=== PATIENT | male | born 1965 | race Caucasian/White ===

== ENCOUNTER 2020-03-17 08:34 | Outpatient (CLI) | payer MEDICARE, MEDICAID, SELFPAY ==
--- NOTE | 2020-03-17 08:42 | NM_ITS ---
WS: [id number] RI bone 3 phase [id number] REASON FOR EXAM: CHRONIC PAIN OF LEFT L EXTREMITY/L ANKLE PAIN/OSTEOMYELITIS TECHNICAL: 3 phase bone scan the dose 23.5 mCi technetium labeled MDP. Patient was scanned immediatel y with delayed images and further delayed images. The blood pool images show increased activity along the shaft of the left tibia x-ray show this is a remote fracture. There is also increased activity n oted in the mid the fibula at this also is a fracture which is healing. The alignment is satisfactory Three-phase study showed no evidence to suggest infection. The remaining skeletal system showed homogeneous configuration no pathological activity is seen. RI/RI bone 3 phase [id number] IMPRESSION: Activity is seen in the mid shaft of the left tibia fibula review of x-ray show healing fractures in this area with internal fixation.
--- NOTE | 2020-03-17 11:52 | XR_ITS ---
WS: [id number] XR tibia fibula LT 2V [id number] REASON FOR EXAM: BONE SCAN COMPARISON FINDINGS: Tibia fibula on the left were evaluated due to slight abnormal changes on the bone scan. Th e changes are suggestive of healing fractures which are in good alignment a elizondo pin is seen. XR/XR tibia fibula LT 2V [id number] IMPRESSION: Area of increased activity on the bone scan is secondary to previous postop aminata nges of the tibia fibula from fractures.
== END 2020-03-17 08:35 | disposition home or self-care (01) ==
LOC: RAD 08:40
PROVIDERS: PCP Family Medicine; Visit Provider Family Medicine
DX: M79.605 Pain in left leg (principal); G89.29 Other chronic pain; M25.572 Pain in left ankle and joints of left foot; M86.8X6 Other osteomyelitis, lower leg
CPT/HCPCS: 73590; 78315; A9561

== ENCOUNTER → 2020-03-31 11:06 | Outpatient (BNVA) | payer MEDICARE, MEDICAID, SELFPAY | PROVIDERS: PCP Family Medicine; Referring Provider Family Medicine; Visit Provider Specialist | DX: S82.202A Unspecified fracture of shaft of left tibia, initial encounter for closed fracture (principal); S82.402A Unspecified fracture of shaft of left fibula, initial encounter for closed fracture; X58.XXXA Exposure to other specified factors, initial encounter | CPT/HCPCS: 73590 ==

== ENCOUNTER 2020-04-12 17:46 | Inpatient (IN) | payer MEDICARE, MEDICAID, SELFPAY ==
[2020-04-12 17:50] VITALS: BP 127/70; PULSE 65; RESP 18; TEMP 36.9; O2SAT 96; BMI 20.4
--- NOTE | 2020-04-12 18:14 | ED_ITS ---
HPI - Psych General: Chief Complaint: Psychiatric Symptoms Stated Complaint: MHE Time Seen by Provider: 04/12/20 17:55 History of Present Illness: HPI Narrative: Patient says he did not want to live anymore he was on the phone with the doctor today because he is trying get increasing his pain medications he tolerated while living more tired living this way she called ambulance and he is here now very upset because he just hurts he says he can go another day like this he is wants to take his life does not have a plan. complaint: suicidal ideation Onset (ago): week(s) Duration: constant and getting worse History of same: Yes Relieving factors: none Context: other (Had his medicines cut back for pain control) Associated psychiatric symptoms: depression and suicidal ideation Associated symptoms: Reports no associated symptoms and depression Treatments prior to arrival: none If self harm: admits thoughts of self harm Review of Systems Const: Denies: fever(s), chills or body aches Eyes: Denies: change in vision or blurry vision ENMT: Denies: throat pain or nasal congestion Card: Denies: chest pain or dyspnea on exertion Resp: Denies: dyspnea, productive cough or non-productive cough GI: Denies: abdominal pain, nausea or vomiting : Denies: difficulty urinating Musc: Reports: neck pain, back pain, extremity pain and joint pain Skin/Breast: Denies: rash Neuro: Denies: headache(s) Psych: Reports: depression; Denies: anxiety Jacques/Lymph: Denies: easy bruising PFSH ED PFSH: Medical History (Updated 04/02/20 @ 14:03 by Cande Dupont MD) ASHD (arteriosclerotic heart disease) CHF (congestive heart failure) GERD (gastroesophageal reflux disease) Hyperlipidemia IBS (irritable bowel syndrome) Nonischemic cardiomyopathy Surgical History S/P appendectomy S/P cholecystectomy S/P ICD (internal cardiac defibrillator) procedure Family History Mother Cancer Social History Smoking and tobacco status: never smoked Household members: spouse Marital status: Physical Exam Const: COMMON NORMALS: no acute distress, average body habitus and patient oriented x3 HENMT: COMMON NORMALS: normocephalic HEAD & SCALP: normal to inspection and normocephalic FACE & SINUS: normal facial exam Eye: COMMON NORMALS: conjunctivae normal GENERAL EYE: appearance normal, both eyes and all related structures CONJUNCTIVA: Yes conjunctivae normal Neck/C-Spine: COMMON NORMALS: no JVD Chest: COMMONS NORMALS: normal inspection of the chest Resp: COMMON NORMALS: normal respiratory effort and clear to auscultation bilaterally AUSCULTATION: clear to auscultation bilaterally Cardio: COMMON NORMALS: no JVD, regular rate and regular rhythm RATE: regular rate RHYTHM: regular rhythm GI: COMMON NORMALS: Normal to inspection, nondistended, normoactive bowel sounds present Extremity: COMMON NORMALS: normal to inspection and full ROM Neuro: COMMON NORMALS: patient oriented x3 Psych: COMMON NORMALS: Normal thought process present, cooperative and speech normal APPEARANCE: Yes grossly normal ATTITUDE: Yes agitated ACTIVITY/MOTOR BEHAVIOR: Yes appropriate eye contact SPEECH: Yes normal speech MOOD & AFFECT: Yes depressed mood THOUGHT PROCESS: Normal thought process present THOUGHT CONTENT: Yes Normal thought content present ATTENTION/CONCENTRATION: Yes attention grossly intact MEMORY/COGNITION: Yes memory grossly intact INSIGHT: Good insight present (Psych) JUDGEMENT: Good judgement present (Psych) MDM - Psych MDM Narrative: Medical decision making narrative: spoke with Dr. Edward - will admit Lab Data: Labs: Lab Results 04/12/20 04/12/20 04/12/20 Range/Units 18:55 18:55 19:40 WBC 10.0 (4.0-10.0) 10^3/ uL RBC 5.24 (4.1-5.3) 10^6/u L Hgb 15.0 (11.7-16.6) g/dL Hct 45.0 (42.0-52.0) % MCV 85.9 (80-94) fL MCH 28.6 (28.0-34.0) pg MCHC 33.3 (30.0-36.0) g/dL RDW 12.7 (12.1-15.1) % Plt Count 263 (130-400) 10^3/c mm MPV 9.2 (7.4-10.4) fL Neut % (Auto) 64.3 % Lymph % (Auto) 24.1 % [place] % (Auto) 9.4 % Eos % (Auto) 1.6 % Baso % (Auto) 0.4 % Neut # (Auto) 6.4 (1.8-7.7) 10^3/u L Lymph # (Auto) 2.4 (0.8-4.8) 10^3/u L [place] # (Auto) 0.9 (0.2-0.9) 10^3/u L Eos # (Auto) 0.2 (0.0-0.8) 10^3/u L Baso # (Auto) 0.0 (0.0-0.1) 10^3/u L Nucleated RBC % (a uto) 0 % Nucleated RBCs # 0.0 /100WBC Sodium 140 (136-145) mmol/L Potassium 3.9 (3.5-5.1) mmol/L Chloride 102 (98-107) mmol/L Carbon Dioxide 23 (22-29) mmol/L Anion Gap 18.9 (5-19) BUN 13 (6-20) mg/dL Creatinine 0.9 (0.7-1.2) mg/dL GFR Calculation 87.9 L (90-130) mL/min Glucose 167 H (65-115) mg/dL Calculated Osmolal ity 290 (285-295) mOsm/k g Calcium 9.5 (8.5-10.5) mg/dL Urine Color Yellow (Yellow) Urine Appearance Clear (CLEAR) Urine pH 5 (5-7) Ur Specific Gravit y 1.025 (1.005-1.030) Urine Protein Neg (Negative) Urine Glucose (UA) 2+ (Normal) Urine Ketones Negative (Negative) Urine Blood Neg (Negative) Urine Nitrate Negative (Negative) Urine Bilirubin Neg (NEGATIVE) Urine Urobilinogen Norm (Negative) mg/dL Ur Leukocyte Sandi ase Negative (Negative) Salicylates < 0.3 L (3-10) mg/dL Urine Opiates Scre en (Negative) ng/mL Acetaminophen < 5.0 L (10-30) ug/mL Ur Barbiturates Sc reen (Negative) ng/mL Ur Phencyclidine S crn (Negative) ng/mL Ur Amphetamines Sc reen (Negative) ng/mL U Benzodiazepines Scrn (Negative) ng/mL Urine Cocaine Scre en (Negative) ng/mL U Marijuana (THC) Screen (Negative) ng/mL Ethyl Alcohol < 10 (0-10) mg/dL 04/12/20 Range/Units 19:40 WBC (4.0-10.0) 10^3/ uL RBC (4.1-5.3) 10^6/u L Hgb (11.7-16.6) g/dL Hct (42.0-52.0) % MCV (80-94) fL MCH (28.0-34.0) pg MCHC (30.0-36.0) g/dL RDW (12.1-15.1) % Plt Count (130-400) 10^3/c mm MPV (7.4-10.4) fL Neut % (Auto) % Lymph % (Auto) % [place] % (Auto) % Eos % (Auto) % Baso % (Auto) % Neut # (Auto) (1.8-7.7) 10^3/u L Lymph # (Auto) (0.8-4.8) 10^3/u L [place] # (Auto) (0.2-0.9) 10^3/u L Eos # (Auto) (0.0-0.8) 10^3/u L Baso # (Auto) (0.0-0.1) 10^3/u L Nucleated RBC % (a uto) % Nucleated RBCs # /100WBC Sodium (136-145) mmol/L Potassium (3.5-5.1) mmol/L Chloride (98-107) mmol/L Carbon Dioxide (22-29) mmol/L Anion Gap (5-19) BUN (6-20) mg/dL Creatinine (0.7-1.2) mg/dL GFR Calculation (90-130) mL/min Glucose (65-115) mg/dL Calculated Osmolal ity (285-295) mOsm/k g Calcium (8.5-10.5) mg/dL Urine Color (Yellow) Urine Appearance (CLEAR) Urine pH (5-7) Ur Specific Gravit y (1.005-1.030) Urine Protein (Negative) Urine Glucose (UA) (Normal) Urine Ketones (Negative) Urine Blood (Negative) Urine Nitrate (Negative) Urine Bilirubin (NEGATIVE) Urine Urobilinogen (Negative) mg/dL Ur Leukocyte Sandi ase (Negative) Salicylates (3-10) mg/dL Urine Opiates Scre en Negative (Negative) ng/mL Acetaminophen (10-30) ug/mL Ur Barbiturates Sc reen Negative (Negative) ng/mL Ur Phencyclidine S crn Negative (Negative) ng/mL Ur Amphetamines Sc reen Negative (Negative) ng/mL U Benzodiazepines Scrn Negative (Negative) ng/mL Urine Cocaine Scre en Negative (Negative) ng/mL U Marijuana (THC) Screen Negative (Negative) ng/mL Ethyl Alcohol (0-10) mg/dL Discharge Plan Discharge Prescriptions: No Action clonazepam [Klonopin] 1 mg tablet 1 mg PO QID RF: 0 lisinopril 2.5 mg tablet 2.5 mg PO DAILY RF: 0 sotalol [Betapace] 120 mg tablet 120 mg PO BID RF: 0 oxycodone See Rx Instructions .ROUTE .COMPLEX PRN (Reason: Pain) RF: 0 magnesium oxide 500 mg capsule 500 mg PO DAILY RF: 0 Trintellix 5 mg tablet 5 mg PO DAILY RF: 0 Coding Level of Care Code ED 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
[2020-04-12 18:31] VITALS: RESP 20
[2020-04-12] MEDS: oxyCODONE-APAP 10-325 mg Tablet 1 TAB PO (18:31)
[2020-04-12 19:07] LABS: Basophils % 0.4 %; Eosinophils # 0.2 10^3/uL (0.0-0.8); Eosinophils % 1.6 %; Lymphocytes # 2.4 10^3/uL (0.8-4.8); Lymphocytes % 24.1 %; Mean Corpuscular HGB Conc 33.3 g/dL (30.0-36.0); Mean Corpuscular Hemoglobin 28.6 pg (28.0-34.0); Mean Corpuscular Volume 85.9 fL (80-94); Mean Platelet Volume 9.2 fL (7.4-10.4); Monocytes # 0.9 10^3/uL (0.2-0.9); Monocytes % 9.4 %; Neutrophils # 6.4 10^3/uL (1.8-7.7); Neutrophils % 64.3 %; Nucleated Red Blood Cells % 0 %; Platelet Count 263 10^3/cmm (130-400); Red Blood Count 5.24 10^6/uL (4.1-5.3); Red Cell Distribution Width 12.7 % (12.1-15.1)
[2020-04-12 19:30] LABS: Anion Gap 18.9 (5-19); Blood Urea Nitrogen 13 mg/dL (6-20); Calcium 9.5 mg/dL (8.5-10.5); Carbon Dioxide 23 mmol/L (22-29); Chloride 102 mmol/L (98-107); Glomerular Filtration Rate 87.9 mL/min (90-130); Glucose 167 mg/dL (65-115); Osmolality Calculated 290 mOsm/kg (285-295); Potassium 3.9 mmol/L (3.5-5.1); Sodium 140 mmol/L (136-145)
[2020-04-12 19:49] LABS: Add Urine Microscopic? NO
[2020-04-12 19:52] LABS: Bilirubin Urine Neg (NEGATIVE); Blood Urine Neg (Negative); Glucose Urine UA 2+ (Normal); Ketones Urine Negative (Negative); Leukocyte Esterase Urine Negative (Negative); Nitrate Urine Negative (Negative); Protein Urine Neg (Negative); Specific Gravity, Urine 1.025 (1.005-1.030); Urine Appearance Clear (CLEAR); Urine Color Yellow (Yellow); Urobilinogen Urine Norm (Negative); pH Urine 5 (5-7)
[2020-04-12 20:01] LABS: Amphetamines Screen Urine Negative (Negative); Barbiturates Screen Urine Negative (Negative); Benzodiazepines Screen Urine Negative (Negative); Cocaine Screen Urine Negative (Negative); Opiate Screen Urine Negative (Negative); PCP Screen Urine Negative (Negative); THC Screen Urine Negative (Negative)
[2020-04-12 20:14] LABS: Acetaminophen < 5.0 ug/mL (10-30); Alcohol Level < 10 mg/dL (0-10); Salicylate < 0.3 mg/dL (3-10)
[2020-04-12 21:42] VITALS: BP 126/69; PULSE 85; RESP 14; O2SAT 98
[2020-04-12 22:24] VITALS: BP 110/70; PULSE 86; RESP 18; TEMP 36.6; O2SAT 97
[2020-04-12] MEDS: trazodone 50 mg Tablet PO (23:38)
[2020-04-12] MEDS: hyDROXYzine 25 mg Capsule 50 MG PO (23:38)
[2020-04-13] VITALS (9 sets, daily range): BP systolic 88–112; BP diastolic 55–69; PULSE 70–88; RESP 16–20; TEMP 36.8–37; O2SAT 95–98
[2020-04-13] MEDS: oxyCODONE-APAP 10-325 mg Tablet 1 TAB PO ×4 (00:21→20:13)
[2020-04-13] MEDS: lisinopril 5 mg Tablet 2.5 MG PO (08:06)
[2020-04-13] MEDS: sotalol 80 mg Tablet 120 MG PO ×2 (08:06→17:20)
[2020-04-13] MEDS: CLONazepam 1 mg Tablet PO ×4 (08:06→20:13)
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
[2020-04-13] MEDS: ARIPiprazole 10 mg Tablet PO (17:20)
[2020-04-14 05:41] VITALS: RESP 17; O2SAT 96
[2020-04-14] MEDS: oxyCODONE-APAP 10-325 mg Tablet 1 TAB PO ×2 (05:41→11:56)
[2020-04-14 06:00] VITALS: BP 97/59; PULSE 76; RESP 17; TEMP 36.7; O2SAT 96
[2020-04-14] MEDS: sotalol 80 mg Tablet 120 MG PO (08:27)
[2020-04-14] MEDS: lisinopril 5 mg Tablet 2.5 MG PO (08:30)
[2020-04-14] MEDS: CLONazepam 1 mg Tablet PO ×2 (08:30→13:14)
[2020-04-14] MEDS: ARIPiprazole 10 mg Tablet PO (08:30)
--- NOTE | 2020-04-14 11:14 | PC.SOCIAL ---
important message for medicare provided. signed and dated copy in chart and copy given to patient.
[2020-04-14 11:56] VITALS: RESP 18
--- NOTE | 2020-04-14 12:02 | PC.NURSE ---
PT NOTE PT RECEIVED OXYCODONE FOR PAIN
[2020-04-14 13:33] VITALS: PULSE 72; RESP 17; O2SAT 95
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
[2020-04-14 15:15] VITALS: BP 128/85; PULSE 72; RESP 17; O2SAT 95
== END 2020-04-14 15:29 | disposition home or self-care (01) | DRG 880 ==
LOC: ER 18:19 → NP 21:05
PROVIDERS: Nurse Practitioner Family; Admitting Provider Psychiatry & Neurology Psychiatry; PCP Family Medicine; Visit Provider Psychiatry & Neurology Psychiatry
DX: F41.8 Other specified anxiety disorders (principal); I42.8 Other cardiomyopathies; Z95.810 Presence of automatic (implantable) cardiac defibrillator; I50.9 Heart failure, unspecified; E78.5 Hyperlipidemia, unspecified; I25.10 Atherosclerotic heart disease of native coronary artery without angina pectoris; F10.10 Alcohol abuse, uncomplicated; I11.0 Hypertensive heart disease with heart failure
CPT/HCPCS: 12345; 36415; 80048; 80306; 80307; 81003; 85025; 99284

== ENCOUNTER 2020-04-30 04:07 | Inpatient (IN) | payer MEDICARE, MEDICAID, SELFPAY ==
[2020-04-30] VITALS (13 sets, daily range): BP systolic 91–142; BP diastolic 55–86; PULSE 57–92; RESP 11–20; TEMP 36.6–37; O2SAT 92–98; BMI 33.0
--- NOTE | 2020-04-30 04:31 | XRR_ITS ---
PROCEDURE INFORMATION: Exam: XR Chest, 1 View Exam date and time: 04/30/2020 4:36 AM Age: 54 years old Clinical indication: Dyspnea; Prior surgery; Surgery date: 6+ months; Surgery type: Pacer TECHNIQUE: Imaging protocol: XR of the chest Views: 1 view. COMPARISON: CR Chest 1 [place] [id number] 10/06/2019 1:13 PM FINDINGS: Tubes, catheters and devices: AICD. Lungs: Emphysematous change, without acute infiltrate. Pleural space: No pleural effusion. Heart/Mediastinum: No cardiomegaly. Bones/joints: Degenerative change. Status post ORIF of left clavicular fracture. When correlating with the previous study, no significant interval changes are present. XR/XR chest 1V portable [id number] IMPRESSION: Stable appearance of the chest, not significantly changed from 10/06/19.
--- NOTE | 2020-04-30 04:32 | ECG_ITS ---
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 Measurements Intervals Dewitt Rate: 74 P: 62 MT: 176 QRS: 64 QRSD: 110 T: 71 QT: 382 QTc: 426 Interpretive Statements SINUS RHYTHM Compared to ECG 05/30/2019 02:40:09 Sinus bradycardia no longer present Electronically Signed On 04-30-2020 22:47:27 CDT by Hosea Mendoza M.D. [email or web address]
[2020-04-30] MEDS: ondansetron 2 mg/ML SDV 2 mL 4 MG IVP (04:42)
--- NOTE | 2020-04-30 05:01 | ED_ITS ---
Documented by User: Jessica Tong 04/30/20 05:08 HPI - SOB/Dyspnea General: Chief Complaint: Shortness of Breath/Dyspnea Stated Complaint: sob Time Seen by Provider: 04/30/20 04:20 Source: patient Mode of arrival: ambulatory Limitations: no limitations History of Present Illness: HPI Narrative: Mr. Garcia is a nice 54-year-old male who comes in complaining of shortness of breath. Symptoms have been going on for the past 2 days. He has orthopnea, and dyspnea on exertion. He denies fever or cough. He denies any ill contacts. Patient states he was here and admitted for similar symptoms approximately 3 years ago but he is uncertain of the formal diagnosis. He denies any leg pain or swelling. He adamantly denies any chest pain. He does state that he feels somewhat nauseated but he denies any abdominal or back pain. Exertion makes his symptoms worse and rest makes them better. The patient states he feels most comfortable sitting in upright position in bed or in a chair. He is not tried anything for this at home and he does not think he has been in contact with anyone with the COVID virus. Associated symptoms: Reports nausea and orthopnea; Deny abdominal pain, chest congestion, chest pain, diaphoresis, dizziness, extremity pain, fever(s), hemoptysis, lightheadedness, palpitations, syncope or vomiting Review of Systems Const: Denies: fever(s), chills, body aches, fatigue, malaise or diaphoresis Eyes: Denies: change in vision, blurry vision, blind spots, photophobia, eye discharge or eye redness ENMT: Denies: throat pain, odynophagia, hoarseness, swelling of lips/tongue, oral sores, ear or mastoid pain, ear discharge, change in hearing or nasal discharge Card: Reports: dyspnea on exertion and orthopnea; Denies: chest pain, palpitations, irregular heart rhythm, edema, lightheadedness, syncope or pre-syncope Resp: Reports: dyspnea; Denies: productive cough, non-productive cough, wheezing, hemoptysis or chest congestion GI: Reports: nausea; Denies: abdominal pain, vomiting, hematemesis, coffee ground emesis, heartburn, diarrhea, constipation, GI cramping, hematochezia or melena : Denies: flank pain, dysuria, urinary frequency, urinary urgency or hematuria Musc: Denies: neck pain, back pain, extremity pain, extremity swelling, joint pain, joint swelling, joint redness, joint warmth or joint stiffness Skin/Breast: Denies: rash, pruritus, erythema, skin tenderness or jaundice Neuro: Denies: headache(s), numbness in extremities, weakness in extremities, sensory changes, lack of coordination, difficulty walking, dizziness, vertigo, confusion, Slurred speech present or seizure-like activity Jacques/Lymph: Denies: easy bruising, easy bleeding, petechiae, purpura or enlarged lymph nodes All/Imm: Denies: urticaria, throat swelling, tongue swelling, facial swelling or acute wheezing PFSH ED PFSH: Medical History (Updated 05/03/20 @ 00:00 by ) Anxiety -f/u at [facility] -on Clonazepam ASHD (arteriosclerotic heart disease) Atrial fibrillation Remains in sinus rhythm. Continue current regimen CHF (congestive heart failure) -acute exacerbation, BNP-73 -Echo (05/2019): EF=61%, G1DD, trace MR, trace to mild TR, trace WA -not on chronic diuretics; on IV Lasix -daily weights, monitor Is & Os; total negative fluid balance of 3.2 L Depression Elevated troponin -noted troponins with 2-hr delta of 10.40, 6hr troponin lower with no signi ficant delta -serial ECGs, so far, no acute ischemic changes -telemetry monitoring -has known hx of non-ischemic cardiomyopathy s/p pacemaker/AICD -had prior nuclear stress testing done in 05/2019 showing small sized reversible perfusion abnormality of mild severity of apical inferior and apical lateral doherty that may represent small area of ischemia in LAD territory -Cardiology evaluation by Dr. Mendoza appreciated; IV diuresis -VSS; continue to monitor -received dose of therapeutic lovenox, ASA 325 mg in ED -on ASA -Echo (05/2019): EF=61%, G1DD, trace MR, trace to mild TR, trace WA -noted lipid panel, A1c, TSH; start on statin -PAULINA -CXR unremarkable -unable to tolerate Imdur, persistent DUNN GERD (gastroesophageal reflux disease) Hyperlipidemia -started on statin, noted lipid panel Hypertension -initially hypertensive, BP well controlled -on oral antihypertensives -continue to monitor vital signs IBS (irritable bowel syndrome) Nonischemic cardiomyopathy -f/u with Dr. Welsh -has pacemaker and AICD, no recent firing Surgical History S/P appendectomy S/P cholecystectomy S/P ICD (internal cardiac defibrillator) procedure Family History Mother Cancer Social History Smoking and tobacco status: never smoked Alcohol intake: former Substance/Drug Use: never Lives independently: Yes Physical Exam Const: COMMON NORMALS: no acute distress, patient oriented x3, no limitations, healthy appearing and well nourished GENERAL APPEARANCE: cooperative, well kempt and well developed HENMT: COMMON NORMALS: normocephalic, atraumatic, external ears normal, EAC's normal and Normal external nose present HEAD & SCALP: normal to inspection, normocephalic and atraumatic FACE & SINUS: normal facial exam and face sym metric NOSE: Normal external nose present and Normal nares present EXTERNAL EAR: Yes external ears normal EXTERNAL AUDITORY CANAL: EAC's normal MOUTH: Normal oral and palatal mucosa present, lip normal and tongue normal Eye: COMMON NORMALS: Equal, round and reactive pupils present and conjunctivae normal GENERAL EYE: appearance normal, both eyes and all related structures ALIGNMENT: Yes alignment normal PERIORBITAL: periorbital findings normal EYELID: eyelids normal CONJUNCTIVA: Yes conjunctivae normal SCLERA: sclerae normal PUPIL: Yes Equal, round and reactive pupils present Neck/C-Spine: COMMON NORMALS: full ROM, no lymphadenopathy, supple, no meningeal signs and no JVD GENERAL: Yes normal visual inspection and Yes trachea midline Chest: COMMONS NORMALS: normal inspection of the chest and normal palpation of entire chest wall Resp: COMMON NORMALS: normal respiratory effort, No retractions and No use of accessory muscles EFFORT & INSPECTION: Yes able to speak in complete sentences and Yes symmetric chest movement AUSCULTATION: no crackles, no rales, no rhonchi and no wheezes Cardio: COMMON NORMALS: no JVD, regular rate, regular rhythm, S1 normal heart sound present and S2 normal heart sound present RATE: regular rate RHYTHM: regular rhythm HEART SOUNDS: S1 normal heart sound present, S2 normal heart sound present, no click, no gallops, no murmurs, no rubs and abnormal split S2 GI: COMMON NORMALS: Soft to palpation and No hepatosplenomegaly present PALPATION: Yes Soft to palpation, No Tenderness to palpation present (GI), No Guarding due to palpation present (GI), No Rigid due to palpation, Yes No hepatosplenomegaly present, No Hernia present, No Palpable mass present and No Pulsatile mass present : COMMON NORMALS: Yes no CVA tenderness BLADDER/KIDNEY EXAM: Yes no CVA tenderness Back/Pelvis: COMMON NORMALS: no CVA tenderness, thoracic and lumbar spine normal to inspection, no thoracic nor lumbar tenderness and thoraco-lumbar ROM normal Extremity: COMMON NORMALS: normal to inspection, full ROM, capillary refill normal, no joint enlargement, no clubbing, cyanosis or edema and no calf tenderness Neuro: COMMON NORMALS: patient oriented x3, CN's II-XII intact bilaterally, moves all extremities, no focal motor deficits and no sensory deficits noted MENINGEAL SIGNS: Yes no meningeal signs SPEECH: speech normal Psych: COMMON NORMALS: mental status grossly normal, Normal thought process present, cooperative, normal affect, speech normal and activity/motor behavior normal APPEARANCE: Yes well kempt SPEECH: Yes normal speech THOUGHT PROCESS: Normal thought process present Skin: COMMON NORMALS: no rashes or lesions noted, turgor normal, no jaundice, no petechiae and no mottling GENERAL SKIN EXAM: no rashes or lesions noted and turgor normal Course Vital Signs: Vital signs: Vital Signs Temperature 98.2 F 05/02/20 11:21 Pulse Rate 68 05/02/20 12:51 Respiratory Rate 16 05/02/20 12:51 Blood Pressure 102/61 05/02/20 12:51 Pulse Oximetry 94 05/02/20 12:51 MDM - SOB/Dyspnea Lab Data: Labs: Lab Results 04/30/20 04/30/20 04/30/20 Range/Units 04:40 04:40 04:40 WBC 7.3 (4.0-10.0) 10^3/ uL RBC 5.42 H (4.1-5.3) 10^6/u L Hgb 15.5 (11.7-16.6) g/dL Hct 46.8 (42.0-52.0) % MCV 86.3 (80-94) fL MCH 28.6 (28.0-34.0) pg MCHC 33.1 (30.0-36.0) g/dL RDW 12.6 (12.1-15.1) % Plt Count 298 (130-400) 10^3/c mm MPV 9.6 (7.4-10.4) fL Neut % (Auto) 62.4 % Lymph % (Auto) 21.6 % Gonzales % (Auto) 9.2 % Eos % (Auto) 5.5 % Baso % (Auto) 0.7 % Neut # (Auto) 4.54 (1.8-7.7) 10^3/u L Lymph # (Auto) 1.6 (0.8-4.8) 10^3/u L Gonzales # (Auto) 0.7 (0.2-0.9) 10^3/u L Eos # (Auto) 0.4 (0.0-0.8) 10^3/u L Baso # (Auto) 0.1 (0.0-0.1) 10^3/u L Nucleated RBC % (a uto) 0 % Nucleated RBCs # 0.0 /100WBC PT 13.30 (10.5-13.3) SECO NDS INR 0.98 (0.8-1.2) D-Dimer 0.34 (0-0.59) ug/mIFE U Sodium 138 (136-145) mmol/L Potassium 4.4 (3.5-5.1) mmol/L Chloride 102 (98-107) mmol/L Carbon Dioxide 24 (22-29) mmol/L Anion Gap 16.4 (5-19) BUN 11 (6-20) mg/dL Creatinine 0.9 (0.7-1.2) mg/dL GFR Calculation 87.9 L (90-130) mL/min Glucose 233 H (65-115) mg/dL Calculated Osmolal ity 290 (285-295) mOsm/k g Lactic Acid (0.5-2.2) mmol/L Calcium 9.0 (8.5-10.5) mg/dL Magnesium 2.1 (1.7-2.3) mg/dL Total Bilirubin 1.3 H (0.15-1.2) mg/dL AST 16 (0-40) U/L ALT 22 (0-41) U/L Alkaline Phosphata se 107 (40-130) IU/L Troponin T Baselin e (0-15) ng/L Troponin T 120 Min [place] (0-15) ng/L Delta Troponin T (0-10) ABS# NT-Pro-B Natriuret Pep 73 (0-125) pg/mL Total Protein 7.1 (6.6-8.7) g/dL Albumin 4.4 (3.5-5.2) g/dL Globulin 2.7 (1.3-4.6) g/dL 04/30/20 04/30/20 04/30/20 Range/Units 04:40 04:40 06:27 WBC (4.0-10.0) 10^3/ uL RBC (4.1-5.3) 10^6/u L Hgb (11.7-16.6) g/dL Hct (42.0-52.0) % MCV (80-94) fL MCH (28.0-34.0) pg MCHC (30.0-36.0) g/dL RDW (12.1-15.1) % Plt Count (130-400) 10^3/c mm MPV (7.4-10.4) fL Neut % (Auto) % Lymph % (Auto) % Gonzales % (Auto) % Eos % (Auto) % Baso % (Auto) % Neut # (Auto) (1.8-7.7) 10^3/u L Lymph # (Auto) (0.8-4.8) 10^3/u L Gonzales # (Auto) (0.2-0.9) 10^3/u L Eos # (Auto) (0.0-0.8) 10^3/u L Baso # (Auto) (0.0-0.1) 10^3/u L Nucleated RBC % (a uto) % Nucleated RBCs # /100WBC PT (10.5-13.3) SECO NDS INR (0.8-1.2) D-Dimer (0-0.59) ug/mIFE U Sodium (136-145) mmol/L Potassium (3.5-5.1) mmol/L Chloride (98-107) mmol/L Carbon Dioxide (22-29) mmol/L Anion Gap (5-19) BUN (6-20) mg/dL Creatinine (0.7-1.2) mg/dL GFR Calculation (90-130) mL/min Glucose (65-115) mg/dL Calculated Osmolal ity (285-295) mOsm/k g Lactic Acid 2.3 H (0.5-2.2) mmol/L Calcium (8.5-10.5) mg/dL Magnesium (1.7-2.3) mg/dL Total Bilirubin (0.15-1.2) mg/dL AST (0-40) U/L ALT (0-41) U/L Alkaline Phosphata se (40-130) IU/L Troponin T Baselin e 11 (0-15) ng/L Troponin T 120 Min [place] 21.40 H (0-15) ng/L Delta Troponin T 10.40 H* (0-10) ABS# NT-Pro-B Natriuret Pep (0-125) pg/mL Total Protein (6.6-8.7) g/dL Albumin (3.5-5.2) g/dL Globulin (1.3-4.6) g/dL Imaging Data^: CXR: My impression: No acute cardiopulmonary findings. ICD in place. No pulmonary edema or focal infiltrates. EKG Data^: EKG 1: Attestation: I personally reviewed and interpreted this EKG as follows: EKG Interpretation Date: 04/30/20 EKG interpretation time: 04:48 Interpretation: Normal sinus rhythm at 74 beats a minute, wandering baseline artifact present, benign early repolarization diffusely. T wave inversions with minimal ST depression in aVL, findings consistent with previous. Discharge Plan Discharge Patient Disposition: Placed in Observation Admit Provider: Nancy Cisse Condition: Stable Referrals: Hosea Mendoza MD [Physician] - 1 month (You have a cardiology followup with Dr. Mendoza at [facility] on May 23 at 1:15pm.) Billie Hylton FNP [Nurse Practitioner] - 1 week (For follow up including labs) Tash Zimmerman DO [Primary Care Provider] - 4-7 days (You have a post hospital discharge follow up with Dr. Rizvi in her office on May 10 at 9:45am. ) Discharge Diet: Cardiac Discharge Activity: Increase activity as tolerated Patient Instructions: Furosemide (By mouth), Potassium Chloride (By mouth), Atorvastatin (By mouth), Hypertension, Heart Failure (GEN), Dyspnea (GEN), DASH Eating Plan (DC), CHF Stoplight Additional Instructions: Please follow-up with Billie Hylton in 7 days with blood pressure pulse and daily weight record. Please take extra Lasix if you gain more than 3 pound in 2 consecutive days. Please take less than 2 g of sodium in 24 hours. Discharge Date/Time: 04/30/20 09:20 Sign Out Sign Out Data: Patient Sign Out occurred on 04/30/20 at 05:53. Patient's care was discussed, and care was transferred from Jessica Tong to Brayden Gates DO. Sign Out Comment: Case turned over to Dr. Gates at change of shift. Last updated by Jessica Tong at 04/30/20 05:35 Coding Level of Care Code ED Tumbler Tender for Chg 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 Documented by User: Brayden Gates DO 05/03/20 07:26 HPI - SOB/Dyspnea General: Chief Complaint: Shortness of Breath/Dyspnea Stated Complaint: sob Time Seen by Provider: 04/30/20 04:20 PFSH ED PFSH: Medical History (Updated 05/03/20 @ 00:00 by ) Anxiety -f/u at [facility] -on Clonazepam ASHD (arteriosclerotic heart disease) Atrial fibrillation Remains in sinus rhythm. Continue current regimen CHF (congestive heart failure) -acute exacerbation, BNP-73 -Echo (05/2019): EF=61%, G1DD, trace MR, trace to mild TR, trace WA -not on chronic diuretics; on IV Lasix -daily weights, monitor Is & Os; total negative fluid balance of 3.2 L Depression Elevated troponin -noted troponins with 2-hr delta of 10.40, 6hr troponin lower with no significant delta -serial ECGs, so far, no acute ischemic changes -telemetry monitoring -has known hx of non-ischemic cardiomyopathy s/p pacemaker/AICD -had prior nuclear stress testing done in 05/2019 showing small sized reversible perfusion abnormality of mild severity of apical inferior and apical lateral doherty that may represent small area of ischemia in LAD territory -Cardiology evaluation by Dr. Mendoza appreciated; IV diuresis -VSS; continue to monitor -received dose of therapeutic lovenox, ASA 325 mg in ED -on ASA -Echo (05/2019): EF=61%, G1DD, trace MR, trace to mild TR, trace WA -noted lipid panel, A1c, TSH; start on statin -PAULINA -CXR unremarkable -unable to tolerate Imdur, persistent DUNN GERD (gastroesophageal reflux disease) Hyperlipidemia -started on statin, noted lipid panel Hypertension -initially hypertensive, BP well controlled -on oral antihypertensives -continue to monitor vital signs IBS (irritable bowel syndrome) Nonischemic cardiomyopathy -f/u with Dr. Welsh -has pacemaker and AICD, no recent firing Surgical History S/P appendectomy S/P cholecystectomy S/P ICD (internal cardiac defibrillator) procedure Family History Mother Cancer Social History Smoking and tobacco status: never smoked Alcohol intake: former Substance/Drug Use: never Lives independently: Yes Course Vital Signs: Vital signs: Vital Signs Temperature 98.2 F 05/02/20 11:21 Pulse Rate 68 05/02/20 12:51 Respiratory Rate 16 05/02/20 12:51 Blood Pressure 102/61 05/02/20 12:51 Pulse Oximetry 94 05/02/20 12:51 MDM - SOB/Dyspnea MDM Narrative: Medical decision making narrative: Patient has a positive delta troponin of 10.4. He has known history of cardiomyopathy and has an implantable defibrillator pacer. His pacer is not activated at this time although he does have a sinus bradycardia at times into the 60s. He has early repull changes but no ST elevation we did send the EKG to Dr. Nguyen we also reviewed it from compared to previous EKG in May 2019. He did have a stress test last year in May that was positive for reversible ischemia in the distribution of the LAD I cannot find that he had an angiogram after that it looks like he has been managed medically. With a positive troponin will have to keep him get his further evaluation I want to have cardiology see him discussed with Dr. Casas he she is agreeable to admitting to her service. Lab Data: Labs: Lab Results 04/30/20 04/30/20 04/30/20 Range/Units 04:40 04:40 04:40 WBC 7.3 (4.0-10.0) 10^3/ uL RBC 5.42 H (4.1-5.3) 10^6/u L Hgb 15.5 (11.7-16.6) g/dL Hct 46.8 (42.0-52.0) % MCV 86.3 (80-94) fL MCH 28.6 (28.0-34.0) pg MCHC 33.1 (30.0-36.0) g/dL RDW 12.6 (12.1-15.1) % Plt Count 298 (130-400) 10^3/c mm MPV 9.6 (7.4-10.4) fL Neut % (Auto) 62.4 % Lymph % (Auto) 21.6 % Gonzales % (Auto) 9.2 % Eos % (Auto) 5.5 % Baso % (Auto) 0.7 % Neut # (Auto) 4.54 (1.8-7.7) 10^3/u L Lymph # (Auto) 1.6 (0.8-4.8) 10^3/u L Gonzales # (Auto) 0.7 (0.2-0.9) 10^3/u L Eos # (Auto) 0.4 (0.0-0.8) 10^3/u L Baso # (Auto) 0.1 (0.0-0.1) 10^3/u L Nucleated RBC % (a uto) 0 % Nucleated RBCs # 0.0 /100WBC PT 13.30 (10.5-13.3) SECO NDS INR 0.98 (0.8-1.2) D-Dimer 0.34 (0-0.59) ug/mIFE U Sodium 138 (136-145) mmol/L Potassium 4.4 (3.5-5.1) mmol/L Chloride 102 (98-107) mmol/L Carbon Dioxide 24 (22-29) mmol/L Anion Gap 16.4 (5-19) BUN 11 (6-20) mg/dL Creatinine 0.9 (0.7-1.2) mg/dL GFR Calculation 87.9 L (90-130) mL/min Glucose 233 H (65-115) mg/dL Calculated Osmolal ity 290 (285-295) mOsm/k g Lactic Acid (0.5-2.2) mmol/L Calcium 9.0 (8.5-10.5) mg/dL Magnesium 2.1 (1.7-2.3) mg/dL Total Bilirubin 1.3 H (0.15-1.2) mg/dL AST 16 (0-40) U/L ALT 22 (0-41) U/L Alkaline Phosphata se 107 (40-130) IU/L Troponin T Baselin e (0-15) ng/L Troponin T 120 Min [place] (0-15) ng/L Delta Troponin T (0-10) ABS# NT-Pro-B Natriuret Pep 73 (0-125) pg/mL Total Protein 7.1 (6.6-8.7) g/dL Albumin 4.4 (3.5-5.2) g/dL Globulin 2.7 (1.3-4.6) g/dL 04/30/20 04/30/20 04/30/20 Range/Units 04:40 04:40 06:27 WBC (4.0-10.0) 10^3/ uL RBC (4.1-5.3) 10^6/u L Hgb (11.7-16.6) g/dL Hct (42.0-52.0) % MCV (80-94) fL MCH (28.0-34.0) pg MCHC (30.0-36.0) g/dL RDW (12.1-15.1) % Plt Count (130-400) 10^3/c mm MPV (7.4-10.4) fL Neut % (Auto) % Lymph % (Auto) % Gonzales % (Auto) % Eos % (Auto) % Baso % (Auto) % Neut # (Auto) (1.8-7.7) 10^3/u L Lymph # (Auto) (0.8-4.8) 10^3/u L Gonzales # (Auto) (0.2-0.9) 10^3/u L Eos # (Auto) (0.0-0.8) 10^3/u L Baso # (Auto) (0.0-0.1) 10^3/u L Nucleated RBC % (a uto) % Nucleated RBCs # /100WBC PT (10.5-13.3) SECO NDS INR (0.8-1.2) D-Dimer (0-0.59) ug/mIFE U Sodium (136-145) mmol/L Potassium (3.5-5.1) mmol/L Chloride (98-107) mmol/L Carbon Dioxide (22-29) mmol/L Anion Gap (5-19) BUN (6-20) mg/dL Creatinine (0.7-1.2) mg/dL GFR Calculation (90-130) mL/min Glucose (65-115) mg/dL Calculated Osmolal ity (285-295) mOsm/k g Lactic Acid 2.3 H (0.5-2.2) mmol/L Calcium (8.5-10.5) mg/dL Magnesium (1.7-2.3) mg/dL Total Bilirubin (0.15-1.2) mg/dL AST (0-40) U/L ALT (0-41) U/L Alkaline Phosphata se (40-130) IU/L Troponin T Baselin e 11 (0-15) ng/L Troponin T 120 Min [place] 21.40 H (0-15) ng/L Delta Troponin T 10.40 H* (0-10) ABS# NT-Pro-B Natriuret Pep (0-125) pg/mL Total Protein (6.6-8.7) g/dL Albumin (3.5-5.2) g/dL Globulin (1.3-4.6) g/dL Discharge Plan Discharge Patient Disposition: Placed in Observation Admit Provider: Nancy Cisse Condition: Stable Referrals: Hosea Mendoza MD [Physician] - 1 month (You have a cardiology followup with Dr. Mendoza at [facility] on May 23 at 1:15pm.) Billie Hylton FNP [Nurse Practitioner] - 1 week (For follow up including labs) Tash Zimmerman DO [Primary Care Provider] - 4-7 days (You have a post hospital discharge follow up with Dr. Rizvi in her office on May 10 at 9:45am. ) Discharge Diet: Cardiac Discharge Activity: Increase activity as tolerated Patient Instructions: Furosemide (By mouth), Potassium Chloride (By mouth), Atorvastatin (By mouth), Hypertension, Heart Failure (GEN), Dyspnea (GEN), DASH Eating Plan (DC), CHF Stoplight Additional Instructions: Please follow-up with Billie Hylton in 7 days with blood pressure pulse and daily weight record. Please take extra Lasix if you gain more than 3 pound in 2 cons ecutive days. Please take less than 2 g of sodium in 24 hours. Discharge Date/Time: 04/30/20 09:20 Sign Out Sign Out Data: Patient Sign Out occurred on 04/30/20 at 05:53. Patient's care was discussed, and care was transferred from Jessica Tong to Brayden Gates DO. Sign Out Comment: Case turned over to Dr. Gates at change of shift. Last updated by Jessica Tong at 04/30/20 05:35 Coding Level of Care Code ED Tumbler Tender for Chg 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
[2020-04-30] MEDS: ipratropium-albuterol 3 mL Neb 9 ML INHALATION (05:02)
[2020-04-30 05:16] LABS: Basophils # 0.1 10^3/uL (0.0-0.1); Basophils % 0.7 %; Eosinophils # 0.4 10^3/uL (0.0-0.8); Eosinophils % 5.5 %; Hematocrit 46.8 % (42.0-52.0); Hemoglobin 15.5 g/dL (11.7-16.6); Lymphocytes # 1.6 10^3/uL (0.8-4.8); Lymphocytes % 21.6 %; Mean Corpuscular HGB Conc 33.1 g/dL (30.0-36.0); Mean Corpuscular Hemoglobin 28.6 pg (28.0-34.0); Mean Corpuscular Volume 86.3 fL (80-94); Mean Platelet Volume 9.6 fL (7.4-10.4); Monocytes # 0.7 10^3/uL (0.2-0.9); Monocytes % 9.2 %; Neutrophils # 4.54 10^3/uL (1.8-7.7); Neutrophils % 62.4 %; Nucleated Red Blood Cells % 0 %; Platelet Count 298 10^3/cmm (130-400); Red Blood Count 5.42 10^6/uL (4.1-5.3); Red Cell Distribution Width 12.6 % (12.1-15.1); White Blood Count 7.3 10^3/uL (4.0-10.0)
[2020-04-30 06:05] LABS: Troponin(5th) Baseline 11 ng/L (0-15)
[2020-04-30 06:10] LABS: Alanine Aminotransferase 22 U/L (0-41); Albumin Level 4.4 g/dL (3.5-5.2); Alkaline Phosphatase 107 IU/L (40-130); Anion Gap 16.4 (5-19); Aspartate Amino Transferase 16 U/L (0-40); Blood Urea Nitrogen 11 mg/dL (6-20); Carbon Dioxide 24 mmol/L (22-29); Chloride 102 mmol/L (98-107); Globulin 2.7 g/dL (1.3-4.6); Glomerular Filtration Rate 87.9 mL/min (90-130); Glucose 233 mg/dL (65-115); Magnesium 2.1 mg/dL (1.7-2.3); NT Pro B Type Natriuretic Pept 73 pg/mL (0-125); Osmolality Calculated 290 mOsm/kg (285-295); Potassium 4.4 mmol/L (3.5-5.1); Sodium 138 mmol/L (136-145); Total Bilirubin 1.3 mg/dL (0.15-1.2); Total Protein 7.1 g/dL (6.6-8.7)
[2020-04-30 06:20] LABS: Lactic Sepsis W/Reflex 2.3 mmol/L (0.5-2.2)
[2020-04-30 06:22] LABS: INR 0.98 (0.8-1.2)
--- NOTE | 2020-04-30 06:32 | ECG_ITS ---
[facility] Test Date: 2020-04-30 Pat Name: Andi Garcia Department: Room: 111 Gender: Male Behavioral Health Clinician: : 1965 Requested By: Jessica Rodríguez Order Number: [id number] Karen MD: Hosea Mendoza M.D. Measurements Intervals [place] Rate: 61 P: 47 RI: 183 QRS: 56 QRSD: 98 T: 60 QT: 405 QTc: 409 Interpretive Statements SINUS RHYTHM Compared to ECG 04/30/2020 04:48:16 No significant changes Electronically Signed On 04-30-2020 22:50:02 CDT by Hosea Mendoza M.D. [id number]
[2020-04-30 06:55] LABS: D Dimer 0.34 ug/mIFEU (0-0.59)
[2020-04-30 07:01] LABS: Reflex Lactate Order REFLEX LACTIC ORDERD
[2020-04-30] MEDS: nitroglycerin 1 gm/inch oint Pkt 0.5 INCH TOPICAL (08:29)
[2020-04-30] MEDS: enoxaparin 120 mg/0.8 mL Syringe 110 MG SUBCUT (08:31)
[2020-04-30] MEDS: aspirin 81 mg Chew Tablet 324 MG PO (08:31)
--- NOTE | 2020-04-30 10:32 | ECG_ITS ---
[facility] Test Date: 2020-04-30 Pat Name: Andi Garcia Department: Room: 111 Gender: Male Hospital Unit Clerk: : 1965 Requested By: Jessica Rodríguez Order Number: [id number] Jones MD: Hosea Mendoza M.D. Measurements Intervals [place] Rate: 64 P: 54 OR: 191 QRS: 58 QRSD: 107 T: 62 QT: 394 QTc: 409 Interpretive Statements SINUS RHYTHM WITH SINUS ARRHYTHMIA Compared to ECG 04/30/2020 06:29:15 No significant changes Electronically Signed On 04-30-2020 22:50:14 CDT by Hosea Mendoza M.D. [id number]
--- NOTE | 2020-04-30 11:09 | PM.HP ---
Providers/Chief Complaint Admitting Physician: Luz Marina Mccain MD Primary Care Provider: Tash Zimmerman DO Chief Complaint: sob History of Present Illness Andi Garcia JR is a 54 year old male with PMHx of Non-ischemic cardiomyopathy s/p pacemaker/AICD, HTN, Anxiety/depression; presents from home for evaluation of shortness of breath both at rest and with exertion that started yesterday. Episode spontaneously resolved but then recurred earlier this morning prompting him to come to the ER for evaluation. He has a known history of nonischemic cardiomyopathy and follows up with Dr. Welsh as his seating captain. He denies andi chest pain though reports some nausea with episodes of shortness of breath. He also denies fever/chills, lower extremity swelling, recent travel, contact with known COVID-19 positive individuals, has no history of lung disease, is not oxygen dependent at baseline. Also denies abdominal pain, changes to his urination and bowel habits. He reports taking his medications earlier this morning prior to coming to the hospital. He has not had his AICD fire recently and states that he sent some information of remotely to the company that monitors his device with no noted abnormalities. He lives independently but has a home health aide that comes 3 times a week to help him at home. Denies any recent medication changes other than addition of Trintellix secondary to history of anxiety and depression. Work-up indicates normal white count at 7.3, normal hemoglobin at 15.5, normal electrolytes and renal function, hyperglycemia with a blood sugar of 233, lactic acid of 2.3, BNP of 73, d-dimer of 0.34, troponins with noted delta of 10.4 after 2 hours. He has had 3 EKGs with no significant changes or acute ischemic changes. Review of medical record reveals prior cardiac work-up in 05/2019 including echo as noted below as well as a nuclear stress test that was somewhat indicative of some ischemic changes in LAD territory. As such we have requested cardiology evaluation. He was noted to be hypertensive initially the blood pressure has normalized. He has been admitted for further evaluation including cardiology evaluation. He has half an inch of Nitropaste, has also received full dose aspirin as well as a therapeutic dose of Lovenox. Review of Systems Const: Denies: fever(s), chills or diaphoresis Eyes: Denies: change in vision ENMT: Denies: odynophagia Card: Reports: dyspnea on exertion and orthopnea; Denies: chest pain, palpitations, edema, swelling of feet/ankles, lightheadedness, syncope or pre-syncope Resp: Denies: dyspnea, productive cough or non-productive cough GI: Denies: abdominal pain, nausea, vomiting, hematemesis, diarrhea, constipation or hematochezia : Reports: urinary frequency; Denies: dysuria Musc: Denies: back pain Skin/Breast: Denies: rash Neuro: Denies: numbness in extremities or weakness in extremities Psych: Denies: anxiety Medications/Allergies Home Medications Medication Instructions Recorded Confirmed Last Taken Type clonazepam 1 mg tablet 1 mg PO TID PRN tab 02/24/20 04/30/20 04/30/20 History lisinopril 2.5 mg tablet 2.5 mg PO DAILY 02/24/20 04/30/20 04/29/20 History sotalol 120 mg tablet 120 mg PO BID 02/24/20 04/30/20 04/29/20 History magnesium oxide 500 mg capsule 500 mg PO DAILY 02/25/20 04/30/20 04/29/20 History Trintellix 5 mg PO BID 04/30/20 04/30/20 04/29/20 History aspirin 81 mg PO DAILY 04/30/20 04/30/20 04/29/20 History oxycodone 15 mg PO Q8H PRN 04/30/20 04/30/20 04/30/20 History Allergies Allergy/AdvReac Type Severity Reaction Status Date / Time diazepam Allergy Unknown Unknown Verified 04/20/20 09:03 PFSH Acute PFSH: Medical History (Updated 04/30/20 @ 11:35 by Luz Marina Mccain MD) ASHD (arteriosclerotic heart disease) CHF (congestive heart failure) GERD (gastroesophageal reflux disease) Hyperlipidemia Hypertension IBS (irritable bowel syndrome) Nonischemic cardiomyopathy Surgical History S/P appendectomy S/P cholecystectomy S/P ICD (internal cardiac defibrillator) procedure Family History Mother Cancer Social History (Updated 04/30/20 @ 11:30 by Luz Marina Mccain MD) Smoking and tobacco status: never smoked Alcohol intake: former Substance/Drug Use: never Lives independently: Yes Vitals/I&O/Wt Last Vital Signs Temp 97.8 F 04/30/20 04:19 Pulse 71 04/30/20 09:20 Resp 11 L 04/30/20 09:20 BP 116/66 04/30/20 09:20 Pulse Ox 97 04/30/20 09:20 Weight last 48 hrs Weight 113.398 kg Physical Exam Const: COMMON NORMALS: no acute distress, patient oriented x3 and alert GENERAL APPEARANCE: cooperative and comfortable NUTRITIONAL APPEARANCE: obese ORIENTATION/CONSCIOUSNESS: Yes awake HENMT: COMMON NORMALS: normocephalic, atraumatic, hearing grossly normal bilaterally and moist oral mucous membranes HEAD & SCALP: normocephalic and atraumatic Eye: COMMON NORMALS: Equal, round and reactive pupils present, EOMs intact bilaterally and conjunctivae normal CONJUNCTIVA: Yes conjunctivae normal PUPIL: Yes Equal, round and reactive pupils present Neck/C-Spine: COMMON NORMALS: full ROM GENERAL: Yes normal visual inspection and Yes trachea midline Chest: CHEST: Yes Pacemaker present Resp: COMMON NORMALS: normal respiratory effort, No retractions, No use of accessory muscles and clear to auscultation bilaterally EFFORT & INSPECTION: Yes able to speak in complete sentences, Yes symmetric chest movement and No tachypneic AUSCULTATION: clear to auscultation bilaterally OTHER: -on RA Cardio: COMMON NORMALS: regular rate, regular rhythm, S1 normal heart sound present, S2 normal heart sound present and No murmurs present (Cardio) RATE: regular rate RHYTHM: regular rhythm HEART SOUNDS: S1 normal heart sound present and S2 normal heart sound present GI: COMMON NORMALS: Normal to inspection, nondistended, normoactive bowel sounds present, Soft to palpation and non-tender INSPECTION: Yes central obesity PALPATION: Yes Soft to palpation Extremity: COMMON NORMALS: normal to inspection, full ROM and no clubbing, cyanosis or edema; negative for no pedal edema Neuro: COMMON NORMALS: patient oriented x3, moves all extremities, no focal motor deficits, no sensory deficits noted and gait normal Psych: COMMON NORMALS: mental status grossly normal, Normal thought process present, cooperative, normal affect and speech normal SPEECH: Yes normal speech THOUGHT PROCESS: Normal thought process present Skin: COMMON NORMALS: no rashes or lesions noted, no jaundice, no petechiae and no mottling GENERAL SKIN EXAM: no rashes or lesions noted Data : 04/30/20 04:40 04/30/20 04:40 A&P Assessment and plan (1) Elevated troponin: -noted troponins with 2-hr delta of 10.40, 6hr troponin pending -serial ECGs, so far, no acute ischemic changes -telemetry monitoring -has known hx of non-ischemic cardiomyopathy s/p pacemaker/AICD -had prior nuclear stress testing done in 05/2019 showing small sized reversible perfusion abnormality of mild severity of apical inferior and apical lateral doherty that may represent small area of ischemia in LAD territory -Cardiology evaluation requested -Monitor vital signs -received dose of therapeutic lovenox, ASA 325 mg in ED -resume ASA -Echo (05/2019): EF=61%, G1DD, trace MR, trace to mild TR, trace MD -not on statin, order lipid panel, A1c, TSH -PAULINA -CXR unremarkable Status: Acute (2) Nonischemic cardiomyopathy: -f/u with Dr. Welsh -has pacemaker and AICD, no recent firing Status: Chronic (3) CHF (congestive heart failure): -no acute exacerbation currently -Echo (05/2019): EF=61%, G1DD, trace MR, trace to mild TR, trace MD -not on chronic diuretics Status: Chronic Qualifiers: Heart failure type: diastolic Heart failure chronicity: chronic Qualified Code(s): I50.32 - Chronic diastolic (congestive) heart failure (4) Shortness of breath: -seems to have resolved currently -CXR unremarkable -no leukocytosis, afebrile, not requiring supplemental oxygen, no close contacts with COVID-19 positive individuals, no recent travel, no hx of lung disease -D-dimer-0.34, BNP-73 -lactic acid-2.3; unclear significance but low suspicion for infection Status: Acute (5) Hypertension: -initially hypertensive, BP improved -resume oral antihypertensives -monitor vital signs Status: Chronic Qualifiers: Hypertension type: essential hypertension Qualified Code(s): I10 - Essential (primary) hypertension (6) Hyperlipidemia: -not on statin, order lipid panel Status: Chronic Qualifiers: Hyperlipidemia type: unspecified Qualified Code(s): E78.5 - Hyperlipidemia, unspecified (7) Depression: Status: Chronic Qualifiers: Depression Type: unspecified Qualified Code(s): F32.9 - Major depressive disorder, single episode, unspecified (8) Anxiety: -f/u at [facility] -resume Clonazepam Status: Chronic Additional A&P Information -Morbid obesity: BMI-33 kg/m2 -noted hyperglycemia, check A1c -cardiac diet -DVT ppx not needed; already received dose of therapeutic lovenox -Dispo: home -Code status: FULL code Attestations Medical Necessity Statement*: Andi Mckeon Radha ROJAS's hospital stay will be less than 2 midnights for management of NSTEMI with noted prior abnormal stress test, pending cardiology evaluation. Time Spent in Patient Care: Greater than 35 minutes (>than 50% of time spent in counselling and/or direct pt care on unit). 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
[2020-04-30 11:27] LABS: Lactic Acid level (Lactate) 1.7 mmol/L (0.5-2.2); Troponin 5 6HR 9.92 ng/L (0-15)
[2020-04-30 11:35] LABS: Troponin 5 6HR Delta -1.08 ng/L (0-12)
--- NOTE | 2020-04-30 16:36 | PM.CONSULT ---
Providers/Reason For Consult Consulting Physican/Specialty*: Cardiology Reason for Consult*: Abnormal cardiac markers Atypical chest pressure CHF exacerbation Attending Physician: Luz Marina Mccain MD Primary Care Provider: Tash Zimmerman DO History of Present Illness History of Present Illness Andi Garcia JR is a 54 year old male past medical history significant for nonischemic cardiomyopathy proven by coronary angiogram in 2006, CHF, anxiety, LV dysfunction status post AICD, chronic atrial fibrillation in sinus rhythm on sotalol and high anxiety presented with shortness of breath and atypical chest pressure. Fifth edition troponin has slight indeterminate bump otherwise no significant EKG changes was admitted for ruling out acute coronary syndrome and CHF exacerbation. According to patient for the past few months he has gained more than 30 pounds. He admits to orthopnea and difficulty in breathing upon walking occasionally feels chest pressure. He denies otherwise fever chills cough sputum. He denies anginal typical chest pain. In near past he had a negative stress test. Review of Systems Const: Denies: fever(s), chills, body aches, fatigue, malaise or diaphoresis Eyes: Denies: change in vision, blurry vision, blind spots, photophobia, eye discharge or eye redness ENMT: Denies: throat pain, odynophagia, hoarseness, swelling of lips/tongue, oral sores, ear or mastoid pain, ear discharge, change in hearing or nasal discharge Card: Reports: dyspnea on exertion and orthopnea; Denies: chest pain, palpitations, irregular heart rhythm, edema, swelling of feet/ankles, lightheadedness, syncope or pre-syncope Resp: Denies: dyspnea, productive cough, non-productive cough, wheezing, hemoptysis or chest congestion GI: Denies: abdominal pain, nausea, vomiting, hematemesis, coffee ground emesis, heartburn, diarrhea, constipation, GI cramping, hematochezia or melena : Reports: urinary frequency; Denies: flank pain, dysuria, urinary urgency or hematuria Musc: Denies: neck pain, back pain, extremity pain, extremity swelling, joint pain, joint swelling, joint redness, joint warmth or joint stiffness Skin/Breast: Denies: rash, pruritus, erythema, skin tenderness or jaundice Neuro: Denies: headache(s), numbness in extremities, weakness in extremities, sensory changes, lack of coordination, difficulty walking, dizziness, vertigo, confusion, Slurred speech present or seizure-like activity Psych: Denies: anxiety Jacques/Lymph: Denies: easy bruising, easy bleeding, petechiae, purpura or enlarged lymph nodes All/Imm: Denies: urticaria, throat swelling, tongue swelling, facial swelling or acute wheezing Meds/Allergies Home Medications and Allergies Home Medications Medication Instructions Recorded Confirmed Last Taken Type clonazepam 1 mg tablet 1 mg PO TID PRN tab 02/24/20 04/30/20 04/30/20 History lisinopril 2.5 mg tablet 2.5 mg PO DAILY 02/24/20 04/30/20 04/29/20 History sotalol 120 mg tablet 120 mg PO BID 02/24/20 04/30/20 04/29/20 History magnesium oxide 500 mg capsule 500 mg PO DAILY 02/25/20 04/30/20 04/29/20 History Trintellix 5 mg PO BID 04/30/20 04/30/20 04/29/20 History aspirin 81 mg PO DAILY 04/30/20 04/30/20 04/29/20 History oxycodone 15 mg PO Q8H PRN 04/30/20 04/30/20 04/30/20 History Allergies Allergy/AdvReac Type Severity Reaction Status Date / Time diazepam Allergy Unknown Unknown Verified 04/20/20 09:03 PFSH Acute PFSH: Medical History ASHD (arteriosclerotic heart disease) CHF (congestive heart failure) GERD (gastroesophageal reflux disease) Hyperlipidemia Hypertension IBS (irritable bowel syndrome) Nonischemic cardiomyopathy Surgical History S/P appendectomy S/P cholecystectomy S/P ICD (internal cardiac defibrillator) procedure Family History Mother Cancer Social History Smoking and tobacco status: never smoked Alcohol intake: former Substance/Drug Use: never Lives independently: Yes Dietary Habits: Current diet type/program: regular Caffeine: Yes Vitals/I&O/Wt Last Vital Signs Temp 97.8 F 04/30/20 04:19 Pulse 71 04/30/20 09:20 Resp 11 L 04/30/20 09:20 BP 116/66 04/30/20 09:20 Pulse Ox 97 04/30/20 09:20 Weight last 48 hrs Weight 250 lb Physical Exam Narrative: EXAM NARRATIVE: GENERAL: Patient is alert, awake and oriented x3. NECK: No jugular vein distension. HEENT: No cyanosis. No icterus. No pallor. HEART: Regular S1 and S2. No murmur, rub or gallop. LUNGS: Reduced breath sound to auscultate bilaterally. ABDOMEN: Soft, nontender and nondistended. Positive bowel sounds. No guarding, rebound or tenderness. CENTRAL NERVOUS SYSTEM: Grossly nonfocal. EXTREMITIES: Lower extremities with 1+ edema bilaterally. Pulses palpable in the lower extremities, both dorsalis pedis and posterior tibial. A&P Assessment and plan (1) CHF (congestive heart failure): Patient is in decompensated systolic heart failure. He is volume overloaded with weight gain. I will check TSH and diurese him with IV Lasix 40 mg twice a day. Potassium will also be replenished. Isosorbide mononitrate will be added. Goal is diuresis 1 L negative Status: Chronic Qualifiers: Heart failure type: diastolic Heart failure chronicity: chronic Qualified Code(s): I50.32 - Chronic diastolic (congestive) heart failure (2) Nonischemic cardiomyopathy: Status: Chronic (3) Atrial fibrillation: Currently in sinus rhythm on sotalol. Continue current regimen Status: Acute Qualifiers: Atrial fibrillation type: longstanding persistent Qualified Code(s): I48.11 - Longstanding persistent atrial fibrillation (4) Elevated troponin: Most likely secondary to CHF exacerbation. We will monitor it. He does not appear to be ischemic at the moment. Status: Acute Consult Attestations Medical Necessity Statement: I am expecting his stay to cross more than 2 midnights Coding Level of Care Code New Pt Acute Microfilm Processor for g Fwd Patient Type New History Detailed Exam Detailed Medical Decision Making Moderate Complexity Diagnoses CHF (congestive heart failure) I50.32 Heart failure type: diastolic Heart failure chronicity: chronic Nonischemic cardiomyopathy I42.8 Atrial fibrillation I48.11 Atrial fibrillation type: longstanding persistent Elevated troponin R79.89
[2020-04-30] MEDS: potassium chloride ER 10 mEq Tablet 20 MEQ PO ×2 (17:16→20:33)
[2020-04-30] MEDS: FUROsemide 10 mg/mL SDV 4mL 40 MG IVP (17:16)
[2020-04-30] MEDS: magnesium oxide 400 mg tablet PO (17:17)
[2020-04-30] MEDS: isosorbide mononitrate 20 mg Tablet PO (17:17)
[2020-04-30 17:41] LABS: Thyroid Stimulating Hormone 1.88 uIU/mL (0.27-4.20)
[2020-04-30] MEDS: sotalol 80 mg Tablet 120 MG PO (20:32)
[2020-05-01] VITALS (8 sets, daily range): BP systolic 97–124; BP diastolic 58–81; PULSE 61–75; RESP 12–15; TEMP 36.4–36.9; O2SAT 92–95
[2020-05-01] MEDS: CLONazepam 1 mg Tablet PO ×3 (00:22→17:05)
[2020-05-01] MEDS: acetaminophen 325 mg Tablet 650 MG PO ×3 (01:03→17:05)
[2020-05-01] MEDS: FUROsemide 10 mg/mL SDV 4mL 40 MG IVP ×2 (04:35→16:55)
[2020-05-01 06:03] LABS: Basophils % 0.4 %; Eosinophils # 0.4 10^3/uL (0.0-0.8); Eosinophils % 3.8 %; Hematocrit 45.6 % (42.0-52.0); Hemoglobin 15.1 g/dL (11.7-16.6); Lymphocytes # 2.1 10^3/uL (0.8-4.8); Lymphocytes % 22.3 %; Mean Corpuscular HGB Conc 33.1 g/dL (30.0-36.0); Mean Corpuscular Hemoglobin 28.5 pg (28.0-34.0); Mean Corpuscular Volume 86.2 fL (80-94); Mean Platelet Volume 9.6 fL (7.4-10.4); Monocytes % 10.3 %; Neutrophils # 5.95 10^3/uL (1.8-7.7); Neutrophils % 62.9 %; Nucleated Red Blood Cells % 0 %; Platelet Count 283 10^3/cmm (130-400); Red Blood Count 5.29 10^6/uL (4.1-5.3); Red Cell Distribution Width 12.3 % (12.1-15.1); White Blood Count 9.5 10^3/uL (4.0-10.0)
[2020-05-01 06:19] LABS: Alanine Aminotransferase 20 U/L (0-41); Albumin Level 4.7 g/dL (3.5-5.2); Alkaline Phosphatase 99 IU/L (40-130); Anion Gap 15.2 (5-19); Aspartate Amino Transferase 18 U/L (0-40); Blood Urea Nitrogen 17 mg/dL (6-20); Calcium 9.5 mg/dL (8.5-10.5); Carbon Dioxide 28 mmol/L (22-29); Chloride 96 mmol/L (98-107); Creatinine Clr Calc Pharmacy 112.6328; Globulin 2.4 g/dL (1.3-4.6); Glomerular Filtration Rate 77.9 mL/min (90-130); Glucose 160 mg/dL (65-115); Osmolality Calculated 280 mOsm/kg (285-295); Potassium 4.2 mmol/L (3.5-5.1); Sodium 135 mmol/L (136-145); Total Bilirubin 1.7 mg/dL (0.15-1.2); Total Protein 7.1 g/dL (6.6-8.7)
[2020-05-01 06:21] LABS: Chol HDL Ratio 4.34 mg/dL (1.0-5.00); Cholesterol 178 mg/dL (0-200); HDL Cholesterol 41 mg/dL (60-100); LDL Cholesterol Calculated 101 mg/dL (50-129); LDL HDL Ratio 2.46 RATIO (0.00-3.22); Triglycerides 178 mg/dL (0-150)
[2020-05-01 06:55] LABS: Estmated Average Glucose 157; Hemoglobin A1C 7.1 % (4.0-6.0)
[2020-05-01 07:01] LABS: Thyroid Stimulating Hormone 2.84 uIU/mL (0.27-4.20)
[2020-05-01] MEDS: sotalol 80 mg Tablet 120 MG PO ×2 (09:21→20:35)
[2020-05-01] MEDS: aspirin 81 mg EC Tablet PO (09:22)
[2020-05-01] MEDS: potassium chloride ER 10 mEq Tablet 20 MEQ PO ×2 (09:23→16:56)
[2020-05-01] MEDS: isosorbide mononitrate 20 mg Tablet PO (09:23)
[2020-05-01] MEDS: magnesium oxide 400 mg tablet PO ×2 (09:23→16:56)
--- NOTE | 2020-05-01 09:52 | PM.PN ---
Subjective Subjective: Interval history: Had 1800 mL urine output overnight for net negative balance of 1.5 L. Hemodynamically stable, afebrile, on RA. Encouraged to ambulate which he did in the afternoon and did not quite feel right. He has had a headache so will discontinue Imdur. Case discussed with Dr. Mendoza. Patient requesting stool softener. Overall does feel better though not quite at his baseline. Medications: Reviewed: Yes Medication Review Details: Active Medications Generic Name Dose Route Start Last Admin Trade Name Freq PRN Reason Stop Dose Admin Acetaminophen 650 mg 05/01/20 00:54 05/01/20 01:03 Tylenol PO 650 mg Q4H PRN Administration MILD PAIN OR INCR EASE TEMP Aspirin 81 mg 05/01/20 09:00 05/01/20 09:22 Aspirin Ec PO 81 mg DAILY LEON Administration Clonazepam 1 mg 04/30/20 11:22 05/01/20 00:22 Klonopin PO 1 mg TID PRN Administration ANXIETY Furosemide 40 mg 04/30/20 16:40 05/01/20 04:35 Lasix IVP 40 mg Q12H LEON Administration Isosorbide Mononit rate 20 mg 04/30/20 18:00 05/01/20 09:23 Ismo PO 20 mg BID LEON Administration Magnesium Oxide 400 mg 04/30/20 18:00 05/01/20 09:23 Magox PO 400 mg BID LEON Administration Potassium Chloride 20 meq 04/30/20 16:45 05/01/20 09:23 Klor-Con 10 PO 20 meq BID LEON Administration Sotalol HCl 120 mg 04/30/20 21:00 05/01/20 09:21 Betapace PO 120 mg BID@0900,2100 LEON Administration diazepam Allergy (Unknown, Verified 04/20/20 09:03) Unknown Vitals/I&O/Wt Last Vital Signs Temp 97.6 F 05/01/20 08:00 Pulse 74 05/01/20 08:00 Resp 14 05/01/20 08:00 BP 106/58 05/01/20 08:00 Pulse Ox 93 05/01/20 08:00 04/30/20 05/01/20 05/01/20 22:59 06:59 14:59 Intake Total 360 / 720 500 / 1220 240 / 240 Output Total 1450 / 1450 1050 / 2500 450 / 450 Balance -1090 / -730 -550 / -1280 -210 / -210 Weight last 48 hrs Weight 115.893 kg Weight 113.398 kg Physical Exam Const: COMMON NORMALS: no acute distress, patient oriented x3 and alert GENERAL APPEARANCE: cooperative and comfortable NUTRITIONAL APPEARANCE: obese ORIENTATION/CONSCIOUSNESS: Yes awake HENMT: COMMON NORMALS: normocephalic, atraumatic, hearing grossly normal bilaterally and moist oral mucous membranes HEAD & SCALP: normocephalic and atraumatic Eye: COMMON NORMALS: Equal, round and reactive pupils present, EOMs intact bilaterally and conjunctivae normal CONJUNCTIVA: Yes conjunctivae normal PUPIL: Yes Equal, round and reactive pupils present Neck/C-Spine: COMMON NORMALS: full ROM GENERAL: Yes normal visual inspection and Yes trachea midline Chest: CHEST: Yes Pacemaker present Resp: COMMON NORMALS: normal respiratory effort, No retractions, No use of accessory muscles and clear to auscultation bilaterally EFFORT & INSPECTION: Yes able to speak in complete sentences, Yes symmetric chest movement and No tachypneic AUSCULTATION: clear to auscultation bilaterally OTHER: -on RA Cardio: COMMON NORMALS: regular rate, regular rhythm, S1 normal heart sound present, S2 normal heart sound present and No murmurs present (Cardio) RATE: regular rate RHYTHM: regular rhythm HEART SOUNDS: S1 normal heart sound present and S2 normal heart sound present GI: COMMON NORMALS: Normal to inspection, nondistended, normoactive bowel sounds present, Soft to palpation and non-tender INSPECTION: Yes central obesity PALPATION: Yes Soft to palpation Extremity: COMMON NORMALS: normal to inspection, full ROM and no clubbing, cyanosis or edema; negative for no pedal edema Neuro: COMMON NORMALS: patient oriented x3, moves all extremities, no focal motor deficits, no sensory deficits noted and gait normal SENSORIUM/ORIENTATION: Yes alert Psych: COMMON NORMALS: mental status grossly normal, Normal thought process present, cooperative, normal affect and speech normal SPEECH: Yes normal speech THOUGHT PROCESS: Normal thought process present Skin: COMMON NORMALS: no rashes or lesions noted, no jaundice, no petechiae and no mottling GENERAL SKIN EXAM: no rashes or lesions noted Data : 05/01/20 05:35 05/01/20 05:35 A&P Assessment and plan (1) Elevated troponin: -noted troponins with 2-hr delta of 10.40, 6hr troponin lower with no significant delta -serial ECGs, so far, no acute ischemic changes -telemetry monitoring -has known hx of non-ischemic cardiomyopathy s/p pacemaker/AICD -had prior nuclear stress testing done in 05/2019 showing small sized reversible perfusion abnormality of mild severity of apical inferior and apical lateral doherty that may represent small area of ischemia in LAD territory -Cardiology evaluation by Dr. Mendoza appreciated; IV diuresis -VSS; continue to monitor -received dose of therapeutic lovenox, ASA 325 mg in ED -on ASA -Echo (05/2019): EF=61%, G1DD, trace MR, trace to mild TR, trace CT -noted lipid panel, A1c, TSH; start on statin -PAULINA -CXR unremarkable -unable to tolerate Imdur, persistent DUNN Status: Acute (2) CHF (congestive heart failure): -acute exacerbation, BNP-73 -Echo (05/2019): EF=61%, G1DD, trace MR, trace to mild TR, trace CT -not on chronic diuretics; on IV Lasix -daily weights, monitor Is & Os; total negative fluid balance of 1.5 L Status: Chronic Qualifiers: Heart failure chronicity: acute on chronic Heart failure type: diastolic Qualified Code(s): I50.33 - Acute on chronic diastolic (congestive) heart failure (3) Nonischemic cardiomyopathy: -f/u with Dr. Welsh -has pacemaker and AICD, no recent firing Status: Chronic (4) Shortness of breath: -seems to have resolved currently -CXR unremarkable -no leukocytosis, afebrile, not requiring supplemental oxygen, no close contacts with COVID-19 positive individuals, no recent travel, no hx of lung disease -D-dimer-0.34, BNP-73 -lactic acid-2.3; unclear significance but low suspicion for infection; decreased to 1.7 Status: Acute (5) Hypertension: -initially hypertensive, BP well controlled -on oral antihypertensives -continue to monitor vital signs Status: Chronic Qualifiers: Hypertension type: essential hypertension Qualified Code(s): I10 - Essential (primary) hypertension (6) Hyperlipidemia: -start on statin, noted lipid panel Status: Chronic Qualifiers: Hyperlipidemia type: unspecified Qualified Code(s): E78.5 - Hyperlipidemia, unspecified (7) Depression: Status: Chronic Qualifiers: Depression Type: unspecified Qualified Code(s): F32.9 - Major depressive disorder, single episode, unspecified (8) Anxiety: -f/u at [facility] -on Clonazepam Status: Chronic Additional A&P Information -Morbid obesity: BMI-34 kg/m2 -noted hyperglycemia, A1c-7.1; accuchecks, ISS -bowel regimen -cardiac consistent carb diet -DVT ppx not needed; already received dose of therapeutic lovenox -Dispo: home -Code status: FULL code Attestations Medical Necessity Statement*: Patient requires hospitalization for continued diuresis. Time Spent in Patient Care: 16 - 35 minutes (>than 50% of time spent in counselling and/or direct pt care on unit). 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
[2020-05-01 12:02] LABS: Glucose Point of Care 192 mg/dL (70-110)
--- NOTE | 2020-05-01 14:39 | NUR.SHIFT ---
pt ambulated length of [place] (150 ft) several times.denies sob,dizziness.vss. o2 sat 93% on room air.tolerated well.
--- NOTE | 2020-05-01 15:08 | PC.NURSE ---
pt came up to desk and stated he does not feel ready to go home yet.states after i walked in [place] i got sob and a little dizzy.dr beltre and dr foreman notified.
[2020-05-01] MEDS: magnesium hydroxide 30 mL UDC PO (15:29)
[2020-05-01 16:48] LABS: Glucose Point of Care 158 mg/dL (70-110)
--- NOTE | 2020-05-01 19:16 | PC.NURSE ---
Patient does not have any complaints at this time. Patient is currently resting in bed watching TV. Patient has call light within reach. Will monitor.
[2020-05-01 20:26] LABS: Glucose Point of Care 189 mg/dL (70-110)
[2020-05-01] MEDS: atorvastatin 40 mg Tablet PO (20:35)
--- NOTE | 2020-05-01 20:41 | PC.NURSE ---
Dr. Patel notified that the patient is asking for his 15 mg of oxycodone that he takes at home for back pain.
--- NOTE | 2020-05-01 21:34 | PC.NURSE ---
Patient is currently resting with eyes closed. Will continue to monitor and reassess pain.
[2020-05-01] MEDS: oxyCODONE 5 mg IR Tab/Cap 15 MG PO (23:29)
[2020-05-02] MEDS: CLONazepam 1 mg Tablet PO ×2 (01:20→08:22)
[2020-05-02 03:19] VITALS: BP 101/60; PULSE 62; RESP 18; TEMP 36.4; O2SAT 94
[2020-05-02 05:02] LABS: Blood Urea Nitrogen 15 mg/dL (6-20); Calcium 9.1 mg/dL (8.5-10.5); Carbon Dioxide 32 mmol/L (22-29); Chloride 95 mmol/L (98-107); Creatinine Clr Calc Pharmacy 112.6328; Glomerular Filtration Rate 77.9 mL/min (90-130); Glucose 174 mg/dL (65-115); Osmolality Calculated 282 mOsm/kg (285-295); Sodium 136 mmol/L (136-145)
[2020-05-02] MEDS: FUROsemide 10 mg/mL SDV 4mL 40 MG IVP (05:39)
[2020-05-02 06:17] LABS: Glucose Point of Care 156 mg/dL (70-110)
[2020-05-02 07:22] VITALS: BP 118/75; PULSE 63; RESP 18; TEMP 36.8; O2SAT 93
[2020-05-02] MEDS: potassium chloride ER 10 mEq Tablet 20 MEQ PO (08:22)
[2020-05-02] MEDS: magnesium oxide 400 mg tablet PO (08:22)
[2020-05-02] MEDS: sotalol 80 mg Tablet 120 MG PO (08:22)
[2020-05-02] MEDS: polyethylene glycol 3350 Pkt 17 gm PO (08:22)
[2020-05-02] MEDS: aspirin 81 mg EC Tablet PO (08:22)
--- NOTE | 2020-05-02 08:48 | P.DS_ITS ---
Discharge Providers Date of Admission: 04/30/20 08:29 Date of Discharge: May 02, 2020 Attending Provider at Admission: Nancy Cisse MD Attending Provider at Discharge: Luz Marina Mccain MD Consults: Cardiology, Dr. Mendoza Primary Care Provider: Tash Zimmerman DO Diagnoses at Discharge Discharge Diagnosis (1) Elevated troponin: Status: Acute Problem details: -noted troponins with 2-hr delta of 10.40, 6hr troponin lower with no significant delta -serial ECGs, so far, no acute ischemic changes -telemetry monitoring -has known hx of non-ischemic cardiomyopathy s/p pacemaker/AICD -had prior nuclear stress testing done in 05/2019 showing small sized reversible perfusion abnormality of mild severity of apical inferior and apical lateral doherty that may represent small area of ischemia in LAD territory -Cardiology evaluation by Dr. Mendoza appreciated; IV diuresis -VSS; continue to monitor -received dose of therapeutic lovenox, ASA 325 mg in ED -on ASA -Echo (05/2019): EF=61%, G1DD, trace MR, trace to mild TR, trace IN -noted lipid panel, A1c, TSH; start on statin -PAULINA -CXR unremarkable -unable to tolerate Imdur, persistent DUNN (2) CHF (congestive heart failure): Status: Acute Problem details: -acute exacerbation, BNP-73 -Echo (05/2019): EF=61%, G1DD, trace MR, trace to mild TR, trace IN -not on chronic diuretics; on IV Lasix -daily weights, monitor Is & Os; total negative fluid balance of 3.2 L Qualifiers: Heart failure chronicity: acute on chronic Heart failure type: diego stolic Qualified Code(s): I50.33 - Acute on chronic diastolic (congestive) heart failure (3) Nonischemic cardiomyopathy: Status: Chronic Problem details: -f/u with Dr. Welsh -has pacemaker and AICD, no recent firing (4) Shortness of breath: Status: Acute Problem details: -seems to have resolved currently -CXR unremarkable -no leukocytosis, afebrile, not requiring supplemental oxygen, no close contacts with COVID-19 positive individuals, no recent travel, no hx of lung disease -D-dimer-0.34, BNP-73 -lactic acid-2.3; unclear significance but low suspicion for infection; decr eased to 1.7 (5) Hypertension: Status: Chronic Problem details: -initially hypertensive, BP well controlled -on oral antihypertensives -continue to monitor vital signs Qualifiers: Hypertension type: essential hypertension Qualified Code(s): I10 - Essential (primary) hypertension (6) Hyperlipidemia: Status: Chronic Problem details: -started on statin, noted lipid panel Qualifiers: Hyperlipidemia type: unspecified Qualified Code(s): E78.5 - Hyperlipidemia, unspecified (7) Depression: Status: Chronic Qualifiers: Depression Type: unspecified Qualified Code(s): F32.9 - Major depressive disorder, single episode, unspecified (8) Anxiety: Status: Chronic Problem details: -f/u at [facility] -on Clonazepam Other Information Additional DC diagnoses/information: -Morbid obesity: BMI-34 kg/m2 -noted hyperglycemia, A1c-7.1; accuchecks, ISS Reason for Visit Reason for Visit: sob Hospital Course Hospital Course: Patient was admitted to the cardiac stepdown unit and placed on telemetry monitoring. Secondary to noted troponin elevation with prior equivocal nuclear stress test done in 05/2019 cardiology was formally consulted. Patient was started on IV diuresis per Dr. Mendoza's recommendations and so far has diuresed 3.2 L with noted symptomatic improvement. He has been hemodynamically stable, afebrile and maintained on room air. Renal function has been stable, he has had no leukocytosis. He had had a previous echo done in 05/2019 showing an ejection fraction of 61% with grade 1 diastolic dysfunction. He was started on a low-dose of Imdur which was unable to tolerate due to persistent headache, so this was discontinued. He will require follow-up with his primary care physician as well as with cardiology. He is advised to seek medical attention immediately should he have worsening symptoms. Discharge Summary: -Patient to follow up with primary care physician within 1 week -Patient to follow up with Billie Hylton NP at [facility] in [address] Mendoza in 1 month Physical Exam Const: COMMON NORMALS: no acute distress, patient oriented x3 and alert GENERAL APPEARANCE: cooperative and comfortable NUTRITIONAL APPEARANCE: obese ORIENTATION/CONSCIOUSNESS: Yes awake HENMT: COMMON NORMALS: normocephalic, atraumatic, hearing grossly normal bilaterally and moist oral mucous membranes HEAD & SCALP: normocephalic and atraumatic Eye: COMMON NORMALS: Equal, round and reactive pupils present, EOMs intact bilaterally and conjunctivae normal CONJUNCTIVA: Yes conjunctivae normal PUPIL: Yes Equal, round and reactive pupils present Neck/C-Spine: COMMON NORMALS: full ROM GENERAL: Yes normal visual inspection and Yes trachea midline Chest: CHEST: Yes Pacemaker present Resp: COMMON NORMALS: normal respiratory effort, No retractions, No use of accessory muscles and clear to auscultation bilaterally EFFORT & INSPECTION: Yes able to speak in complete sentences, Yes symmetric chest movement and No tachypneic AUSCULTATION: clear to auscultation bilaterally OTHER: -on RA Cardio: COMMON NORMALS: regular rate, regular rhythm, S1 normal heart sound present, S2 normal heart sound present and No murmurs present (Cardio) RATE: regular rate RHYTHM: regular rhythm HEART SOUNDS: S1 normal heart sound present and S2 normal heart sound present GI: COMMON NORMALS: Normal to inspection, nondistended, normoactive bowel sounds present, Soft to palpation and non-tender INSPECTION: Yes central obesity PALPATION: Yes Soft to palpation Extremity: COMMON NORMALS: normal to inspection, full ROM and no clubbing, cyanosis or edema; negative for no pedal edema Neuro: COMMON NORMALS: patient oriented x3, moves all extremities, no focal motor deficits, no sensory deficits noted and gait normal SENSORIUM/ORIENTATION: Yes alert Psych: COMMON NORMALS: mental status grossly normal, Normal thought process present, cooperative, normal affect and speech normal SPEECH: Yes normal speech THOUGHT PROCESS: Normal thought process present Skin: COMMON NORMALS: no rashes or lesions noted, no jaundice, no petechiae and no mottling GENERAL SKIN EXAM: no rashes or lesions noted Discharge Data Data Completed and Pending: Completed Studies During Hospitalization Category Date Time Status XR chest 1V pao ble [id number] Stat Exams 04/30/20 04:31 Completed Labs from last 24 hours 05/02/20 05/02/20 05/01/20 06:10 03:46 20:21 Sodium 136 Potassium 4.0 Chloride 95 L Carbon Dioxide 32 H Anion Gap 13.0 BUN 15 Creatinine 1.0 GFR Calculation 77.9 L Glucose 174 H POC Glucose 156 189 Calculated Osmolal ity 282 L Calcium 9.1 05/01/20 05/01/20 16:43 11:36 Sodium Potassium Chloride Carbon Dioxide Anion Gap BUN Creatinine GFR Calculation Glucose POC Glucose 158 192 Calculated Osmolal ity Calcium Vitals: Last Vital Signs Temp 98.3 F 05/02/20 07:22 Pulse 63 05/02/20 07:22 Resp 18 05/02/20 07:22 BP 118/75 05/02/20 07:22 Pulse Ox 93 05/02/20 07:22 Discharge Plan Discharge Patient Disposition: Home, Self-Care Condition: Stable Prescriptions: New atorvastatin 40 mg Tablet 40 mg PO BEDTIME 30 Days Qty: 30 RF: 0 Lasix 20 mg tablet 20 mg PO QAM Qty: 30 RF: 5 potassium chloride 10 mEq capsule, extended release 10 meq PO DAILY Qty: 30 RF: 4 Continued clonazepam [Klonopin] 1 mg tablet 1 mg PO TID PRN (Reason: Anxiety) RF: 0 lisinopril 2.5 mg tablet 2.5 mg PO DAILY RF: 0 sotalol [Betapace] 120 mg tablet 120 mg PO BID RF: 0 magnesium oxide 500 mg capsule 500 mg PO DAILY RF: 0 Trintellix 5 mg tablet 5 mg PO BID RF: 0 aspirin 81 mg Tablet,Delayed Release (Dr/Ec) 81 mg PO DAILY RF: 0 oxycodone 15 mg Tablet 15 mg PO Q8H PRN (Reason: Pain) RF: 0 Discharge Orders: Discharge Order (Routine); Ordered 05/02/20 Ordered By: Hosea Mendoza Referrals: Hosea Mendoza MD [Physician] - 1 month (You have a cardiology followup with Dr. Mendoza at [facility] on May 23 at 1:15pm.) Billie Hylton FNP [Nurse Practitioner] - 1 week (For follow up including labs) Tash Zimmerman DO [Primary Care Provider] - 4-7 days (You have a post hospital discharge follow up with Dr. Rizvi in her office on May 10 at 9:45am. ) Discharge Diet: Cardiac Discharge Activity: Increase activity as tolerated Activity Restrictions/Additional Instructions: Please follow-up with Billie Hylton in 7 days with blood pressure pulse and daily weight record. Please take extra Lasix if you gain more than 3 pound in 2 consecutive days. Please take less than 2 g of sodium in 24 hours. Discharge Attestations Time Spent in Discharge Care*: greater than 30 min Specific Discharge Activities: Specific discharge activities: educating patient, discussing with pcp/other providers, documenting/other paperwork and evaluating patient/reviewing data Status at Discharge: Cognitive status at discharge: cognitively intact , Behavioral status at discharge: cooperative and independent in ADL's , Functional status at discharge: independent ambulation Overall status at discharge: patient is progressing back to baseline Quality Metrics Clinical Quality Measures During this hospital stay, did patient experience: None Coding Level of Care Code Acute Family Lawyer for [facility] 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 Diagnoses Elevated troponin R79.89 CHF (congestive heart failure) I50.33 Heart failure chronicity: acute on chronic Heart failure type: diastolic Nonischemic cardiomyopathy I42.8 Shortness of breath R06.02 Hypertension I10 Hypertension type: essential hypertension Hyperlipidemia E78.5 Hyperlipidemia type: unspecified Depression F32.9 Depression Type: unspecified Anxiety F41.9
[2020-05-02] MEDS: sennosides-docusate Tablet 2 TAB PO (08:58)
[2020-05-02 11:21] VITALS: BP 102/61; PULSE 68; RESP 16; TEMP 36.8; O2SAT 94
[2020-05-02 11:53] LABS: Glucose Point of Care 187 mg/dL (70-110)
--- NOTE | 2020-05-02 12:08 | P.PN_ITS ---
Subjective Subjective: Interval history: Today feeling better he has walk around without any difficulty. Denies PND orthopnea slept well. He thinks he can go home. Vitals/I&O/Wt Last Vital Signs Temp 98.2 F 05/02/20 11:21 Pulse 68 05/02/20 11:21 Resp 16 05/02/20 11:21 BP 102/61 05/02/20 11:21 Pulse Ox 94 05/02/20 11:21 05/01/20 05/02/20 05/02/20 22:59 06:59 14:59 Intake Total 240 / 720 600 / 1320 480 / 480 Output Total 1350 / 2100 1000 / 3100 700 / 700 Balance -1110 / -1380 -400 / -1780 -220 / -220 Weight last 48 hrs Weight 255 lb 8 oz Physical Exam Narrative: EXAM NARRATIVE: GENERAL: Patient is alert, awake and oriented x3. NECK: No jugular vein distension. HEENT: No cyanosis. No icterus. No pallor. HEART: Regular S1 and S2. No murmur, rub or gallop. LUNGS: Clear to auscultate bilaterally. ABDOMEN: Soft, nontender and nondistended. Positive bowel sounds. No guarding, rebound or tenderness. CENTRAL NERVOUS SYSTEM: Grossly nonfocal. EXTREMITIES: Lower extremities without edema bilaterally. Data : 05/01/20 05:35 05/02/20 03:46 A&P Assessment and plan (1) Atrial fibrillation: Patient remains in sinus rhythm. Continue current regimen Status: Acute Qualifiers: Atrial fibrillation type: longstanding persistent Qualified Code(s): I48.11 - Longstanding persistent atrial fibrillation (2) Shortness of breath: Better and improved after diuresis. Continue optimize medicine Status: Acute (3) Elevated troponin: Nonspecific and secondary to CHF. Type II. Continue current regimen Status: Acute (4) Anxiety: Continue as per medicine recommended Status: Chronic (5) CHF (congestive heart failure): Well compensated now. We will switch him to p.o. diuretics. Patient has been advised to keep log of blood pressure pulse daily weight and take extra water pill if you gain more than 3 pounds in 2 consecutive days. He has been advised to reduce salt intake to less than 2 g a day. Heart failure education has been given Status: Acute Qualifiers: Heart failure type: diastolic Heart failure chronicity: acute on chronic Qualified Code(s): I50.33 - Acute on chronic diastolic (congestive) heart failure (6) Nonischemic cardiomyopathy: Stable. Continue current Status: Chronic Attestations Medical Necessity Statement*: Patient can be discharged home today Coding Level of Care Code Established Pt Acute Business Instructor for Chg Fwd Patient Type Established History Expanded Problem Focused Exam Expanded Problem Focused Medical Decision Making Moderate Complexity Diagnoses Atrial fibrillation I48.11 Atrial fibrillation type: longstanding persistent Shortness of breath R06.02 Elevated troponin R79.89 Anxiety F41.9 CHF (congestive heart failure) I50.33 Heart failure type: diastolic Heart failure chronicity: acute on chronic Nonischemic cardiomyopathy I42.8
[2020-05-02 12:14] VITALS: RESP 16
[2020-05-02] MEDS: oxyCODONE 5 mg IR Tab/Cap 15 MG PO (12:14)
[2020-05-02 12:51] VITALS: BP 102/61; PULSE 68; RESP 16; O2SAT 94
--- NOTE | 2020-05-02 13:19 | PC.NURSE ---
Patient left [facility] with all personal belongings at 1316 via w/c to ER exit for discharge. Patient was given discharge instructions, new medications, medication information, and patient verbalized understanding. Patient's IV was removed, catheter tip intact, patient tolerated well.
== END 2020-05-02 13:16 | disposition home or self-care (01) | DRG 293 ==
LOC: ER 07:51 → CSU 09:01
PROVIDERS: Emergency Medicine; Family Medicine; Internal Medicine Cardiovascular Disease; Admitting Provider Student in an Organized Health Care Education/Training Program; PCP Family Medicine; Visit Provider Family Medicine
DX: I11.0 Hypertensive heart disease with heart failure (principal); I50.33 Acute on chronic diastolic (congestive) heart failure; F41.8 Other specified anxiety disorders; E66.01 Morbid (severe) obesity due to excess calories; Z68.34 Body mass index [BMI] 34.0-34.9, adult; E78.5 Hyperlipidemia, unspecified; I42.8 Other cardiomyopathies; Z95.810 Presence of automatic (implantable) cardiac defibrillator; Z79.82 Long term (current) use of aspirin; K21.9 Gastro-esophageal reflux disease without esophagitis; R73.9 Hyperglycemia, unspecified
CPT/HCPCS: 12345; 36415; 36416; 71045; 80048; 80053; 80061; 82962; 83036; 83605; 83735; 83880; 84443; 84484; 85025; 85378; 85610; 93005; 94640; 96372; 96375; 99283; J1650; J1815; J1940; J2405

== ENCOUNTER 2020-08-30 20:13 | Inpatient (IN) | payer MEDICARE, MEDICAID, SELFPAY ==
[2020-08-30] VITALS (7 sets, daily range): BP systolic 109–161; BP diastolic 66–134; PULSE 71–109; RESP 16–18; TEMP 36.5–36.7; O2SAT 96–98; BMI 33.0
--- NOTE | 2020-08-30 20:34 | ECG_ITS ---
[facility] Test Date: 2020-08-30 Pat Name: Andi Garcia Department: Room: Gender: Male Eap Counselor: : 1965 Requested By: Shree Duffy I Order Number: [id number] Jones MD: Vita Saenz M.D. Measurements Intervals [place] Rate: 87 P: 61 GA: 165 QRS: 64 QRSD: 113 T: 62 QT: 363 QTc: 437 Interpretive Statements SINUS RHYTHM POSSIBLE LEFT ATRIAL ENLARGEMENT [-0.1mV P WAVE IN V1/V2] MODERATE INTRAVENTRICULAR CONDUCTION DELAY [110+ ms QRS DURATION] Compared to ECG 04/30/2020 11:03:49 Intraventricular conduction delay now present Sinus arrhythmia no longer present Electronically Signed On 08-30-2020 21:35:28 FRENCH DRAWER by Vita Saenz M.D. [id number]
[2020-08-30 20:47] LABS: Basophils % 0.3 %; Eosinophils # 0.1 10^3/uL (0.0-0.8); Eosinophils % 0.5 %; Hematocrit 46.9 % (42.0-52.0); Hemoglobin 15.8 g/dL (11.7-16.6); Lymphocytes # 1.6 10^3/uL (0.8-4.8); Lymphocytes % 13.8 %; Mean Corpuscular HGB Conc 33.7 g/dL (30.0-36.0); Mean Corpuscular Hemoglobin 28.8 pg (28.0-34.0); Mean Corpuscular Volume 85.4 fL (80-94); Mean Platelet Volume 9.4 fL (7.4-10.4); Monocytes # 0.7 10^3/uL (0.2-0.9); Monocytes % 6.3 %; Neutrophils # 9.26 10^3/uL (1.8-7.7); Neutrophils % 78.8 %; Nucleated Red Blood Cells % 0 %; Platelet Count 303 10^3/cmm (130-400); Red Blood Count 5.49 10^6/uL (4.1-5.3); Red Cell Distribution Width 12.3 % (12.1-15.1); White Blood Count 11.8 10^3/uL (4.0-10.0)
[2020-08-30] MEDS: oxyCODONE 5 mg IR Tab/Cap 20 MG PO (21:15)
[2020-08-30] MEDS: ondansetron 2 mg/ML SDV 2 mL 4 MG IVP (21:16)
[2020-08-30] MEDS: sodium chloride 0.9% 1,000 ML 999 ML IV (21:18)
[2020-08-30 21:25] LABS: Alanine Aminotransferase 20 U/L (0-41); Albumin Level 4.7 g/dL (3.5-5.2); Alkaline Phosphatase 117 IU/L (40-130); Anion Gap 16.7 (5-19); Aspartate Amino Transferase 18 U/L (0-40); Blood Urea Nitrogen 8 mg/dL (6-20); Calcium 9.9 mg/dL (8.5-10.5); Carbon Dioxide 23 mmol/L (22-29); Chloride 102 mmol/L (98-107); Globulin 2.5 g/dL (1.3-4.6); Glomerular Filtration Rate 87.9 mL/min (90-130); Glucose 256 mg/dL (65-115); Osmolality Calculated 293 mOsm/kg (285-295); Potassium 3.7 mmol/L (3.5-5.1); Sodium 138 mmol/L (136-145); Thyroid Stimulating Hormone 0.67 uIU/mL (0.27-4.20); Total Bilirubin 1.5 mg/dL (0.15-1.2); Total Protein 7.2 g/dL (6.6-8.7)
[2020-08-30 21:30] LABS: Acetaminophen < 5.0 ug/mL (10-30); Alcohol Level < 10 mg/dL (0-10); Salicylate < 0.3 mg/dL (3-10)
[2020-08-30 21:59] LABS: Add Urine Microscopic? NO
[2020-08-30] MEDS: LORazepam 1 mg Tablet PO (21:59)
[2020-08-30 22:16] LABS: Amphetamines Screen Urine Negative (Negative); Barbiturates Screen Urine Negative (Negative); Benzodiazepines Screen Urine Negative (Negative); Cocaine Screen Urine Negative (Negative); Opiate Screen Urine Positive (Negative); PCP Screen Urine Negative (Negative); THC Screen Urine Negative (Negative)
[2020-08-30 22:27] LABS: Bilirubin Urine Neg (Negative); Blood Urine Neg (Negative); Glucose Urine UA 4+ (Normal); Ketones Urine Negative (Negative); Leukocyte Esterase Urine Negative (Negative); Nitrate Urine Negative (Negative); Protein Urine Neg (Negative); Specific Gravity, Urine 1.025 (1.005-1.030); Urine Appearance Clear (CLEAR); Urine Color Yellow (Yellow); Urobilinogen Urine Norm (Negative)
--- NOTE | 2020-08-30 22:56 | W.ED.PSYCH ---
HPI - Psych General: Chief Complaint: Psychiatric Symptoms Stated Complaint: venecia HERNANDEZ Time Seen by Provider: 08/30/20 20:25 Source: patient Mode of arrival: ambulatory Limitations: no limitations History of Present Illness: HPI Narrative: 54-year-old gentleman who presents to the emergency department with suicidal ideation. He says he will jump off for for the building. He said he will have already killed himself however he has no means to do it quickly. He voiced frustration with his primary care provider and says he does not see the point in continuing to live if his life is being controlled by another person (referring to his primary care provider). The patient has had multiple orthopedic issues and multiple surgeries as well as a defibrillator. He says he has been shocked 33 times and he thinks that is somehow responsible for his reduced pain threshold. He is pretty depressed on Saturday fact that he is unable to live without pain medication. He had been on oxycodone for at least 8 years and he says that his primary care provider switched him to hydromorphone and was given 90 pills. He states that he hydromorphone is not working for him and only causes him to vomit. He said that since it is not working he flushed it down the toilet. He has called his primary care provider to complain of body hydromorphone and she has refilled his oxycodone, however he is unable to fill it until Saturday. He states that he is withdrawing now and his symptoms are restlessness, nausea vomiting, diarrhea. He states he is unable to keep anything down. He feels hopeless and states there is no point to living. complaint: suicidal ideation Duration: constant and getting worse History of same: No Relieving factors: none Exacerbating factors: none Associated psychiatric symptoms: depression Associated symptoms: Reports suicidal ideation; Deny delusions, depression, homicidal ideation or racing thoughts Treatments prior to arrival: none If self harm: admits thoughts of self harm and has plan Details of plan: He plans to jump off the fifth beatriz of a building Review of Systems General: Reports: 10 or more systems reviewed and unremarkable except in HPI and below Const: Denies: fever(s), chills or body aches Eyes: Denies: change in vision or blurry vision ENMT: Denies: throat pain, enlarged tonsils, odynophagia, hoarseness, mouth pain or swelling of lips/tongue Card: Denies: palpitations, irregular heart rhythm, edema or swelling of feet/ankles Resp: Denies: dyspnea, productive cough or non-productive cough GI: Denies: abdominal pain, nausea or vomiting : Denies: flank pain, dysuria, urinary frequency, urinary urgency or urinary hesitancy Musc: Denies: neck pain, back pain or extremity swelling Skin/Breast: Denies: rash, pruritus or erythema Neuro: Denies: headache(s), numbness in extremities or weakness in extremities Psych: Reports: suicidal ideation; Denies: depression or homicidal ideation Endo: Denies: polyuria, polydipsia or tired all the time PFSH ED PFSH: Medical History (Updated 08/30/20 @ 23:11 by Shree Duffy MD, [facility] – [place] Anxiety -f/u at [facility] -on Clonazepam ASHD (arteriosclerotic heart disease) Atrial fibrillation Remains in sinus rhythm. Continue current regimen CHF (congestive heart failure) -acute exacerbation, BNP-73 -Echo (05/2019): EF=61%, G1DD, trace MR, trace to mild TR, trace AZ -not on chronic diuretics; on IV Lasix -daily weights, monitor Is & Os; total negative fluid balance of 3.2 L Depression Elevated troponin -noted troponins with 2-hr delta of 10.40, 6hr troponin lower with no significant delta -serial ECGs, so far, no acute ischemic changes -telemetry monitoring -has known hx of non-ischemic cardiomyopathy s/p pacemaker/AICD -had prior nuclear stress testing done in 05/2019 showing small sized reversible perfusion abnormality of mild severity of apical inferior and apical lateral doherty that may represent small area of ischemia in LAD territory -Cardiology evaluation by Dr. Mendoza appreciated; IV diuresis -VSS; continue to monitor -received dose of therapeutic lovenox, ASA 325 mg in ED -on ASA -Echo (05/2019): EF=61%, G1DD, trace MR, trace to mild TR, trace AZ -noted lipid panel, A1c, TSH; start on statin -PAULINA -CXR unremarkable -unable to tolerate Imdur, persistent DUNN GERD (gastroesophageal reflux disease) Hyperlipidemia -started on statin, noted lipid panel Hypertension -initially hypertensive, BP well controlled -on oral antihypertensives -continue to monitor vital signs IBS (irritable bowel syndrome) Nonischemic cardiomyopathy -f/u with Dr. Welsh -has pacemaker and AICD, no recent firing Surgical History S/P appendectomy S/P cholecystectomy S/P ICD (internal cardiac defibrillator) procedure Family History Mother Cancer Social History Smoking and tobacco status: never smoked Alcohol intake: former Lives independently: Yes Physical Exam Const: COMMON NORMALS: no acute distress, average body habitus, patient oriented x3, no limitations, healthy appearing, alert and well nourished GENERAL APPEARANCE: well kempt HENMT: COMMON NORMALS: normocephalic, atraumatic and moist oral mucous membranes HEAD & SCALP: normocephalic and atraumatic Eye: COMMON NORMALS: Equal, round and reactive pupils present, EOMs intact bilaterally, conjunctivae normal and no scleral icterus CONJUNCTIVA: Yes conjunctivae normal PUPIL: Yes Equal, round and reactive pupils present Neck/C-Spine: COMMON NORMALS: no meningeal signs and no JVD Resp: COMMON NORMALS: normal respiratory effort, No retractions, No use of accessory muscles, clear to auscultation bilaterally and percussion normal AUSCULTATION: clear to auscultation bilaterally PERCUSSION: percussion normal Cardio: COMMON NORMALS: no JVD, regular rate, regular rhythm, S1 normal heart sound present, S2 normal heart sound present, No gallops present (Cardio), No clicks present (Cardio), No murmurs present (Cardio), No rub (Cardio) and Peripheral pulses 2+ throughout RATE: regular rate RHYTHM: regular rhythm HEART SOUNDS: S1 normal heart sound present and S2 normal heart sound present PERIPHERAL PULSES: Peripheral pulses 2+ throughout GI: COMMON NORMALS: Normal to inspection, nondistended, normoactive bowel sounds present, Soft to palpation, non-tender, No hepatosplenomegaly present, no masses and no bruits PALPATION: Yes Soft to palpation and Yes No hepatosplenomegaly present Extremity: COMMON NORMALS: normal to inspection, full ROM, capillary refill normal, no calf tenderness and no pedal edema Neuro: COMMON NORMALS: patient oriented x3 SENSORIUM/ORIENTATION: Yes alert MENINGEAL SIGNS: Yes no meningeal signs Psych: COMMON NORMALS: cooperative APPEARANCE: Yes well kempt ATTITUDE: Yes calm ACTIVITY/MOTOR BEHAVIOR: Yes appropriate eye contact MOOD & AFFECT: Yes depressed mood THOUGHT CONTENT: Yes Suicidality present, No Homicidality present, No delusions and No Hallucination(s) present Skin: COMMON NORMALS: no rashes or lesions noted, no wounds, turgor normal, no jaundice, no petechiae and no mottling GENERAL SKIN EXAM: no rashes or lesions noted and turgor normal MDM - Psych MDM Narrative: Medical decision making narrative: 54-year-old patient with suicidal ideation. He also has a plan. He is medically cleared and admitted to the neuropsychiatric unit for further evaluation and management Medical Records: Attestation: I reviewed the patient's medical records. Lab Data: Attestation: I reviewed the patient's lab results. Labs: Lab Results 08/30/20 08/30/20 08/30/20 Range/Units 19:57 19:57 20:28 WBC 11.8 H (4.0-10.0) 10^3/ uL RBC 5.49 H (4.1-5.3) 10^6/u L Hgb 15.8 (11.7-16.6) g/dL Hct 46.9 (42.0-52.0) % MCV 85.4 (80-94) fL MCH 28.8 (28.0-34.0) pg MCHC 33.7 (30.0-36.0) g/dL RDW 12.3 (12.1-15.1) % Plt Count 303 (130-400) 10^3/c mm MPV 9.4 (7.4-10.4) fL Neut % (Auto) 78.8 % Lymph % (Auto) 13.8 % Whiteside % (Auto) 6.3 % Eos % (Auto) 0.5 % Baso % (Auto) 0.3 % Neut # (Auto) 9.26 H (1.8-7.7) 10^3/u L Lymph # (Auto) 1.6 (0.8-4.8) 10^3/u L Whiteside # (Auto) 0.7 (0.2-0.9) 10^3/u L Eos # (Auto) 0.1 (0.0-0.8) 10^3/u L Baso # (Auto) 0.0 (0.0-0.1) 10^3/u L Nucleated RBC % (a uto) 0 % Nucleated RBCs # 0.0 /100WBC Sodium (136-145) mmol/L Potassium (3.5-5.1) mmol/L Chloride (98-107) mmol/L Carbon Dioxide (22-29) mmol/L Anion Gap (5-19) BUN (6-20) mg/dL Creatinine (0.7-1.2) mg/dL GFR Calculation (90-130) mL/min Glucose (65-115) mg/dL Calculated Osmolal ity (285-295) mOsm/k g Calcium (8.5-10.5) mg/dL Total Bilirubin (0.15-1.2) mg/dL AST (0-40) U/L ALT (0-41) U/L Alkaline Phosphata se (40-130) IU/L Total Protein (6.6-8.7) g/dL Albumin (3.5-5.2) g/dL Globulin (1.3-4.6) g/dL TSH (0.27-4.20) uIU/ mL Urine Color Yellow (Yellow) Urine Appearance Clear (CLEAR) Urine pH 5.0 (5-7) Ur Specific Gravit y 1.025 (1.005-1.030) Urine Protein Neg (Negative) Urine Glucose (UA) 4+ H (Normal) Urine Ketones Negative (Negative) Urine Blood Neg (Negative) Urine Nitrate Negative (Negative) Urine Bilirubin Neg (Negative) Urine Urobilinogen Norm (Negative) mg/dL Ur Leukocyte Sandi ase Negative (Negative) Salicylates (3-10) mg/dL Urine Opiates Scre en Positive H (Negative) ng/mL Acetaminophen (10-30) ug/mL Ur Barbiturates Sc reen Negative (Negative) ng/mL Ur Phencyclidine S crn Negative (Negative) ng/mL Ur Amphetamines Sc reen Negative (Negative) ng/mL U Benzodiazepines Scrn Negative (Negative) ng/mL Urine Cocaine Scre en Negative (Negative) ng/mL U Marijuana (THC) Screen Negative (Negative) ng/mL Ethyl Alcohol (0-10) mg/dL 08/30/20 Range/Units 20:28 WBC (4.0-10.0) 10^3/ uL RBC (4.1-5.3) 10^6/u L Hgb (11.7-16.6) g/dL Hct (42.0-52.0) % MCV (80-94) fL MCH (28.0-34.0) pg MCHC (30.0-36.0) g/dL RDW (12.1-15.1) % Plt Count (130-400) 10^3/c mm MPV (7.4-10.4) fL Neut % (Auto) % Lymph % (Auto) % Whiteside % (Auto) % Eos % (Auto) % Baso % (Auto) % Neut # (Auto) (1.8-7.7) 10^3/u L Lymph # (Auto) (0.8-4.8) 10^3/u L Whiteside # (Auto) (0.2-0.9) 10^3/u L Eos # (Auto) (0.0-0.8) 10^3/u L Baso # (Auto) (0.0-0.1) 10^3/u L Nucleated RBC % (a uto) % Nucleated RBCs # /100WBC Sodium 138 (136-145) mmol/L Potassium 3.7 (3.5-5.1) mmol/L Chloride 102 (98-107) mmol/L Carbon Dioxide 23 (22-29) mmol/L Anion Gap 16.7 (5-19) BUN 8 (6-20) mg/dL Creatinine 0.9 (0.7-1.2) mg/dL GFR Calculation 87.9 L (90-130) mL/min Glucose 256 H (65-115) mg/dL Calculated Osmolal ity 293 (285-295) mOsm/k g Calcium 9.9 (8.5-10.5) mg/dL Total Bilirubin 1.5 H (0.15-1.2) mg/dL AST 18 (0-40) U/L ALT 20 (0-41) U/L Alkaline Phosphata se 117 (40-130) IU/L Total Protein 7.2 (6.6-8.7) g/dL Albumin 4.7 (3.5-5.2) g/dL Globulin 2.5 (1.3-4.6) g/dL TSH 0.67 (0.27-4.20) uIU/ mL Urine Color (Yellow) Urine Appearance (CLEAR) Urine pH (5-7) Ur Specific Gravit y (1.005-1.030) Urine Protein (Negative) Urine Glucose (UA) (Normal) Urine Ketones (Negative) Urine Blood (Negative) Urine Nitrate (Negative) Urine Bilirubin (Negative) Urine Urobilinogen (Negative) mg/dL Ur Leukocyte Sandi ase (Negative) Salicylates < 0.3 L (3-10) mg/dL Urine Opiates Scre en (Negative) ng/mL Acetaminophen < 5.0 L (10-30) ug/mL Ur Barbiturates Sc reen (Negative) ng/mL Ur Phencyclidine S crn (Negative) ng/mL Ur Amphetamines Sc reen (Negative) ng/mL U Benzodiazepines Scrn (Negative) ng/mL Urine Cocaine Scre en (Negative) ng/mL U Marijuana (THC) Screen (Negative) ng/mL Ethyl Alcohol < 10 (0-10) mg/dL EKG Data^: EKG 1: Attestation: I personally reviewed and interpreted this EKG as follows: EKG interpretation date: 08/30/20 EKG interpretation time: 20:35 Prior EKG tracings: not available for review Interpretation: Normal sinus rhythm. Heart rate 87 bpm. Intraventricular conduction delay. No ST changes. Discharge Plan Discharge Patient Disposition: Admitted As Inpatient Admit Provider: Nikhil Duckworth Clinical Impression: Suicidal ideation, Opioid withdrawal Condition: Stable Coding Level of Care Code ED Data Quality Consultant for Suad Hicks
--- NOTE | 2020-08-30 23:01 | PC.NURSE ---
pt transferred to [facility] for SI.
[2020-08-31] MEDS: hyDROXYzine 25 mg Capsule 50 MG PO (00:06)
[2020-08-31] MEDS: trazodone 50 mg Tablet PO (00:06)
[2020-08-31 05:36] VITALS: RESP 16
[2020-08-31] MEDS: oxyCODONE 5 mg IR Tab/Cap 20 MG PO ×2 (05:36→12:30)
[2020-08-31 06:00] VITALS: BP 105/70; PULSE 106; RESP 18; TEMP 36.7; O2SAT 95
[2020-08-31] MEDS: FUROsemide 20 mg Tablet PO (06:43)
[2020-08-31] MEDS: potassium chloride ER 10 mEq Tablet PO (08:10)
[2020-08-31] MEDS: sotalol 80 mg Tablet 120 MG PO ×3 (08:10→21:08)
[2020-08-31 12:30] VITALS: RESP 18
[2020-08-31] MEDS: CLONazepam 1 mg Tablet PO ×2 (12:30→21:03)
--- NOTE | 2020-08-31 12:31 | PC.NURSE ---
Addendum entered by Georgia Krueger LPN 08/31/20 16:37: prn klonopin effective no further c/o anxiety Original Note: PRN KLONOPIN 1 MG GIVEN PO PER PT C/O ANXIETY
[2020-08-31 13:14] VITALS: BP 101/68; PULSE 76; RESP 18; TEMP 36.9; O2SAT 96
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
--- NOTE | 2020-08-31 19:44 | NUR.SHIFT ---
PM Assessment Pt reports back pain at a 10 on a 0-10 pain scale. He is requesting his pain medication for his chronic pain condition. No pain meds are ordered for him at this time. Dr Duckworth is working with the patients physician Dr Casey regarding the oxycodone pt wants. He filled his oxycodone on the August 05 and it is not time to refill them according to pharmacy. Pt is visibly shaking, is irritable but compliant, and having a hard time sitting up out of bed. Med nurse notified. Will continue to monitor the patient.
[2020-08-31 20:23] VITALS: BP 116/61; PULSE 79; RESP 18; TEMP 36.7; O2SAT 94
[2020-08-31 21:10] VITALS: RESP 18
[2020-08-31] MEDS: oxyCODONE 5 mg IR Tab/Cap 15 MG PO (21:10)
[2020-09-01 06:00] VITALS: BP 103/60; PULSE 70; RESP 18; TEMP 36.8; O2SAT 95
[2020-09-01] MEDS: FUROsemide 20 mg Tablet PO (06:06)
[2020-09-01 07:53] VITALS: RESP 20
[2020-09-01] MEDS: oxyCODONE 5 mg IR Tab/Cap 15 MG PO (07:53)
[2020-09-01] MEDS: sotalol 80 mg Tablet 120 MG PO (07:53)
[2020-09-01] MEDS: potassium chloride ER 10 mEq Tablet PO (07:54)
[2020-09-01] MEDS: CLONazepam 1 mg Tablet PO (08:12)
--- NOTE | 2020-09-01 09:20 | PC.NURSE ---
PATIENT UPSET THIS MORNING WITH DEMURRAGE AGENT, REPORTING HES NOT GETTING GETTING HIS MEDICATIONS THE WAY HE WANTS IT, AND THAT HES JUST READY TO LEAVE. PATIENT APPEARS ANGRY AND IS RAISING HIS VOICE. SPOKE WITH PATIENT ABOUT HIS MEDS AND THAT I WOULD SPEAK TO THE PHYSICIAN ABOUT HIS CONCERNS. PATIENT APOLOGIZED. WILL CON TO MONITOR,SUPPORT AND REDIRECT NEEDED
--- NOTE | 2020-09-01 14:25 | PC.NURSE ---
AMA Patient asked for his Klonopin and Oxycodone. This nurse instructed that it was not time yet for the medications and that he could get them again at 1600. Patient then stormed into hallway, walking towards the door and ripped off scrub top. Patient then went to exit door and stated he would get out of here one way or another. Patient behavior escalating, becoming verbally aggressive towards staff. This nurse attempted to inform patient that this would be leaving against medical advice and attempt to educate on need to stay further was made. Security called. Dr. Duckworth called and notified as well. Patient signed AMA paperwork, however, refused to fill out AMA risk assessment form. Patient then left with all belongings.
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
== END 2020-09-01 14:30 | disposition left against medical advice (07) | DRG 894 ==
LOC: ER 20:34 → NP 22:41
PROVIDERS: Admitting Provider Psychiatry & Neurology Psychiatry; Emergency Provider Family Medicine; PCP Family Medicine; Visit Provider Psychiatry & Neurology Psychiatry
DX: F11.23 Opioid dependence with withdrawal (principal); R45.851 Suicidal ideations; I42.8 Other cardiomyopathies; T40.2X5A Adverse effect of other opioids, initial encounter; F32.9 Major depressive disorder, single episode, unspecified; Z95.810 Presence of automatic (implantable) cardiac defibrillator; I11.0 Hypertensive heart disease with heart failure; I50.9 Heart failure, unspecified; F41.9 Anxiety disorder, unspecified; I25.10 Atherosclerotic heart disease of native coronary artery without angina pectoris; I48.91 Unspecified atrial fibrillation; K21.9 Gastro-esophageal reflux disease without esophagitis; E78.5 Hyperlipidemia, unspecified; Z53.29 Procedure and treatment not carried out because of patient's decision for other reasons
CPT/HCPCS: 12345; 80053; 80306; 80307; 81003; 84443; 85025; 93005; 99284; J2405; J7030

== ENCOUNTER 2020-09-03 05:06 | Emergency (ER) | payer MEDICARE, MEDICAID, SELFPAY ==
[2020-09-03 05:26] VITALS: BP 107/78; PULSE 79; RESP 16; TEMP 36.7; O2SAT 95; BMI 33.0
[2020-09-03 06:07] VITALS: BP 146/70; PULSE 75; RESP 16; O2SAT 95
--- NOTE | 2020-09-03 06:19 | W.ED.GENADLT ---
HPI - General Adult General: Chief complaint: General Medical Stated complaint: Withdrawl symptoms/hydromorphon Time Seen by Provider: 09/03/20 05:57 Source: patient Mode of arrival: ambulatory Limitations: no limitations History of Present Illness: HPI narrative: Andi is a very nice 54-year-old male who comes in complaining of withdrawal symptoms. He states he is withdrawing from opiates. He had been taking oxycodone for quite some time but his doctor elected to change him to hydromorphone tablets instead. That was done at the first of this month but he states that he began to have hallucinations and the medicine did not take care of his pain. Patient claims on the of this month he flushed the pills down the toilet. He then later had problems and came into the neuropsychiatric unit for what sounds like continued hallucinations. He states he got the pain medicine he needed there to ultimately they decided to stop it this made him mad and aggravated and he left. When asked plainly the patient adamantly denies any homicidal or suicidal ideation at this time. He is not having any further hallucinations. The patient states he needs something to help him get through until Saturday when he can cook pickled meat his new prescription of oxycodone as he cannot take the withdrawal symptoms at this time. Associated symptoms: Reports malaise and nausea; Deny chest pain, confusion, dyspnea, headache(s), rash, palpitations, syncope or vomiting Review of Systems Const: Reports: body aches, fatigue and malaise Eyes: Denies: change in vision, blurry vision, photophobia, eye discomfort, eye discharge, eye redness or yellow eyes ENMT: Denies: throat pain, odynophagia, hoarseness, swelling of lips/tongue, ear or mastoid pain, ear discharge, change in hearing or nasal discharge Card: Denies: chest pain, palpitations, irregular heart rhythm, edema, lightheadedness, syncope, pre-syncope, dyspnea on exertion or orthopnea Resp: Denies: dyspnea, productive cough, non-productive cough, wheezing, hemoptysis or chest congestion GI: Reports: nausea; Denies: abdominal pain, vomiting, hematemesis, coffee ground emesis, heartburn, diarrhea, constipation, GI cramping, hematochezia or melena : Denies: flank pain, dysuria, urinary frequency, urinary urgency or hematuria Musc: Denies: neck pain, back pain, extremity pain, extremity swelling, joint pain, joint swelling, joint redness, joint warmth or joint stiffness Skin/Breast: Denies: rash, pruritus, erythema, skin pain or skin tenderness Neuro: Denies: headache(s), numbness in extremities, weakness in extremities, sensory changes, lack of coordination, difficulty walking, dizziness, vertigo, confusion, Slurred speech present or seizure-like activity Psych: Reports: anxiety Jacques/Lymph: Denies: easy bruising, easy bleeding, petechiae, purpura or enlarged lymph nodes All/Imm: Denies: urticaria, throat swelling, tongue swelling, facial swelling or acute wheezing PFSH ED PFSH: Medical History Anxiety -f/u at [facility] -on Clonazepam ASHD (arteriosclerotic heart disease) Atrial fibrillation Remains in sinus rhythm. Continue current regimen CHF (congestive heart failure) -acute exacerbation, BNP-73 -Echo (05/2019): EF=61%, G1DD, trace MR, trace to mild TR, trace MO -not on chronic diuretics; on IV Lasix -daily weights, monitor Is & Os; total negative fluid balance of 3.2 L Depression Elevated troponin -noted troponins with 2-hr delta of 10.40, 6hr troponin lower with no significant delta -serial ECGs, so far, no acute ischemic changes -telemetry monitoring -has known hx of non-ischemic cardiomyopathy s/p pacemaker/AICD -had prior nuclear stress testing done in 05/2019 showing small sized reversible perfusion abnormality of mild severity of apical inferior and apical lateral doherty that may represent small area of ischemia in LAD territory -Cardiology evaluation by Dr. Mendoza appreciated; IV diuresis -VSS; continue to monitor -received dose of therapeutic lovenox, ASA 325 mg in ED -on ASA -Echo (05/2019): EF=61%, G1DD, trace MR, trace to mild TR, trace MO -noted lipid panel, A1c, TSH; start on statin -PAULINA -CXR unremarkable -unable to tolerate Imdur, persistent DUNN GERD (gastroesophageal reflux disease) Hyperlipidemia -started on statin, noted lipid panel Hypertension -initially hypertensive, BP well controlled -on oral antihypertensives -continue to monitor vital signs IBS (irritable bowel syndrome) Nonischemic cardiomyopathy -f/u with Dr. Welsh -has pacemaker and AICD, no recent firing Surgical History S/P appendectomy S/P cholecystectomy S/P ICD (internal cardiac defibrillator) procedure Family History Mother Cancer Social History Smoking and tobacco status: never smoked Alcohol intake: former Lives independently: Yes Physical Exam Const: COMMON NORMALS: no acute distress, patient oriented x3, no limitations and alert GENERAL APPEARANCE: cooperative HENMT: COMMON NORMALS: normocephalic, atraumatic, external ears normal, EAC's normal and Normal external nose present HEAD & SCALP: normal to inspection, normocephalic and atraumatic FACE & SINUS: normal facial exam and face symmetric NOSE: Normal external nose present and Normal nares present EXTERNAL EAR: Yes external ears normal EXTERNAL AUDITORY CANAL: EAC's normal MOUTH: Normal oral and palatal mucosa present, lip normal and tongue normal Eye: COMMON NORMALS: Equal, round and reactive pupils present and conjunctivae normal GENERAL EYE: appearance normal, both eyes and all related structures ALIGNMENT: Yes alignment normal PERIORBITAL: periorbital findings normal EYELID: eyelids normal CONJUNCTIVA: Yes conjunctivae normal SCLERA: sclerae normal PUPIL: Yes Equal, round and reactive pupils present Neck/C-Spine: COMMON NORMALS: full ROM, no lymphadenopathy, supple, no meningeal signs and no JVD GENERAL: Yes normal visual inspection and Yes trachea midline Chest: COMMONS NORMALS: normal inspection of the chest and normal palpation of entire chest wall Resp: COMMON NORMALS: normal respiratory effort, No retractions, No use of accessory muscles and clear to auscultation bilaterally EFFORT & INSPECTION: Yes able to speak in complete sentences and Yes symmetric chest movement AUSCULTATION: clear to auscultation bilaterally, no crackles, no rales, no rhonchi and no wheezes Cardio: COMMON NORMALS: no JVD, regular rate, regular rhythm, S1 normal heart sound present and S2 normal heart sound present RATE: regular rate RHYTHM: regular rhythm HEART SOUNDS: S1 normal heart sound present, S2 normal heart sound present, no click, no gallops, no murmurs and no rubs GI: COMMON NORMALS: Soft to palpation and No hepatosplenomegaly present PALPATION: Yes Soft to palpation, No Tenderness to palpation present (GI), No Guarding due to palpation present (GI), No Rigid due to palpation, Yes No hepatosplenomegaly present, No Hernia present, No Palpable mass present and No Pulsatile mass present : COMMON NORMALS: Yes no CVA tenderness BLADDER/KIDNEY EXAM: Yes no CVA tenderness Back/Pelvis: COMMON NORMALS: no CVA tenderness, thoracic and lumbar spine normal to inspection, no thoracic nor lumbar tenderness and thoraco-lumbar ROM normal Extremity: COMMON NORMALS: normal to inspection, full ROM, capillary refill normal, no joint enlargement, no clubbing, cyanosis or edema and no calf tenderness Neuro: COMMON NORMALS: patient oriented x3, CN's II-XII intact bilaterally, moves all extremities, no focal motor deficits and no sensory deficits noted SENSORIUM/ORIENTATION: Yes alert MENINGEAL SIGNS: Yes no meningeal signs SPEECH: speech normal Psych: COMMON NORMALS: mental status grossly normal, Normal thought process present, cooperative, normal affect, speech normal and activity/motor behavior normal SPEECH: Yes normal speech THOUGHT PROCESS: Normal thought process present Skin: COMMON NORMALS: no rashes or lesions noted, turgor normal, no jaundice, no petechiae and no mottling GENERAL SKIN EXAM: no rashes or lesions noted and turgor normal Course Vital Signs: Vital signs: Vital Signs Temperature 98.0 F 09/03/20 05:26 Pulse Rate 75 09/03/20 06:07 Respiratory Rate 16 09/03/20 06:07 Blood Pressure 146/70 09/03/20 06:07 Pulse Oximetry 95 09/03/20 06:07 MDM - General Adult MDM Narrative: Medical decision making narrative: Mr. Garcia is a very nice 54-year-old male who comes in complaining of withdrawal symptoms from opiates as he has had his oxycodone not be able to be filled until Saturday. Patient has gone not every day but it sounds as though most days since August 27 without any opiates. His vital signs are stable and he is complaining of primarily vomiting and diarrhea at home. Here his exam is unremarkable. I have informed him that I cannot refill his oxycodone prescription but can give him medicines to help with the vomiting, diarrhea and anxiety. He agrees to this plan. I have asked him point blank more than once if he is suicidal or homicidal but he denies. He states he wants to just get through till Saturday and then start his regular medications and get his life back to normal. The patient be given Bentyl for diarrhea, Zofran for nausea and Atarax for anxiety. Patient understands if his symptoms get worse or he cannot deal with this he can return here to the ER. Patient states he understood all my directions and agreed with this treatment plan. Discharge Plan Discharge Patient Disposition: Home Clinical Impression: Opioid withdrawal Condition: Stable Prescriptions: New dicyclomine 20 mg tablet 20 mg PO QID Qty: 20 RF: 0 Zofran 4 mg tablet 4 mg PO Q6H PRN (Reason: nausea and vomiting) Qty: 20 RF: 0 hydroxyzine HCl 25 mg tablet 25 mg PO 6XD PRN (Reason: anxiety) Qty: 30 RF: 0 No Action clonazepam [Klonopin] 1 mg tablet 1 mg PO TID PRN (Reason: Anxiety) RF: 0 lisinopril 2.5 mg tablet 2.5 mg PO DAILY RF: 0 sotalol [Betapace] 120 mg tablet 120 mg PO BID RF: 0 magnesium oxide 500 mg capsule 500 mg PO DAILY RF: 0 Trintellix 5 mg tablet 5 mg PO BID RF: 0 aspirin 81 mg Tablet,Delayed Release (Dr/Ec) 81 mg PO DAILY RF: 0 oxycodone 15 mg Tablet 15 mg PO Q8H PRN (Reason: Pain) RF: 0 furosemide [Lasix] 20 mg tablet 20 mg PO QAM Qty: 30 RF: 5 potassium chloride 10 mEq capsule, extended release 10 meq PO DAILY Qty: 30 RF: 4 Discharge Orders: Discharge Order (Routine); Ordered 09/03/20 Ordered By: Jessica Tong Referrals: Tash Zimmerman DO [Primary Care Provider] - 1-3 days Discharge Diet: Advance as tolerated Discharge Activity: Increase activity as tolerated Patient Instructions: Narcotic Abuse (ED) Activity Restrictions/Additional Instructions: Please return to the ER immediately for any of the signs or symptoms listed on your discharge instruction sheets, worsening/changing of your symptoms, you are not getting better as quickly as expected, or for ANY other cause or concerns. Be certain to cook pickled meat your medications on Saturday that is been prescribed to you by Dr. Zimmerman. 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
[2020-09-03 06:45] VITALS: BP 123/76; PULSE 72; RESP 16; O2SAT 96
[2020-09-03] MEDS: hyDROXYzine 25 mg Capsule 50 MG PO (06:46)
[2020-09-03] MEDS: ondansetron 4 MG Tablet PO (06:47)
== END 2020-09-03 06:49 | disposition home or self-care (01) ==
PROVIDERS: Emergency Provider Emergency Medicine; PCP Family Medicine
DX: F11.23 Opioid dependence with withdrawal (principal); F41.9 Anxiety disorder, unspecified; Z79.1 Long term (current) use of non-steroidal anti-inflammatories (NSAID)
CPT/HCPCS: 12345; 99281; 99283; Q0162

== ENCOUNTER 2020-09-24 18:04 | Emergency (ER) | payer MEDICARE, MEDICAID, SELFPAY ==
[2020-09-24 18:09] VITALS: BP 134/86; PULSE 78; RESP 16; TEMP 36.7; O2SAT 96; BMI 34.2
[2020-09-24 18:17] LABS: Glucose Point of Care 205 mg/dL (70-110)
[2020-09-24 18:27] LABS: ABG PCO2 39.9 mmHg (35-45); Arterial Blood Gas Hematocrit 46.7 % (42-52); Base Excess ABG 0.2 mmol/L (-2.0-2.0); Blood Gas Allen Test Pos; Blood Gas Operator Identificat ED; Blood Gas Sample Site Radial, right; Blood Gas Sample Type Arterial; HCO3 ABG 24.9 mmol/L (22-26); Oxygen Device ROOM AIR; PO2 ABG 88.6 mmHg (80.0-100.0)
[2020-09-24] MEDS: sodium chloride 0.9% 1,000 ML 999 ML IV (18:44)
[2020-09-24 18:46] LABS: Basophils # 0.1 10^3/uL (0.0-0.1); Basophils % 0.8 %; Eosinophils # 0.5 10^3/uL (0.0-0.8); Eosinophils % 6.2 %; Hematocrit 43.7 % (42.0-52.0); Hemoglobin 14.6 g/dL (11.7-16.6); Lymphocytes # 2.3 10^3/uL (0.8-4.8); Lymphocytes % 31.4 %; Mean Corpuscular HGB Conc 33.4 g/dL (30.0-36.0); Mean Corpuscular Hemoglobin 28.6 pg (28.0-34.0); Mean Corpuscular Volume 85.7 fL (80-94); Mean Platelet Volume 9.7 fL (7.4-10.4); Monocytes # 0.7 10^3/uL (0.2-0.9); Monocytes % 9.8 %; Neutrophils # 3.83 10^3/uL (1.8-7.7); Neutrophils % 51.3 %; Nucleated Red Blood Cells % 0 %; Platelet Count 272 10^3/cmm (130-400); Red Cell Distribution Width 12.1 % (12.1-15.1); White Blood Count 7.5 10^3/uL (4.0-10.0)
[2020-09-24 18:56] LABS: Ketone (Acetest) Serum Negative (Negative)
[2020-09-24 19:09] LABS: Alanine Aminotransferase 14 U/L (0-41); Albumin Level 4.1 g/dL (3.5-5.2); Alkaline Phosphatase 107 IU/L (40-130); Anion Gap 14.9 (5-19); Aspartate Amino Transferase 14 U/L (0-40); Blood Urea Nitrogen 13 mg/dL (6-20); Carbon Dioxide 26 mmol/L (22-29); Chloride 100 mmol/L (98-107); Creatinine Clr Calc Pharmacy 124.7632; Globulin 2.2 g/dL (1.3-4.6); Glomerular Filtration Rate 87.6 mL/min (90-130); Glucose 193 mg/dL (65-115); Osmolality Calculated 289 mOsm/kg (285-295); Potassium 3.9 mmol/L (3.5-5.1); Sodium 137 mmol/L (136-145); Total Protein 6.3 g/dL (6.6-8.7)
[2020-09-24 19:24] VITALS: BP 127/79; PULSE 84; RESP 18; O2SAT 97
[2020-09-24 19:53] VITALS: BP 127/79; PULSE 81; RESP 17; O2SAT 97
[2020-09-24 20:09] LABS: Add Urine Microscopic? NO
[2020-09-24 20:11] LABS: Blood Urine Neg (Negative); Glucose Urine UA 4+ (Normal); Ketones Urine Negative (Negative); Nitrate Urine Negative (Negative); Protein Urine Neg (Negative); Urine Appearance Clear (CLEAR); Urine Color Yellow (Yellow); pH Urine 5 (5-7)
[2020-09-24 20:12] LABS: Bilirubin Urine Neg (Negative); Leukocyte Esterase Urine Negative (Negative); Urobilinogen Urine Norm (Negative)
--- NOTE | 2020-09-24 20:21 | ED_ITS ---
HPI - General Adult General: Chief complaint: General Medical Stated complaint: ELEVATED BLOOD SUGAR Time Seen by Provider: 09/24/20 18:16 History of Present Illness: HPI narrative: 55-year-old gentleman with a history of diabetes. He presents with dizziness and nausea with some polyuria type symptoms. He notes he has been like this for a few days. He checked his sugar today, and it was 264. He has not had to use Metformin for his blood sugar in a couple of years since he lost some weight, but recently regained some weight. Is afraid this is what is making him nauseated. He has no fever, no cough, no other symptoms. He has no abdominal pain. Onset (ago): day(s) Relieving factors: none Exacerbating factors: none Associated symptoms: Reports malaise, nausea and vomiting; Deny chest pain, cough, diaphoresis, dyspnea, fevers/chills, headache(s), short of breath or syncope Review of Systems Const: Reports: malaise; Denies: diaphoresis Card: Denies: chest pain or syncope Resp: Denies: dyspnea GI: Reports: nausea and vomiting Neuro: Denies: headache(s) PFS ED PFSH: Medical History Anxiety -f/u at [facility] -on Clonazepam ASHD (arteriosclerotic heart disease) Atrial fibrillation Remains in sinus rhythm. Continue current regimen CHF (congestive heart failure) -acute exacerbation, BNP-73 -Echo (05/2019): EF=61%, G1DD, trace MR, trace to mild TR, trace MI -not on chronic diuretics; on IV Lasix -daily weights, monitor Is & Os; total negative fluid balance of 3.2 L Depression Elevated troponin -noted troponins with 2-hr delta of 10.40, 6hr troponin lower with no significant delta -serial ECGs, so far, no acute ischemic changes -telemetry monitoring -has known hx of non-ischemic cardiomyopathy s/p pacemaker/AICD -had prior nuclear stress testing done in 05/2019 showing small sized reversible perfusion abnormality of mild severity of apical inferior and apical lateral doherty that may represent small area of ischemia in LAD territory -Cardiology evaluation by Dr. Mendoza appreciated; IV diuresis -VSS; continue to monitor -received dose of therapeutic lovenox, ASA 325 mg in ED -on ASA -Echo (05/2019): EF=61%, G1DD, trace MR, trace to mild TR, trace MI -noted lipid panel, A1c, TSH; start on statin -PAULINA -CXR unremarkable -unable to tolerate Imdur, persistent DUNN GERD (gastroesophageal reflux disease) Hyperlipidemia -started on statin, noted lipid panel Hypertension -initially hypertensive, BP well controlled -on oral antihypertensives -continue to monitor vital signs IBS (irritable bowel syndrome) Nonischemic cardiomyopathy -f/u with Dr. Welsh -has pacemaker and AICD, no recent firing Surgical History S/P appendectomy S/P cholecystectomy S/P ICD (internal cardiac defibrillator) procedure Family History Mother Cancer Social History Smoking and tobacco status: never smoked Alcohol intake: former Lives independently: Yes Physical Exam Const: GENERAL APPEARANCE: well developed ORIENTATION/CONSCIOUSNESS: Yes oriented to person, Yes oriented to place and Yes oriented to time HENMT: COMMON NORMALS: normocephalic, external ears normal and Normal external nose present HEAD & SCALP: normocephalic FACE & SINUS: normal facial exam NOSE: Normal external nose present and No nasal discharge present EXTERNAL EAR: Yes external ears normal Eye: COMMON NORMALS: Equal, round and reactive pupils present, EOMs intact bilaterally and conjunctivae normal EYELID: eyelids normal CONJUNCTIVA: Yes conjunctivae normal PUPIL: Yes Equal, round and reactive pupils present Neck/C-Spine: GENERAL: No tracheal deviation Chest: COMMONS NORMALS: normal inspection of the chest CHEST: No tenderness Resp: COMMON NORMALS: clear to auscultation bilaterally EFFORT & INSPECTION: No tachypneic, No respiratory distress, No retractions, No uses accessory muscles and No tracheal deviation AUSCULTATION: clear to auscultation bilaterally, no rhonchi, no wheezes and lung sounds not diminished Cardio: COMMON NORMALS: regular rate and regular rhythm RATE: regular rate RHYTHM: regular rhythm HEART SOUNDS: no murmurs PERIPHERAL PULSES: radial pulses present GI: INSPECTION: No abdominal distension AUSCULTATION: No Hyperactive bowel sounds present and No Hypoactive bowel sounds present PALPATION: No Guarding due to palpation present (GI) and No Rigid due to palpation PERCUSSION: no dullness to percussion and no tympanic to percussion Neuro: SENSORIUM/ORIENTATION: Yes oriented to person, Yes oriented to place and Yes oriented to time Psych: COMMON NORMALS: mental status grossly normal Skin: COMMON NORMALS: no rashes or lesions noted GENERAL SKIN EXAM: no rashes or lesions noted Course Vital Signs: Vital signs: Vital Signs Temperature 98.1 F 09/24/20 18:09 Pulse Rate 87 09/24/20 20:39 Respiratory Rate 17 09/24/20 20:39 Blood Pressure 153/94 09/24/20 20:39 Pulse Oximetry 99 09/24/20 20:39 MDM - General Adult MDM Narrative: Medical decision making narrative: For IV fluid, his sugars come down. His other labs are normal. Serum ketones are negative. Blood gas is normal. His nausea is improved. He will be allowed home. He will be placed back on his Metformin. He has a PCP appointment next week. Lab Data: Labs: Lab Results 09/24/20 09/24/20 09/24/20 Range/Units 18:08 18:13 18:25 WBC 7.5 (4.0-10.0) 10^3/ uL RBC 5.10 (4.1-5.3) 10^6/u L Hgb 14.6 (11.7-16.6) g/dL Hct 43.7 (42.0-52.0) % MCV 85.7 (80-94) fL MCH 28.6 (28.0-34.0) pg MCHC 33.4 (30.0-36.0) g/dL RDW 12.1 (12.1-15.1) % Plt Count 272 (130-400) 10^3/c mm MPV 9.7 (7.4-10.4) fL Neut % (Auto) 51.3 % Lymph % (Auto) 31.4 % Meagher % (Auto) 9.8 % Eos % (Auto) 6.2 % Baso % (Auto) 0.8 % Neut # (Auto) 3.83 (1.8-7.7) 10^3/u L Lymph # (Auto) 2.3 (0.8-4.8) 10^3/u L Meagher # (Auto) 0.7 (0.2-0.9) 10^3/u L Eos # (Auto) 0.5 (0.0-0.8) 10^3/u L Baso # (Auto) 0.1 (0.0-0.1) 10^3/u L Nucleated RBC % (a uto) 0 % Nucleated RBCs # 0.0 /100WBC Specimen Type Arterial Sample Site Radial, right ABG pH 7.40 (7.35-7.45) ABG pCO2 39.9 (35-45) mmHg ABG pO2 88.6 (80.0-100.0) mmH g ABG HCO3 24.9 (22-26) mmol/L ABG Base Excess 0.2 (-2.0-2.0) mmol/ L Carlos Test Pos Hematocrit 46.7 (42-52) % O2 Delivery Device Room air FiO2 21.0 % Voltage Regulator Assembler ID Ed Sodium (136-145) mmol/L Potassium (3.5-5.1) mmol/L Chloride (98-107) mmol/L Carbon Dioxide (22-29) mmol/L Anion Gap (5-19) BUN (6-20) mg/dL Creatinine (0.7-1.2) mg/dL GFR Calculation (90-130) mL/min Glucose (65-115) mg/dL POC Glucose 205 (70-110) mg/dL Calculated Osmolal ity (285-295) mOsm/k g Calcium (8.5-10.5) mg/dL Total Bilirubin (0.15-1.2) mg/dL AST (0-40) U/L ALT (0-41) U/L Alkaline Phosphata se (40-130) IU/L Total Protein (6.6-8.7) g/dL Albumin (3.5-5.2) g/dL Globulin (1.3-4.6) g/dL Urine Color (Yellow) Urine Appearance (CLEAR) Urine pH (5-7) Ur Specific Gravit y (1.005-1.030) Urine Protein (Negative) Urine Glucose (UA) (Normal) Urine Ketones (Negative) Urine Blood (Negative) Urine Nitrate (Negative) Urine Bilirubin (Negative) Urine Urobilinogen (Negative) mg/dL Ur Leukocyte Sandi ase (Negative) Serum Ketones (Negative) 09/24/20 09/24/20 Range/Units 18:25 18:25 WBC (4.0-10.0) 10^3/ uL RBC (4.1-5.3) 10^6/u L Hgb (11.7-16.6) g/dL Hct (42.0-52.0) % MCV (80-94) fL MCH (28.0-34.0) pg MCHC (30.0-36.0) g/dL RDW (12.1-15.1) % Plt Count (130-400) 10^3/c mm MPV (7.4-10.4) fL Neut % (Auto) % Lymph % (Auto) % Meagher % (Auto) % Eos % (Auto) % Baso % (Auto) % Neut # (Auto) (1.8-7.7) 10^3/u L Lymph # (Auto) (0.8-4.8) 10^3/u L Meagher # (Auto) (0.2-0.9) 10^3/u L Eos # (Auto) (0.0-0.8) 10^3/u L Baso # (Auto) (0.0-0.1) 10^3/u L Nucleated RBC % (a uto) % Nucleated RBCs # /100WBC Specimen Type Sample Site ABG pH (7.35-7.45) ABG pCO2 (35-45) mmHg ABG pO2 (80.0-100.0) mmH g ABG HCO3 (22-26) mmol/L ABG Base Excess (-2.0-2.0) mmol/ L Carlos Test Hematocrit (42-52) % O2 Delivery Device FiO2 % Voltage Regulator Assembler ID Sodium 137 (136-145) mmol/L Potassium 3.9 (3.5-5.1) mmol/L Chloride 100 (98-107) mmol/L Carbon Dioxide 26 (22-29) mmol/L Anion Gap 14.9 (5-19) BUN 13 (6-20) mg/dL Creatinine 0.9 (0.7-1.2) mg/dL GFR Calculation 87.6 L (90-130) mL/min Glucose 193 H (65-115) mg/dL POC Glucose (70-110) mg/dL Calculated Osmolal ity 289 (285-295) mOsm/k g Calcium 9.0 (8.5-10.5) mg/dL Total Bilirubin 1.0 (0.15-1.2) mg/dL AST 14 (0-40) U/L ALT 14 (0-41) U/L Alkaline Phosphata se 107 (40-130) IU/L Total Protein 6.3 L (6.6-8.7) g/dL Albumin 4.1 (3.5-5.2) g/dL Globulin 2.2 (1.3-4.6) g/dL Urine Color Yellow (Yellow) Urine Appearance Clear (CLEAR) Urine pH 5 (5-7) Ur Specific Gravit y 1.020 (1.005-1.030) Urine Protein Neg (Negative) Urine Glucose (UA) 4+ H (Normal) Urine Ketones Negative (Negative) Urine Blood Neg (Negative) Urine Nitrate Negative (Negative) Urine Bilirubin Neg (Negative) Urine Urobilinogen Norm (Negative) mg/dL Ur Leukocyte Sandi ase Negative (Negative) Serum Ketones Negative (Negative) Discharge Plan Discharge Patient Disposition: Home Clinical Impression: Acute hyperglycemia Condition: Stable Prescriptions: New metformin 500 mg tablet 500 mg PO BID Qty: 60 RF: 0 No Action clonazepam [Klonopin] 1 mg tablet 1 mg PO TID PRN (Reason: Anxiety) RF: 0 lisinopril 2.5 mg tablet 2.5 mg PO DAILY RF: 0 sotalol [Betapace] 120 mg tablet 120 mg PO BID RF: 0 magnesium oxide 500 mg capsule 500 mg PO DAILY RF: 0 Trintellix 5 mg tablet 5 mg PO BID RF: 0 aspirin 81 mg Tablet,Delayed Release (Dr/Ec) 81 mg PO DAILY RF: 0 oxycodone 15 mg Tablet 15 mg PO Q8H PRN (Reason: Pain) RF: 0 furosemide [Lasix] 20 mg tablet 20 mg PO QAM Qty: 30 RF: 5 potassium chloride 10 mEq capsule, extended release 10 meq PO DAILY Qty: 30 RF: 4 dicyclomine 20 mg tablet 20 mg PO QID Qty: 20 RF: 0 Zofran 4 mg tablet 4 mg PO Q6H PRN (Reason: nausea and vomiting) Qty: 20 RF: 0 hydroxyzine HCl 25 mg tablet 25 mg PO 6XD PRN (Reason: anxiety) Qty: 30 RF: 0 Discharge Orders: Discharge ED (Routine); Ordered 09/24/20 Ordered By: Jose Chang Referrals: Tash Zimmerman DO [Primary Care Provider] - 4-7 days Discharge Diet: Advance as tolerated Discharge Activity: Increase activity as tolerated Patient Instructions: Hyperglycemia Activity Restrictions/Additional Instructions: Return for worsening nausea, abdominal pain, fever, vomiting liquids or medications, blood in the stool, other concerning symptoms. Coding Level of Care Code ED Hole Filler for Chg 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
[2020-09-24 20:39] VITALS: BP 153/94; PULSE 87; RESP 17; O2SAT 99
[2020-09-24] MEDS: metformin 500 mg Tablet PO (20:39)
== END 2020-09-24 20:44 | disposition home or self-care (01) ==
PROVIDERS: Emergency Medicine; Emergency Provider Emergency Medicine; PCP Family Medicine
DX: R73.9 Hyperglycemia, unspecified (principal); Z79.82 Long term (current) use of aspirin; I48.91 Unspecified atrial fibrillation; I11.0 Hypertensive heart disease with heart failure; I50.9 Heart failure, unspecified; E78.5 Hyperlipidemia, unspecified
CPT/HCPCS: 12345; 36416; 36600; 80053; 81003; 82009; 82803; 82962; 85025; 96360; 99282; 99283; J7030

== ENCOUNTER 2020-12-19 19:03 | Emergency (ER) | payer MEDICARE, MEDICAID, SELFPAY ==
[2020-12-19 19:06] VITALS: BP 122/76; PULSE 89; RESP 16; TEMP 36.1; O2SAT 96; BMI 30.3
[2020-12-19] MEDS: lidocaine 1% INJ 20 mL 5 ML INTRADERMA (19:30)
[2020-12-19 19:33] VITALS: BP 123/83; PULSE 73; RESP 16; O2SAT 97
--- NOTE | 2020-12-19 19:39 | ED_ITS ---
HPI - Wound/Laceration General: Chief Complaint: Wound/Laceration Stated Complaint: finger lac/toothache Time Seen by Provider: 12/19/20 19:08 History of Present Illness: HPI narrative: Patient has a dental abscess has appoint with the dentist end of this week. Also sustained a laceration while doing some wood carving -to his left index finger. Bleeding controlled Onset (ago): hour(s) Extremity Location: Left: hand Place: home Patient tetanus UTD: No Associated symptoms: Denies chills, fever(s), nausea or vomiting Treatments prior to arrival: bandage Review of Systems Const: Denies: fever(s), chills or body aches Eyes: Denies: change in vision or blurry vision ENMT: Reports: other (Dental pain abscess right upper side history of dental caries); Denies: throat pain or nasal congestion Card: Denies: chest pain or dyspnea on exertion Resp: Denies: dyspnea, productive cough or non-productive cough GI: Denies: abdominal pain, nausea or vomiting : Denies: difficulty urinating Musc: Denies: extremity pain Skin/Breast: Reports: other (Laceration left index finger happened while woodcarving); Denies: rash Neuro: Denies: headache(s) Psych: Denies: anxiety or depression Jacques/Lymph: Denies: easy bruising PFSH ED PFSH: Medical History Anxiety -f/u at [facility] [place] -on Clonazepam ASHD (arteriosclerotic heart disease) Atrial fibrillation Remains in sinus rhythm. Continue current regimen CHF (congestive heart failure) -acute exacerbation, BNP-73 -Echo (05/2019): EF=61%, G1DD, trace MR, trace to mild TR, trace [place] -not on chronic diuretics; on IV Lasix -daily weights, monitor Is & Os; total negative fluid balance of 3.2 L Depression Elevated troponin -noted troponins with 2-hr delta of 10.40, 6hr troponin lower with no significant delta -serial ECGs, so far, no acute ischemic changes -telemetry monitoring -has known hx of non-ischemic cardiomyopathy s/p pacemaker/AICD -had prior nuclear stress testing done in 05/2019 showing small sized reversible perfusion abnormality of mild severity of apical inferior and ap ical lateral doherty that may represent small area of ischemia in LAD territory -Cardiology evaluation by Dr. Mendoza appreciated; IV diuresis -VSS; continue to monitor -received dose of therapeutic lovenox, ASA 325 mg in ED -on ASA -Echo (05/2019): EF=61%, G1DD, trace MR, trace to mild TR, trace [place] -noted lipid panel, A1c, TSH; start on statin -PAULINA -CXR unremarkable -unable to tolerate Imdur, persistent DUNN GERD (gastroesophageal reflux disease) Hyperlipidemia -started on statin, noted lipid panel Hypertension -initially hypertensive, BP well controlled -on oral antihypertensives -continue to monitor vital signs IBS (irritable bowel syndrome) Nonischemic cardiomyopathy -f/u with Dr. Welsh -has pacemaker and AICD, no recent firing Surgical History S/P appendectomy S/P cholecystectomy S/P ICD (internal cardiac defibrillator) procedure Family History Mother Cancer Social History Smoking and tobacco status: never smoked Alcohol intake: former Lives independently: Yes Physical Exam Const: COMMON NORMALS: no acute distress HENMT: TEETH & GINGIVA IMAGES: 1. Severe dental caries tooth with redness extending up to the gumline tender Psych: COMMON NORMALS: mental status grossly normal Skin: OTHER: Has 1/2 inch laceration base left index finger palmar aspect lateral side with slight oozing of blood. Closed with four 5-0 nylon sutures Procedures Laceration Laceration 1: Site: hand Side (If applicable): left Size (cm): 2 Description: linear and clean Depth: simple, single layer Local Anesthetic: lidocaine 1% Pre-repair: wound explored and irrigated extensively Skin layer closed with: nylon Size (cm): 5-0 Number of sutures: 4 Technique: simple, interrupted and other (Wound was intact after showing well approximated distal neurovascular intact full range of motion) Course Vital Signs: Vital signs: Vital Signs Temperature 96.9 F L 12/19/20 19:06 Pulse Rate 73 12/19/20 19:33 Respiratory Rate 16 12/19/20 19:33 Blood Pressure 123/83 12/19/20 19:33 Pulse Oximetry 97 12/19/20 19:33 Discharge Plan Discharge Patient Disposition: Home Clinical Impression: Laceration, Abscess, dental Condition: Stable Prescriptions: New clindamycin HCl 300 mg capsule 300 mg PO Q8H 7 Days Qty: 21 RF: 0 No Action clonazepam [Klonopin] 1 mg tablet 1 mg PO TID PRN (Reason: Anxiety) RF: 0 lisinopril 2.5 mg tablet 2.5 mg PO DAILY RF: 0 sotalol [Betapace] 120 mg tablet 120 mg PO BID RF: 0 magnesium oxide 500 mg capsule 500 mg PO DAILY RF: 0 Trintellix 5 mg tablet 5 mg PO BID RF: 0 aspirin 81 mg Tablet,Delayed Release (Dr/Ec) 81 mg PO DAILY RF: 0 oxycodone 15 mg Tablet 15 mg PO Q8H PRN (Reason: Pain) RF: 0 furosemide [Lasix] 20 mg tablet 20 mg PO QAM Qty: 30 RF: 5 potassium chloride 10 mEq capsule, extended release 10 meq PO DAILY Qty: 30 RF: 4 dicyclomine 20 mg tablet 20 mg PO QID Qty: 20 RF: 0 Zofran 4 mg tablet 4 mg PO Q6H PRN (Reason: nausea and vomiting) Qty: 20 RF: 0 hydroxyzine HCl 25 mg tablet 25 mg PO 6XD PRN (Reason: anxiety) Qty: 30 RF: 0 metformin 500 mg tablet 500 mg PO BID Qty: 60 RF: 0 Discharge Orders: Discharge ED (Routine); Ordered 12/19/20 Ordered By: Pro Mueller Referrals: Tash Zimmerman DO [Primary Care Provider] - Discharge Diet: Usual diet Discharge Activity: Resume usual activity Patient Instructions: Laceration (ED), Dental Abscess (ED) Activity Restrictions/Additional Instructions: Follow-up with medical provider as directed. Take medications as prescribed. Return to the ER or your medical provider if condition worsens. Please read and understand discharge instructions. If any questions ask please. Sutures out in 7 days. Follow-up with dentist as soon as possible. Coding Level of Care Code ED Insurance Claims Examiner for Suad Hicks
[2020-12-19] MEDS: clindamycin 150 mg Capsule 300 MG PO (19:40)
[2020-12-19] MEDS: tetanus-dipt-pertussis 0.5 mL SDV IM (19:45)
== END 2020-12-19 20:04 | disposition home or self-care (01) ==
PROVIDERS: Emergency Provider Nurse Practitioner Family; PCP Family Medicine
DX: K04.7 Periapical abscess without sinus (principal); S61.211A Laceration without foreign body of left index finger without damage to nail, initial encounter; W26.0XXA Contact with knife, initial encounter; I48.91 Unspecified atrial fibrillation; I11.0 Hypertensive heart disease with heart failure; I50.9 Heart failure, unspecified; E78.5 Hyperlipidemia, unspecified; Z95.0 Presence of cardiac pacemaker; Z23 Encounter for immunization
CPT/HCPCS: 12001; 90471; 90715; 99283

== ENCOUNTER 2021-02-11 13:17 | Emergency (ER) | payer MEDICARE, MEDICAID, SELFPAY ==
[2021-02-11 13:29] VITALS: BP 105/56; PULSE 69; RESP 18; O2SAT 94; BMI 18.4
--- NOTE | 2021-02-11 13:31 | W.ED.LOWEXIN ---
HPI - Extremity Injury (Lower) General: Chief Complaint: Wound/Laceration Stated Complaint: lac to Left buttock Time Seen by Provider: 02/11/21 13:31 History of Present Illness: HPI Narrative: Patient had sat down on a woodcarving tool that had fallen out of his pocket. He sustained a puncture wound to the right upper thigh. Patient had difficulty getting bleeding under control and came into the emergency department for further evaluation and treatment. Patient states he had a tetanus shot in the last year. Patient appears well. Patient appears no acute distress. MD complaint: thigh injury Type of Injury: puncture wound Place: home Severity: mild Relieving factors: nothing Exacerbating factors: movement Review of Systems General: Reports: 10 or more systems reviewed and unremarkable except in HPI and below Skin/Breast: Reports: other (Puncture wound right hip) PFS ED PFSH: Medical History Anxiety -f/u at [facility] -on Clonazepam ASHD (arteriosclerotic heart disease) Atrial fibrillation Remains in sinus rhythm. Continue current regimen CHF (congestive heart failure) -acute exacerbation, BNP-73 -Echo (05/2019): EF=61%, G1DD, trace MR, trace to mild TR, trace [place] -not on chronic diuretics; on IV Lasix -daily weights, monitor Is & Os; total negative fluid balance of 3.2 L Depression Elevated troponin -noted troponins with 2-hr delta of 10.40, 6hr troponin lower with no significant delta -serial ECGs, so far, no acute ischemic changes -telemetry monitoring -has known hx of non-ischemic cardiomyopathy s/p pacemaker/AICD -had prior nuclear stress testing done in 05/2019 showing small sized reversible perfusion abnormality of mild severity of apical inferior and apical lateral doherty that may represent small area of ischemia in LAD territory -Cardiology evaluation by Dr. Mendoza appreciated; IV diuresis -VSS; continue to monitor -received dose of therapeutic lovenox, ASA 325 mg in ED -on ASA -Echo (05/2019): EF=61%, G1DD, trace MR, trace to mild TR, trace [place] -noted lipid panel, A1c, TSH; start on statin -PAULINA -CXR unremarkable -unable to tolerate Imdur, persistent DUNN GERD (gastroesophageal reflux disease) Hyperlipidemia -started on statin, noted lipid panel Hypertension -initially hypertensive, BP well controlled -on oral antihypertensives -continue to monitor vital signs IBS (irritable bowel syndrome) Nonischemic cardiomyopathy -f/u with Dr. Welsh -has pacemaker and AICD, no recent firing Surgical History S/P appendectomy S/P cholecystectomy S/P ICD (internal cardiac defibrillator) procedure Family History Mother Cancer Social History Smoking and tobacco status: never smoked Alcohol intake: former Lives independently: Yes Physical Exam Const: COMMON NORMALS: no acute distress and patient oriented x3 GENERAL APPEARANCE: cooperative HENMT: COMMON NORMALS: normocephalic and Normal external nose present HEAD & SCALP: normal to inspection and normocephalic NOSE: Normal external nose present Eye: GENERAL EYE: appearance normal, both eyes and all related structures Neck/C-Spine: COMMON NORMALS: full ROM Chest: COMMONS NORMALS: normal inspection of the chest Resp: COMMON NORMALS: normal respiratory effort EFFORT & INSPECTION: Yes able to speak in complete sentences Cardio: COMMON NORMALS: regular rate and regular rhythm RATE: regular rate RHYTHM: regular rhythm GI: COMMON NORMALS: non-tender Back/Pelvis: COMMON NORMALS: thoracic and lumbar spine normal to inspection Extremity: COMMON NORMALS: normal to inspection Neuro: COMMON NORMALS: patient oriented x3 and moves all extremities Psych: COMMON NORMALS: mental status grossly normal and cooperative Skin: NARRATIVE SKIN EXAM: 1 cm laceration to the right lateral thigh/hip area. Normal range of motion of the extremity. Bleeding is controlled at this time. Procedures Laceration Laceration 1: Site: lower extremity Side (If applicable): right Size (cm): 1 Description: linear Depth: simple, single layer Local Anesthetic: lidocaine 1% and with epi Amount of anesthesia used (mL): 3 Pre-repair: wound explored and irrigated extensively Skin layer closed with: nylon Size (cm): 5-0 Number of sutures: 1 Technique: horizontal mattress Course Vital Signs: Vital signs: Vital Signs Pulse Rate 69 02/11/21 13:29 Respiratory Rate 18 02/11/21 13:29 Blood Pressure 105/56 02/11/21 13:29 Pulse Oximetry 94 02/11/21 13:29 MDM - Extremity Injury (Lower) MDM Narrative: Medical decision making narrative: Patient comes in today with a laceration to the right hip. On exam patient has a 1 cm puncture wound to the right hip. Wound was cleaned with water and anesthetized with lidocaine with epinephrine. No sign of foreign body, no tendon injury, and normal range of motion of the joints noted. Reviewed exam with patient with recommendations for treatment and follow-up. Patient reported understanding and agreed to plan. Wound was repaired with 1 horizontal mattress suture. Patient was covered with doxycycline due to the contaminated nature and the puncture of the wound. Patient reported understanding and agreed to plan. Discharge Plan Discharge Patient Disposition: Home Clinical Impression: Laceration of hip, right Qualifiers: Encounter type: initial encounter Qualified Code(s): S71.011A - Laceration without foreign body, right hip, initial encounter Condition: Stable Prescriptions: New doxycycline monohydrate 100 mg capsule 100 mg PO BID 7 Days Qty: 14 RF: 0 No Action clonazepam [Klonopin] 1 mg tablet 1 mg PO TID PRN (Reason: Anxiety) RF: 0 lisinopril 2.5 mg tablet 2.5 mg PO DAILY RF: 0 sotalol [Betapace] 120 mg tablet 120 mg PO BID RF: 0 magnesium oxide 500 mg capsule 500 mg PO DAILY RF: 0 Trintellix 5 mg tablet 5 mg PO BID RF: 0 aspirin 81 mg Tablet,Delayed Release (Dr/Ec) 81 mg PO DAILY RF: 0 oxycodone 15 mg Tablet 15 mg PO Q8H PRN (Reason: Pain) RF: 0 furosemide [Lasix] 20 mg tablet 20 mg PO QAM Qty: 30 RF: 5 potassium chloride 10 mEq capsule, extended release 10 meq PO DAILY Qty: 30 RF: 4 dicyclomine 20 mg tablet 20 mg PO QID Qty: 20 RF: 0 Zofran 4 mg tablet 4 mg PO Q6H PRN (Reason: nausea and vomiting) Qty: 20 RF: 0 hydroxyzine HCl 25 mg tablet 25 mg PO 6XD PRN (Reason: anxiety) Qty: 30 RF: 0 metformin 500 mg tablet 500 mg PO BID Qty: 60 RF: 0 Discharge Orders: Discharge ED (Routine); Ordered 02/11/21 Ordered By: Wilman Nielsen Referrals: Tash Zimmerman DO [Primary Care Provider] - Discharge Diet: Usual diet Discharge Activity: Increase activity as tolerated Patient Instructions: Opioid Safety, Stitches and Eduar Care Activity Restrictions/Additional Instructions: Keep wound clean and dry. Try to keep the wound as dry as possible for the next 2 days. After that she can clean with soap and water as needed. Cover with a dry dressing. Take antibiotic as directed. Sutures out in 10 days. Return to the emergency department for new concerns. Coding Level of Care Code ED Knowledge Management Advisor for Suad Fwjennifer Exam Comprehensive
[2021-02-11] MEDS: doxycycline 100 mg Tablet PO (13:45)
== END 2021-02-11 14:19 | disposition home or self-care (01) ==
LOC: ER 14:23
PROVIDERS: Emergency Provider Nurse Practitioner Family; PCP Family Medicine
DX: S71.011A Laceration without foreign body, right hip, initial encounter (principal); W27.8XXA Contact with other nonpowered hand tool, initial encounter; Z79.82 Long term (current) use of aspirin; I48.91 Unspecified atrial fibrillation; I11.0 Hypertensive heart disease with heart failure; I50.9 Heart failure, unspecified; E78.5 Hyperlipidemia, unspecified
CPT/HCPCS: 12001; 99283

== ENCOUNTER 2021-07-05 09:52 | Emergency (ER) | payer MEDICARE, MEDICAID, SELFPAY ==
--- NOTE | 2021-07-05 | CTR_ITS ---
[facility] Final Radiology Report Call: [phone] Name: KARINA YADAV Age: 55Years M Date: 07/05/2021 SSN: [id number] : 1965 Study: CT HEAD WO Requesting Physician: KHURRAM PALMA Images: [id number] Provided Clinical History: fell Procedure Accession CTDI Vol (mGy) DLP (mGy-cm) CT HEAD WO [id number] 1090.53 PROCEDURE INFORMATION: Exam: CT Head Without Contrast Exam date and time: 07/05/2021 10:15 AM Age: 55 years old Clinical indication: Injury or trauma; Fall; Blunt trauma (contusions or hematomas); Consciousness not specified; Injury date: 07/04/21; Injury details: Fell off ladder TECHNIQUE: Imaging protocol: Computed tomography of the head without contrast. Radiation optimization: All CT scans at this facility use at least one of these dose optimization techniques: automated exposure control; mA and/or kV adjustment per patient size (includes targeted exams where dose is matched to clinical indication); or iterative reconstruction. COMPARISON: CT head wo con* [id number] 10/06/2018 2:27 PM RADIATION DOSE METRICS: Total DLP (mGy-cm): 1090.53 FINDINGS: Brain: Flores white matter distinction is maintained throughout the brain. No radiographic evidence of intracranial hemorrhage. No CT evidence of mass hemorrhage or acute infarction. Cerebral ventricles: Ventricles are of normal size and configuration. Paranasal sinuses: Visualized sinuses are unremarkable. No fluid levels. Mastoid air cells: Visualized mastoid air cells are well aerated. Bones/joints: Unremarkable. No acute fracture. Soft tissues: Unremarkable. Other findings: No intra or extra-axial masses, lesions or collections. IMPRESSION: No acute intracranial process is appreciated. Thank you for allowing us to participate in the care of your patient. Dictated and Authenticated by: Efren Gomez MD 07/05/2021 12:33 PM Central Time ([place] & [place]) [facility]
[2021-07-05 10:17] VITALS: BMI 33.0
[2021-07-05 10:25] VITALS: BP 111/73; PULSE 71; RESP 15; TEMP 37.2; O2SAT 97
--- NOTE | 2021-07-05 10:34 | XR_ITS ---
WS: [id number] Right hip, AP and and frog leg views, AP pelvis, 07/05/2021 Clinical Data: fx Comparison: None. Findings: No fractures or dislocations are seen. The right hip joint is intact. The soft tissues are not remark able. The SI joints and pubic symphysis are unremarkable. There are phleboliths in the true pelvis. T here are bilateral acetabular lips. 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
[2021-07-05 11:00] VITALS: BP 131/87; PULSE 66; RESP 16; O2SAT 97
--- NOTE | 2021-07-05 11:46 | XR_ITS ---
WS: [id number] Lumbar spine, 3 views, 07/05/2021 Clinical Data: rule out fx Comparison: Lumbar spine, 03/19/2019. Findings: No compression fractures or subluxation is seen. No disc space narrowing is seen. The transverse proc esses and SI joints are normal. There is mild osteoarthritic spurring from T12-L1 into L3-L4. XR/XR lumbar spine 2-3V* [id number] Impression: Mild osteoarthritis of the lumbar vertebral bodies.
[2021-07-05 12:00] VITALS: BP 101/69; PULSE 58; RESP 15; O2SAT 94
--- NOTE | 2021-07-05 12:13 | PC.NURSE ---
Pt to radiology.
--- NOTE | 2021-07-05 12:17 | W.ED.GENADLT ---
HPI - General Adult General: Chief complaint: Fall Stated complaint: FELL 8' FROM LADDER:HIT HEAD,L SIDE-HIP, BACK PAIN Time Seen by Provider: 07/05/21 10:19 History of Present Illness: HPI narrative: 55 M w/ hx of R tib/fib surgery presenting to the emergency room after falling from a ladder of 8 feet around 2:30 PM yesterday. Since then, patient says that he has been able to ambulate but reports significant lower back pain. Patient denies any bowel or bladder symptoms and denies any paresthesia in the lower extremities or saddle symptoms. Patient reports that there is no associated chest pain, shortness breath, light-headedness or palpitation when this happened. Patient reports hitting his head after the fall and but denies any LOC or focal neurological weakness. Today, patient complains of left-sided hip pain and lower back pain. Onset:1 day ago Duration:1 day Location:home Severity:mild/moderate Review of Systems Narrative: Constitutional: No fever, no chills. HEENT: No vision changes CV: No chest pain, no palpitations PULM: no cough, no dyspnea. GI: No abdominal pain, no N/V/D. : No dysuria MSKEL: +L hip pain and +lower back pain SKIN: No new rashes, no lesions. NEURO: No headache, no focal weakness. HEME: No visible bruises PSYCH: Normal mood PFSH ED PFSH: Medical History Anxiety -f/u at [facility] -on Clonazepam ASHD (arteriosclerotic heart disease) Atrial fibrillation Remains in sinus rhythm. Continue current regimen CHF (congestive heart failure) -acute exacerbation, BNP-73 -Echo (05/2019): EF=61%, G1DD, trace MR, trace to mild TR, trace CA -not on chronic diuretics; on IV Lasix -daily weights, monitor Is & Os; total negative fluid balance of 3.2 L Depression Elevated troponin -noted troponins with 2-hr delta of 10.40, 6hr troponin lower with no significant delta -serial ECGs, so far, no acute ischemic changes -telemetry monitoring -has known hx of non-ischemic cardiomyopathy s/p pacemaker/AICD -had prior nuclear stress testing done in 05/2019 showing small sized reversible perfusion abnormality of mild severity of apical inferior and apical lateral doherty that may represent small area of ischemia in LAD territory -Cardiology evaluation by Dr. Mendoza appreciated; IV diuresis -VSS; continue to monitor -received dose of therapeutic lovenox, ASA 325 mg in ED -on ASA -Echo (05/2019): EF=61%, G1DD, trace MR, trace to mild TR, trace CA -noted lipid panel, A1c, TSH; start on statin -PAULINA -CXR unremarkable -unable to tolerate Imdur, persistent DUNN GERD (gastroesophageal reflux disease) Hyperlipidemia -started on statin, noted lipid panel Hypertension -initially hypertensive, BP well controlled -on oral antihypertensives -continue to monitor vital signs IBS (irritable bowel syndrome) Nonischemic cardiomyopathy -f/u with Dr. Welsh -has pacemaker and AICD, no recent firing Surgical History S/P appendectomy S/P cholecystectomy S/P ICD (internal cardiac defibrillator) procedure Family History Mother Cancer Social History Smoking and tobacco status: never smoked Alcohol intake: former Lives independently: Yes Physical Exam Narrative: EXAM NARRATIVE: Head: Atraumatic Eyes: PERRL, conjunctiva without injection ENT: Mucous membrane moist NECK: Supple, ROM intact LUNGS: LCTAB, no crackles/rhonchi CV: RRR ABDOMEN: Soft, nontender in all quadrants EXTREMITY: Normal ROM in all extremities, 5/5 strength in all extremities, sensations intact in the b/l LEs SKIN: No rash or erythema NEURO: Awake and alert, no focal motor deficits PSYCH: Normal mood and affect : NO saddle anethesia BACK: mild midline L3-L5 tenderness to plpation Course Vital Signs: Vital signs: Vital Signs Temperature 98.9 F 07/05/21 10:25 Pulse Rate 58 L 07/05/21 12:00 Respiratory Rate 15 07/05/21 12:00 Blood Pressure 101/69 07/05/21 12:00 Pulse Oximetry 94 07/05/21 12:00 MDM - General Adult Differential Diagnosis: Differential Diagnosis: 55-year-old male presenting to the emergency room after an episode of fall which occurred 1 days ago. Patient has lower back and right hip pain. On exam, patient is hemodynamically stable with mild tenderness to palpation in the lower back and right hip. Range motion of the right hip intact. X-rays did not show any signs of acute fracture. Brain negative for any brain bleed. Patient tolerated the pain well with Tylenol, Toradol, and lidocaine patch patient is able ambulate without any difficulty. Rx: tylenol, lidocaine patch, norflex PRN pain Disposition: Dischage. Patient counseled regarding diagnostic impression, treatment plan. Patient given ED strict return precautions to return for continuation, worsening, or development of new symptoms. Instructed to f/u w/ PCP regarding symptoms today. Patient verbalized understanding. Patient aware of appts with PT, Ortho and PCP in the next few days and is expecting a giana from our case management associate. Imaging Data^: Other Imaging: Radiologist's impression: [address] [id number] ReportSigned Patient: Anid Yadav JRUnit #: [id number]: 1965Acct#:[id number]/Sex: 55 / MADM Date: 07/05/21Loc: ERRoom/Bed:Attending Dr: Ordering Provider/Ordering MD: Imelda Olmos MD Date of Service: 07/05/21 Procedure(s): XR hip RT 2-3V wo/w pel* 17584 Accession Number(s): [id number] Report Number: [id number] WS: [id number] Right hip, AP and and frog leg views, AP pelvis, 07/05/2021 Clinical Data: fx Comparison: None. Findings: No fractures or dislocations are seen. The right hip joint is intact. The soft tissues are not remarkable. The SI joints and pubic symphysis are unremarkable. There are phleboliths in the true pelvis. There are bilateral acetabular lips. 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 Tonnis classification: grade 1: sclerosis of femoral head and acetabulum or slight joint space narrowing or slight lipping at joint margins Dictated By:Yovana Campos MDSigned By:Yovana Campos MDSigned Date/Time:07/05/21 1051DD/ [address] [facility], [place] [address]DSmw ReportSigned Patient: Andi Yadav #: [id number]: 1965Acct#:[id number]/Sex: 55 / MADM Date: 07/05/21Loc: ERRoom/Bed:Attending Dr: Ordering Provider/Ordering MD: Imelda Olmos MD Date of Service: 07/05/21 Procedure(s): XR lumbar spine 2-3V* 51205 Accession Number(s): [id number] Report Number: [id number] WS: [id number] Lumbar spine, 3 views, 07/05/2021 Clinical Data: rule out fx Comparison: Lumbar spine, 03/19/2019. Findings: No compression fractures or subluxation is seen. No disc space narrowing is seen. The transverse processes and SI joints are normal. There is mild osteoarthritic spurring from T12-L1 into L3-L4. 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 Dictated By:Yovana Campos MDSigned By:Yovana Campos MDSigned Date/Time:07/05/21 1246DD/ [address], [place] [address]JI Scan ReportSigned Patient: Andi Yadav #: [id number]: 1965Acct#:[id number]/Sex: 55 / MADM Date: 07/05/21Loc: ERRoom/Bed:Attending Dr: Ordering Provider/Ordering MD: Imelda Olmos MD Date of Service: 07/05/21 Procedure(s): CT head wo con* 05193 Accession Number(s): [id number] Report Number: [id number] [facility] Final Radiology Report Call: [phone] Name: ANDI YADAV Age: 55Years M Date: 07/05/2021 SSN: [id number] : 1965 Study: CT HEAD WO Requesting Physician: IMELDA OLMOS Images: 227 Provided Clinical History: fell Procedure Accession CTDI Vol (mGy) DLP (mGy-cm) CT HEAD WO [id number] 1090.53 PROCEDURE INFORMATION: Exam: CT Head Without Contrast Exam date and time: 07/05/2021 10:15 AM Age: 55 years old Clinical indication: Injury or trauma; Fall; Blunt trauma (contusions or hematomas); Consciousness not specified; Injury date: 07/04/21; Injury details: Fell off ladder TECHNIQUE: Imaging protocol: Computed tomography of the head without contrast. Radiation optimization: All CT scans at this facility use at least one of these dose optimization techniques: automated exposure control; mA and/or kV adjustment per patient size (includes targeted exams where dose is matched to clinical indication); or iterative reconstruction. COMPARISON: CT head wo con* [id number] 10/06/2018 2:27 PM RADIATION DOSE METRICS: Total DLP (mGy-cm): 1090.53 FINDINGS: Brain: Flores white matter distinction is maintained throughout the brain. No radiographic evidence of intracranial hemorrhage. No CT evidence of mass hemorrhage or acute infarction. Cerebral ventricles: Ventricles are of normal size and configuration. Paranasal sinuses: Visualized sinuses are unremarkable. No fluid levels. Mastoid air cells: Visualized mastoid air cells are well aerated. Bones/joints: Unremarkable. No acute fracture. Soft tissues: Unremarkable. Other findings: No intra or extra-axial masses, lesions or collections. IMPRESSION: No acute intracranial process is appreciated. Thank you for allowing us to participate in the care of your patient. Dictated and Authenticated by: Efren Gomez MD 07/05/2021 12:33 PM Central Time ([place] & [place]) Dictated By:Efren Gomez MDSigned By:Efren Gomez MDSigned Date/Time:07/05/218DD/ 16 Discharge Plan Discharge Patient Disposition: Home Clinical Impression: Fall Condition: Stable Prescriptions: New acetaminophen 500 mg tablet 500 mg PO BID PRN (Reason: pain) 5 Days Qty: 10 RF: 0 orphenadrine citrate 100 mg tablet extended release 100 mg PO BID PRN (Reason: pain) 5 Days Qty: 10 RF: 0 lidocaine 5 % adhesive patch,medicated 1 patch topical DAILY PRN (Reason: pain) 10 Days Qty: 10 RF: 0 No Action clonazepam [Klonopin] 1 mg tablet 1 mg PO TID PRN (Reason: Anxiety) RF: 0 lisinopril 2.5 mg tablet 2.5 mg PO DAILY RF: 0 sotalol [Betapace] 120 mg tablet 120 mg PO BID RF: 0 magnesium oxide 500 mg capsule 500 mg PO DAILY RF: 0 Trintellix 5 mg tablet 5 mg PO BID RF: 0 aspirin 81 mg Tablet,Delayed Release (Dr/Ec) 81 mg PO DAILY RF: 0 oxycodone 15 mg Tablet 15 mg PO Q8H PRN (Reason: Pain) RF: 0 furosemide [Lasix] 20 mg tablet 20 mg PO QAM Qty: 30 RF: 5 potassium chloride 10 mEq capsule, extended release 10 meq PO DAILY Qty: 30 RF: 4 dicyclomine 20 mg tablet 20 mg PO QID Qty: 20 RF: 0 Zofran 4 mg tablet 4 mg PO Q6H PRN (Reason: nausea and vomiting) Qty: 20 RF: 0 hydroxyzine HCl 25 mg tablet 25 mg PO 6XD PRN (Reason: anxiety) Qty: 30 RF: 0 metformin 500 mg tablet 500 mg PO BID Qty: 60 RF: 0 Discharge Orders: Discharge ED (Routine); Ordered 07/05/21 Ordered By: Imelda Olmos Referrals: Tash Zimmerman DO [Primary Care Provider] - Discharge Diet: Advance as tolerated Discharge Activity: Resume usual activity Patient Instructions: Acute Low Back Pain (ED) Activity Restrictions/Additional Instructions: Please come back to the emergency room if your pain worsens, if you have any weakness in the legs, if you have any difficulty pooping or peeing, or if you have any new or concerning complaints. Our case management associate will have you follow-up with Orthopedics, physical therapy, and PCP in the next few days. You would be expected to have a phone call with our case management associate who will put you on the schedule. Stand Alone Forms: Work/School Release Coding Level of Care Code ED Branding Machine Operator for Suad Hicks
[2021-07-05] MEDS: lidocaine 5% Patch 1 PATCH TOPICAL (12:51)
[2021-07-05] MEDS: ketorolac 30 mg/mL INJ IM (12:53)
[2021-07-05] MEDS: acetaminophen 500 mg Tablet 1000 MG PO (12:57)
--- NOTE | 2021-07-06 12:04 | DCPLANNER ---
Addendum entered by Kamla Hernandez 11/03/21 14:19: Patient had a follow up appointment with Adolfo BARRY at ortho - patient did attend appointment. Addendum entered by Kamla Hernandez 07/06/21 12:38: senior catering sales manager also had message to speak with patient about getting established with a primary care physician. Case haydeelilli spoke with patient, he stated that he had a primary care physician, and does not need help with scheduling an appointment. Original Note: senior catering sales manager had message to schedule a follow up appointment for patient with ortho. senior catering sales manager did call the ortho clinic, spoke with Val, gave clinic patients information. senior catering sales manager was told that patients information would be printed and reviewed. Clinic will call patient with appointment information.
--- NOTE | 2021-07-14 13:47 | DCPLANNER ---
Patient has a follow up appointment scheduled for Sunday, July 18, 2021 at 10:00 with ASHA Agrawal at ortho. Clinic will call patient with appointment information.
== END 2021-07-05 13:23 | disposition home or self-care (01) ==
PROVIDERS: Emergency Provider Emergency Medicine; PCP Family Medicine
DX: M54.5 Low back pain (principal); W11.XXXA Fall on and from ladder, initial encounter; Z79.82 Long term (current) use of aspirin; Z79.84 Long term (current) use of oral hypoglycemic drugs; I11.0 Hypertensive heart disease with heart failure; I50.9 Heart failure, unspecified; E78.5 Hyperlipidemia, unspecified
CPT/HCPCS: 70450; 72100; 73502; 96372; 99283; J1885

== ENCOUNTER 2021-07-09 20:48 | Inpatient (IN) | payer MEDICARE, MEDICAID, SELFPAY ==
[2021-07-09 20:51] VITALS: BP 141/82; PULSE 77; RESP 16; TEMP 37.1; O2SAT 97; BMI 33.0
[2021-07-09 21:16] LABS: Basophils # 0.1 10^3/uL (0.0-0.1); Basophils % 0.7 %; Eosinophils # 0.2 10^3/uL (0.0-0.8); Eosinophils % 2.5 %; Hematocrit 41.7 % (42.0-52.0); Lymphocytes % 26.6 %; Mean Corpuscular HGB Conc 33.6 g/dL (30.0-36.0); Mean Corpuscular Hemoglobin 29.4 pg (28.0-34.0); Mean Corpuscular Volume 87.6 fl (80-94); Mean Platelet Volume 9.3 fL (7.4-10.4); Monocytes # 0.8 10^3/uL (0.2-0.9); Neutrophils # 4.58 10^3/uL (1.8-7.7); Neutrophils % 60.1 %; Nucleated Red Blood Cells % 0 %; Platelet Count 268 10^3/cmm (130-400); Red Blood Count 4.76 10^6/uL (4.1-5.3); Red Cell Distribution Width 13.4 % (12.1-15.1); White Blood Count 7.6 10^3/uL (4.0-10.0)
[2021-07-09] MEDS: ketorolac 30 mg/mL INJ IVP (21:21)
[2021-07-09] MEDS: orphenadrine 30 mg/mL Inj 2 mL 60 MG IVP (21:22)
[2021-07-09] MEDS: sodium chloride 0.9% 250 ML IV (21:24)
[2021-07-09] MEDS: acetaminophen 500 mg Tablet PO (21:24)
--- NOTE | 2021-07-09 21:35 | W.ED.GENADLT ---
HPI - General Adult General: Chief complaint: Psychiatric Symptoms Stated complaint: si Time Seen by Provider: 07/09/21 20:49 History of Present Illness: HPI narrative: HPI: [55]yo patient w/ hx of depression BIBA for SI. Patient tells me he wants to jump off a bridge because of the significant pain he experiences daily from his chronic injuries. On arrival, the patient is AAOx3 and cooperative with my evaluation. No focal complaints of chest pain, shortness of breath, palpitations, N/V, focal GI/ complaints. No complaints of hallucinations. Onset: chronic Duration: ongoing Location: home Severity: severe Review of Systems Narrative: Constitutional: No fever, no chills. HEENT: No vision changes CV: No chest pain, no palpitations PULM: No productive cough, no dyspnea. GI: No abdominal pain, no N/V/D. : No dysuria MSKEL: No muscle pain SKIN: No new rashes, no lesions. NEURO: No headache, no focal weakness. HEME: No visible bruises PSYCH: +Angry mood, +SI PFSH ED PFSH: Medical History Anxiety -f/u at [facility] -on Clonazepam ASHD (arteriosclerotic heart disease) Atrial fibrillation Remains in sinus rhythm. Continue current regimen CHF (congestive heart failure) -acute exacerbation, BNP-73 -Echo (05/2019): EF=61%, G1DD, trace MR, trace to mild TR, trace PA -not on chronic diuretics; on IV Lasix -daily weights, monitor Is & Os; total negative fluid balance of 3.2 L Depression Elevated troponin -noted troponins with 2-hr delta of 10.40, 6hr troponin lower with no significant delta -serial ECGs, so far, no acute ischemic changes -telemetry monitoring -has known hx of non-ischemic cardiomyopathy s/p pacemaker/AICD -had prior nuclear stress testing done in 05/2019 showing small sized reversible perfusion abnormality of mild severity of apical inferior and apical lateral doherty that may represent small area of ischemia in LAD territory -Cardiology evaluation by Dr. Mendoza appreciated; IV diuresis -VSS; continue to monitor -received dose of therapeutic lovenox, ASA 325 mg in ED -on ASA -Echo (05/2019): EF=61%, G1DD, trace MR, trace to mild TR, trace PA -noted lipid panel, A1c, TSH; start on statin -PAULINA -CXR unremarkable -unable to tolerate Imdur, persistent DUNN GERD (gastroesophageal reflux disease) Hyperlipidemia -started on statin, noted lipid panel Hypertension -initially hypertensive, BP well controlled -on oral antihypertensives -continue to monitor vital signs IBS (irritable bowel syndrome) Nonischemic cardiomyopathy -f/u with Dr. Welsh -has pacemaker and AICD, no recent firing Surgical History S/P appendectomy S/P cholecystectomy S/P ICD (internal cardiac defibrillator) procedure Family History Mother Cancer Social History Smoking and tobacco status: never smoked Alcohol intake: former Lives independently: Yes Physical Exam Narrative: EXAM NARRATIVE: Head: Atraumatic Eyes: PERRL, conjunctiva without injection, eyes tracking ENT: Mucous membrane moist NECK: Supple without lymphadenopathy LUNGS: LCTAB CV: RRR ABDOMEN: Soft, nontender EXTREMITY: Normal ROM SKIN: No rash or erythema NEURO: Awake and alert. No focal weakness PSYCH: Angry mood, combative with staff Course Vital Signs: Vital signs: Vital Signs Temperature 97.6 F 07/10/21 06:00 Pulse Rate 73 07/10/21 06:00 Respiratory Rate 16 07/10/21 11:38 Blood Pressure 101/61 07/10/21 06:00 Pulse Oximetry 98 07/10/21 06:00 MDM - General Adult MDM Narrative: Medical decision making narrative: [55]yo patient w/ hx of chronic pain presenting for SI with plan. HDS, exam within normal limit Thoughts are linear and organized, and the patient has no AH/VH, or HI. Clinically the patient displays no overt toxidrome; they are well appearing, with low suspicion for toxic ingestion given history and exam. Symptoms unlikely 2/2 anemia, hypothyroidism, infection, or ICH. Workup: CBC, CMP, Lipase, salicylate/tylenol Lab findings: wnl [10:30pm] On reassessment, labs and workup wnl. Patient is hemodynamically stable with no acute medical complaints. Case discussed with psychiatric provider Dr. Duckworth at [facility] psych inpatient with recommendation for admission Disposition: Psych Lab Data: Labs: Lab Results 07/09/21 07/09/21 21:10 21:10 WBC 7.6 10^3/uL 10^3/ uL (4.0-10.0) RBC 4.76 10^6/uL 10^6 /uL (4.1-5.3) Hgb 14.0 g/dL g/dL (11.7-16.6) Hct 41.7 % L % (42.0-52.0) MCV 87.6 fl fl (80-94) MCH 29.4 pg pg (28.0-34.0) MCHC 33.6 g/dL g/dL (30.0-36.0) RDW 13.4 % % (12.1-15.1) Plt Count 268 10^3/cmm 10^3 /cmm (130-400) MPV 9.3 fL fL (7.4-10.4) Neut % (Auto) 60.1 % % Lymph % (Auto) 26.6 % % [place] % (Auto) 10.0 % % Eos % (Auto) 2.5 % % Baso % (Auto) 0.7 % % Neut # (Auto) 4.58 10^3/uL 10^3 /uL (1.8-7.7) Lymph # (Auto) 2.0 10^3/uL 10^3/ uL (0.8-4.8) [place] # (Auto) 0.8 10^3/uL 10^3/ uL (0.2-0.9) Eos # (Auto) 0.2 10^3/uL 10^3/ uL (0.0-0.8) Baso # (Auto) 0.1 10^3/uL 10^3/ uL (0.0-0.1) Nucleated RBC % (a uto) 0 % % Nucleated RBCs # 0.0 /100WBC /100W BC Sodium 142 mmol/L mmol/L (136-145) Potassium 3.3 mmol/L L mmol /L (3.5-5.1) Chloride 109 mmol/L H mmol /L (98-107) Carbon Dioxide 23 mmol/L mmol/L (22-29) Anion Gap 13.3 (5-19) BUN 7 mg/dL mg/dL (6-20) Creatinine 0.7 mg/dL mg/dL (0.7-1.2) GFR Calculation 117.1 mL/min mL/m in (90-130) Glucose 129 mg/dL H mg/dL (65-115) Calculated Osmolal ity 294 mOsm/kg mOsm/ kg (285-295) Calcium 8.9 mg/dL mg/dL (8.5-10.5) Salicylates < 0.3 mg/dL L mg/ dL (3-10) Acetaminophen < 5.0 ug/mL L ug/ mL (10-30) Discharge Plan Discharge Patient Disposition: Admitted As Inpatient Admit Provider: Nikhil Duckworth Clinical Impression: Suicidal ideations Condition: Stable Discharge Diet: Advance as tolerated Discharge Activity: Resume usual activity Coding Level of Care Code ED Rn Recovery for Suad Hicks
[2021-07-09 21:36] LABS: Anion Gap 13.3 (5-19); Blood Urea Nitrogen 7 mg/dL (6-20); Calcium 8.9 mg/dL (8.5-10.5); Carbon Dioxide 23 mmol/L (22-29); Chloride 109 mmol/L (98-107); Glomerular Filtration Rate 117.1 mL/min (90-130); Glucose 129 mg/dL (65-115); Osmolality Calculated 294 mOsm/kg (285-295); Potassium 3.3 mmol/L (3.5-5.1); Sodium 142 mmol/L (136-145)
[2021-07-09 21:43] LABS: Acetaminophen < 5.0 ug/mL (10-30); Salicylate < 0.3 mg/dL (3-10)
[2021-07-09 21:50] VITALS: RESP 20
[2021-07-09] MEDS: morphine 4 mg/mL SDV 1 mL IVP ×2 (21:50→22:25)
--- NOTE | 2021-07-09 21:59 | PC.NURSE ---
report called to Hipolito Duke RN
[2021-07-09 22:25] VITALS: RESP 20
[2021-07-09 23:01] VITALS: BP 114/87; PULSE 61; RESP 19; TEMP 36.7; O2SAT 97
[2021-07-09 23:03] VITALS: RESP 20; TEMP 37.1; O2SAT 97
[2021-07-10 00:46] VITALS: RESP 20
[2021-07-10] MEDS: oxyCODONE 5 mg IR Tab/Cap 15 MG PO ×2 (00:46→09:23)
[2021-07-10] MEDS: CLONazepam 1 mg Tablet PO ×2 (00:46→09:23)
--- NOTE | 2021-07-10 00:50 | PC.NURSE ---
pt noted with increased anxiety and requested pain med for back pain rated 10/10. oxycodone 15mg po for pain and clonazepam 1mg po for anxiety given.
--- NOTE | 2021-07-10 01:27 | PC.NURSE ---
pt staed anxiety is now under control and pain is now rated 6/10.
[2021-07-10 06:00] VITALS: BP 101/61; PULSE 73; RESP 20; TEMP 36.4; O2SAT 98
[2021-07-10 07:07] LABS: Glucose Point of Care 106 mg/dL (70-110)
[2021-07-10] MEDS: aspirin 81 mg EC Tablet PO (09:20)
[2021-07-10] MEDS: sotalol 80 mg Tablet 120 MG PO (09:20)
[2021-07-10] MEDS: lisinopril 5 mg Tablet 2.5 MG PO (09:20)
[2021-07-10 09:23] VITALS: RESP 16
--- NOTE | 2021-07-10 09:25 | PC.NURSE ---
PRN KLONOPIN 1 MG GIVEN PO PER PT C/O GENERALIZED ANXIETY
--- NOTE | 2021-07-10 11:24 | P.SS_ITS ---
Short Stay Summary Providers Date of Admit/Discharge: 07/11/21 Attending Provider: Edgar Noe MD Primary Care Provider: Tash Zimmerman DO Chief Complaint: si HPI History of Present Illness Andi Garcia JR is a 55 year old male with a history of pain related to orthopedic issues and suicidal ideation when the pain is not controlled, admitted due to suicidal ideation related to what he says was a medication reaction. The ED note says: HPI: [55]yo patient w/ hx of depression BIBA for SI. Patient tells me he wants to jump off a bridge becaues of significant pain that is not controllable with 30mg of percocet daily. On arrival, the patient is AAOx3 and cooperative with my evaluation. No focal complaints of chest pain, shortness of breath, palpitations, N/V, focal GI/ complaints. No complaints of hallucinations. The patient says that he feels that the combination of medicines he took last night agitated him greatly. He thinks that the muscle relaxers did not agree with the opiates. He says when he got morphine in the ED, that also made him worse to. Now that the effects of the medication combination have worn off, he no longer feels agitated or suicidal. Home Meds/Allergies Home Medications and Allergies Home Medications Medication Instructions Recorded Confirmed Type clonazepam 1 mg tablet 1 mg PO TID PRN tab 02/24/20 07/09/21 History lisinopril 2.5 mg tablet 2.5 mg PO DAILY 02/24/20 07/09/21 History sotalol 120 mg tablet 120 mg PO BID 02/24/20 07/09/21 History magnesium oxide 500 mg capsule 500 mg PO DAILY 02/25/20 07/09/21 History aspirin 81 mg PO DAILY 04/30/20 07/09/21 History oxycodone 15 mg PO Q8H PRN 04/30/20 07/09/21 History Xigduo XR 1 tab PO BIDWM 07/10/21 07/10/21 History Allergies Allergy/AdvReac Type Severity Reaction Status Date / Time diazepam Allergy Unknown Unknown Verified 07/09/21 20:57 PFSH Acute PFSH: Medical History Anxiety -f/u at [facility] -on Clonazepam ASHD (arteriosclerotic heart disease) Atrial fibrillation Remains in sinus rhythm. Continue current regimen CHF (congestive heart failure) -acute exacerbation, BNP-73 -Echo (05/2019): EF=61%, G1DD, trace MR, trace to mild TR, trace KS -not on chronic diuretics; on IV Lasix -daily weights, monitor Is & Os; total negative fluid balance of 3.2 L Depression Elevated troponin -noted troponins with 2-hr delta of 10.40, 6hr troponin lower with no significant delta -serial ECGs, so far, no acute ischemic changes -telemetry monitoring -has known hx of non-ischemic cardiomyopathy s/p pacemaker/AICD -had prior nuclear stress testing done in 05/2019 showing small sized reversible perfusion abnormality of mild severity of apical inferior and apical lateral doherty that may represent small area of ischemia in LAD territory -Cardiology evaluation by Dr. Mendoza appreciated; IV diuresis -VSS; continue to monitor -received dose of therapeutic lovenox, ASA 325 mg in ED -on ASA -Echo (05/2019): EF=61%, G1DD, trace MR, trace to mild TR, trace KS -noted lipid panel, A1c, TSH; start on statin -PAULINA -CXR unremarkable -unable to tolerate Imdur, persistent DUNN GERD (gastroesophageal reflux disease) Hyperlipidemia -started on statin, noted lipid panel Hypertension -initially hypertensive, BP well controlled -on oral antihypertensives -continue to monitor vital signs IBS (irritable bowel syndrome) Nonischemic cardiomyopathy -f/u with Dr. Welsh -has pacemaker and AICD, no recent firing Surgical History S/P appendectomy S/P cholecystectomy S/P ICD (internal cardiac defibrillator) procedure Family History Mother Cancer Social History Smoking and tobacco status: never smoked Alcohol intake: former Lives independently: Yes Vitals/I&O/Wt Last Vital Signs Temp 97.6 F 07/10/21 06:00 Pulse 73 07/10/21 06:00 Resp 16 07/10/21 09:23 BP 101/61 07/10/21 06:00 Pulse Ox 98 07/10/21 06:00 0907/10/21 07/10/21 22:59 06:59 14:59 Intake Total 250 / 250 Balance 250 / 250 Weight last 48 hrs Weight 113.398 kg Hospital Course Hospital Course On the unit he was calm and cooperative. He became antsy and eager to leave. He was able to contract for safety prior to discharge. During the hospitalization, patient had routine laboratory studies which were within normal limits except for few outliers. Additionally there was a general medical evaluation which was also within normal limits and revealed no new acute processes. Discharge Summary At the time of discharge, psychosis and lethality were denied. Mood and anxiety were well managed. Patient endorsed a plan to avoid all drugs of abuse and follow-up with the aftercare recommendations of the treatment team. Patient was evaluated and deemed to be absent credible lethality, and had achieved the maximum benefit from an inpatient hospitalization, so was discharged. SSS Data Data Completed and Pending: Pending at discharge Category Date Time Status Drug Screen, Dennysin e Stat Lab 07/09/21 20:55 Uncollected Diagnoses at Discharge Discharge Diagnosis (1) Suicidal ideation: Status: Resolved (2) Opioid withdrawal: Status: Suspected (3) Alcohol use disorder: Status: Chronic (4) Fall: Status: Resolved Discharge Plan Discharge Patient Disposition: Home Condition: Stable Prescriptions: Continued clonazepam [Klonopin] 1 mg tablet 1 mg PO TID PRN (Reason: Anxiety) RF: 0 lisinopril 2.5 mg tablet 2.5 mg PO DAILY RF: 0 sotalol [Betapace] 120 mg tablet 120 mg PO BID RF: 0 magnesium oxide 500 mg capsule 500 mg PO DAILY RF: 0 aspirin 81 mg Tablet,Delayed Release (Dr/Ec) 81 mg PO DAILY RF: 0 oxycodone 15 mg Tablet 15 mg PO Q8H PRN (Reason: Pain) RF: 0 Xigduo XR 10-500 mg Tablet, Ir - Er, Biphasic 24hr 1 tab PO BIDWM RF: 0 Discontinued tizanidine 4 mg Tablet 4 mg PO TID PRN (Reason: Muscle Pain) RF: 0 Discharge Orders: Discharge Order (Routine); Ordered 07/10/21 Ordered By: Edgar Noe Referrals: Tash Zimmerman DO [Primary Care Provider] - Discharge Diet: Advance as tolerated Discharge Activity: Resume usual activity Patient Instructions: Suicide Prevention for Adults (DC), Opioid Safety Attestations Medical Necessity Statement*: Psychiatric hospitalization is medically necessary to prevent access to lethal means, to reevaluate medication, and to coordinate a safe discharge. Time Spent in Patient Care*: greater than 30 min Specific Discharge Activities: Specific discharge activities: educating patient, discussing with pcp/other providers, discussing with pillowcase cutter/social workers/dc planners, documenting/other paperwork and evaluating patient/reviewing data Status at Discharge: Cognitive status at discharge: cognitively intact , Behavioral status at discharge: cooperative and independent in ADL's , Functional status at discharge: independent ambulation Overall status at discharge: patient is back to baseline Quality Metrics Clinical Quality Measures: During this hospital stay, did patient experience: None Coding Level of Care Code Acute Manager Intensive Care for Trippg Fwd Diagnoses Suicidal ideation R45.851 Opioid withdrawal F11.23 Alcohol use disorder Fall W19.XXXA
[2021-07-10 11:28] LABS: Glucose Point of Care 101 mg/dL (70-110)
[2021-07-10 11:38] VITALS: RESP 16
== END 2021-07-10 11:59 | disposition home or self-care (01) | DRG 897 ==
LOC: ER 21:23 → NP 07-10 11:30
PROVIDERS: Admitting Provider Psychiatry & Neurology Psychiatry; Emergency Provider Emergency Medicine; PCP Family Medicine; Visit Provider Psychiatry & Neurology Psychiatry
DX: F11.23 Opioid dependence with withdrawal (principal); I42.8 Other cardiomyopathies; F32.9 Major depressive disorder, single episode, unspecified; T40.2X5A Adverse effect of other opioids, initial encounter; F41.9 Anxiety disorder, unspecified; I25.10 Atherosclerotic heart disease of native coronary artery without angina pectoris; I48.91 Unspecified atrial fibrillation; I50.9 Heart failure, unspecified; I11.0 Hypertensive heart disease with heart failure; K21.9 Gastro-esophageal reflux disease without esophagitis; E78.5 Hyperlipidemia, unspecified; Z95.810 Presence of automatic (implantable) cardiac defibrillator; F10.21 Alcohol dependence, in remission; Z79.82 Long term (current) use of aspirin; G89.29 Other chronic pain
CPT/HCPCS: 36416; 80048; 80307; 82962; 85025; 96361; 96374; 96375; 97165; 99285; G0378; J1885; J2270; J2360; J3490; J7050

== ENCOUNTER 2022-02-13 05:49 | Emergency (ER) | payer MEDICARE, MEDICAID, SELFPAY ==
[2022-02-13 05:56] VITALS: BP 111/76; PULSE 66; RESP 16; TEMP 36.6; O2SAT 95; BMI 33.7
--- NOTE | 2022-02-13 06:02 | XRR_ITS ---
PROCEDURE INFORMATION: Exam: XR Chest Exam date and time: 02/13/2022 6:22 AM Age: 56 years old Clinical indication: Angina; Prior surgery; Surgery date: 6+ months; Surgery type: Pacemaker; Patient HX: Chest pain x 2 days; Additional info: Atrial fib TECHNIQUE: Imaging protocol: XR of the chest. Views: 1 view. Total images: 1 COMPARISON: CR XR chest 1V portable [id number] 04/30/2020 4:44 AM FINDINGS: Tubes, catheters and devices: AICD projects in satisfactory location. Lungs: Unremarkable. No consolidation. Pleural spaces: Unremarkable. No pleural effusion. No pneumothorax. Heart/Mediastinum: Unremarkable. No cardiomegaly. Bones/joints: Orthopedic hardware noted from previous left clavicular fracture unchanged. XR/XR chest 1V portable [id number] IMPRESSION: No acute cardiopulmonary process.
--- NOTE | 2022-02-13 06:02 | ECG_ITS ---
[facility] Test Date: 2022-02-13 Pat Name: Andi Garcia Department: Room: Gender: Male Bronzer: : 1965 Requested By: Brayden Berger Order Number: [id number] Karen MD: Fidel Cheatham M.D. Measurements Intervals [place] Rate: 67 P: 60 SD: 178 QRS: 50 QRSD: 113 T: 53 QT: 413 QTc: 437 Interpretive Statements SINUS RHYTHM MODERATE INTRAVENTRICULAR CONDUCTION DELAY [110+ ms QRS DURATION] Compared to ECG 08/30/2020 20:35:14 No significant changes Electronically Signed On 02-13-2022 20:50:14 CDT by Fidel Cheatham M.D. [id number]
--- NOTE | 2022-02-13 06:03 | ED_ITS ---
HPI - Arrhythmia/Palpitations General: Chief Complaint: Arrhythmia/Palpitations Stated Complaint: Afib Time Seen by Provider: 02/13/22 06:01 Source: patient Mode of arrival: ambulatory Limitations: no limitations History of Present Illness: 56-year-old male presents emergency room complaining of irregular heart rate and feeling tired. States his palpitations and intermittent racing of his heart. He had does take sotalol for A. fib and he has also had an internal pacemaker defibrillator placed. He is not had any defibrillations. He denies any chest pain just complains of racing heart intermittently is not having any symptoms at this time. He states it began yesterday and has been intermittent. Nothing seems to exacerbate or relieve. MD complaint: rapid heart beat, heart racing and irregular heart beat Onset (ago): day(s) (1) Duration: intermittent Severity: mild Context: occurred during rest Arrhythmia history: atrial fibrillation Associated symptoms: Reports anxiety; Deny nausea or vomiting Treatments prior to arrival: beta-lavern Review of Systems Const: Denies: fever(s), chills, body aches, change in appetite, fatigue or malaise ENMT: Denies: throat pain, ear or mastoid pain, nasal discharge or nasal congestion Card: Reports: chest pain, palpitations and irregular heart rhythm; Denies: edema, swelling of feet/ankles, dyspnea on exertion or orthopnea Resp: Denies: dyspnea, productive cough or non-productive cough GI: Denies: abdominal pain, nausea, vomiting, hematemesis, coffee ground emesis, diarrhea, constipation, bloating, hematochezia or melena : Denies: flank pain, difficulty urinating, dysuria, urinary frequency or urinary urgency Musc: Denies: neck pain or back pain Skin/Breast: Denies: rash or pruritus Psych: Reports: anxiety PFSH ED PFSH: Medical History Anxiety -f/u at [facility] [place] -on Clonazepam ASHD (arteriosclerotic heart disease) Atrial fibrillation Remains in sinus rhythm. Continue current regimen CHF (congestive heart failure) -acute exacerbation, BNP-73 -Echo (05/2019): EF=61%, G1DD, trace MR, trace to mild TR, trace NM -not on chronic diuretics; on IV Lasix -daily weights, monitor Is & Os; total negative fluid balance of 3.2 L Depression Elevated troponin -noted troponins with 2-hr delta of 10.40, 6hr troponin lower with no signif icant delta -serial ECGs, so far, no acute ischemic changes -telemetry monitoring -has known hx of non-ischemic cardiomyopathy s/p pacemaker/AICD -had prior nuclear stress testing done in 05/2019 showing small sized reversible perfusion abnormality of mild severity of apical inferior and apical lateral doherty that may represent small area of ischemia in LAD territory -Cardiology evaluation by Dr. Mendoza appreciated; IV diuresis -VSS; continue to monitor -received dose of therapeutic lovenox, ASA 325 mg in ED -on ASA -Echo (05/2019): EF=61%, G1DD, trace MR, trace to mild TR, trace NM -noted lipid panel, A1c, TSH; start on statin -PAULINA -CXR unremarkable -unable to tolerate Imdur, persistent DUNN GERD (gastroesophageal reflux disease) Hyperlipidemia -started on statin, noted lipid panel Hypertension -initially hypertensive, BP well controlled -on oral antihypertensives -continue to monitor vital signs IBS (irritable bowel syndrome) Ingrown toenail of right foot with infection Nonischemic cardiomyopathy -f/u with Dr. Welsh -has pacemaker and AICD, no recent firing Surgical History S/P appendectomy S/P cholecystectomy S/P ICD (internal cardiac defibrillator) procedure Family History Mother Cancer Social History Smoking and tobacco status: never smoked Alcohol intake: former Lives independently: Yes Physical Exam Const: COMMON NORMALS: no acute distress GENERAL APPEARANCE: cooperative and comfortable ORIENTATION/CONSCIOUSNESS: Yes awake, Yes oriented to person, Yes oriented to place and Yes oriented to time HENMT: COMMON NORMALS: normocephalic, atraumatic, hearing grossly normal bilaterally, external ears normal, EAC's normal, TM's normal bilaterally, Normal nasal mucous membranes and turbinates present, moist oral mucous membranes and oropharynx normal HEAD & SCALP: normocephalic and atraumatic NOSE: Normal nasal mucous membranes and turbinates present EXTERNAL EAR: Yes external ears normal EXTERNAL AUDITORY CANAL: EAC's normal TYMPANIC MEMBRANE: TM's normal bilaterally Neck/C-Spine: COMMON NORMALS: no JVD Resp: COMMON NORMALS: normal respiratory effort, No retractions, No use of accessory muscles and clear to auscultation bilaterally AUSCULTATION: clear to auscultation bilaterally Cardio: COMMON NORMALS: no JVD, regular rate, regular rhythm and No murmurs present (Cardio) RATE: regular rate RHYTHM: regular rhythm GI: COMMON NORMALS: Soft to palpation and No hepatosplenomegaly present AUSCULTATION: Yes normoactive bowel sounds PALPATION: Yes Soft to palpation, No Tenderness to palpation present (GI), No Guarding due to palpation present (GI) and Yes No hepatosplenomegaly present Extremity: COMMON NORMALS: normal to inspection, capillary refill normal, no clubbing, cyanosis or edema, no calf tenderness and no pedal edema Neuro: SENSORIUM/ORIENTATION: Yes oriented to person, Yes oriented to place and Yes oriented to time Skin: COMMON NORMALS: no rashes or lesions noted GENERAL SKIN EXAM: no rashes or lesions noted Course Vital Signs: Vital signs: Vital Signs Temperature 97.8 F 02/13/22 05:56 Pulse Rate 66 02/13/22 08:02 Respiratory Rate 16 02/13/22 08:02 Blood Pressure 102/71 02/13/22 08:02 Pulse Oximetry 98 02/13/22 08:02 MDM - Arrhythmia/Palpitations Medical Decision Making Labs and imaging reviewed. His rate remains bradycardic during all times here troponins are negative EKG is not paced at this time does not show anything acute. No sign of overt congestive heart failure. Will discharge patient home same medications set up for Holter monitor follow-up with cardiology return if has problems. Medical Records I reviewed the patient's medical records. Lab Data I reviewed the patient's lab results. : 02/13/22 06:04 02/13/22 06:04 Radiology Impressions Chest X-Ray 02/13/22 06:02 IMPRESSION: No acute cardiopulmonary process. Laboratory Results WBC 8.3 10^3/uL (4.0-10.0) 02/13/22 06:04 RBC 5.55 10^6/uL (4.1-5.3) H 02/13/22 06:04 Hgb 16.1 g/dL (11.7-16.6) 02/13/22 06:04 Hct 48.3 % (42.0-52.0) 02/13/22 06:04 MCV 87.0 fl (80-94) 02/13/22 06:04 MCH 29.0 pg (28.0-34.0) 02/13/22 06:04 MCHC 33.3 g/dL (30.0-36.0) 02/13/22 06:04 RDW 12.3 % (12.1-15.1) 02/13/22 06:04 Plt Count 290 10^3/cmm (130-400) 02/13/22 06:04 MPV 9.6 fL (7.4-10.4) 02/13/22 06:04 Neut % (Auto) 51.4 % 02/13/22 06:04 Lymph % (Auto) 30.6 % 02/13/22 06:04 Peach % (Auto) 11.1 % 02/13/22 06:04 Eos % (Auto) 5.8 % 02/13/22 06:04 Baso % (Auto) 0.7 % 02/13/22 06:04 Neut # (Auto) 4.26 10^3/uL (1.8-7.7) 02/13/22 06:04 Lymph # (Auto) 2.5 10^3/uL (0.8-4.8) 02/13/22 06:04 Peach # (Auto) 0.9 10^3/uL (0.2-0.9) 02/13/22 06:04 Eos # (Auto) 0.5 10^3/uL (0.0-0.8) 02/13/22 06:04 Baso # (Auto) 0.1 10^3/uL (0.0-0.1) 02/13/22 06:04 Nucleated RBC % (auto) 0 % 02/13/22 06:04 Nucleated RBCs # 0.0 /100WBC 02/13/22 06:04 Sodium 135 mmol/L (136-145) L 02/13/22 06:04 Potassium 4.1 mmol/L (3.5-5.1) 02/13/22 06:04 Chloride 101 mmol/L (98-107) 02/13/22 06:04 Carbon Dioxide 25 mmol/L (22-29) 02/13/22 06:04 Anion Gap 13.1 (5-19) 02/13/22 06:04 BUN 11 mg/dL (6-20) 02/13/22 06:04 Creatinine 1.0 mg/dL (0.7-1.2) 02/13/22 06:04 GFR Calculation 77.3 mL/min (90-130) L 02/13/22 06:04 Glucose 125 mg/dL (65-115) H 02/13/22 06:04 Calculated Osmolality 281 mOsm/kg (285-295) L 02/13/22 06:04 Calcium 8.2 mg/dL (8.5-10.5) L 02/13/22 06:04 Total Bilirubin 0.9 mg/dL (0.15-1.2) 02/13/22 06:04 AST 17 U/L (0-40) 02/13/22 06:04 ALT 15 U/L (0-41) 02/13/22 06:04 Alkaline Phosphatase 97 IU/L (40-130) 02/13/22 06:04 Troponin T Baseline 10 ng/L (0-15) 02/13/22 06:04 Troponin T 120 Minute 9.83 ng/L (0-15) 02/13/22 07:53 Delta Troponin T -0.17 ABS# (0-10) L 02/13/22 07:53 NT-Pro-B Natriuret Pep 89 pg/mL (0-125) 02/13/22 06:04 Total Protein 6.6 g/dL (6.6-8.7) 02/13/22 06:04 Albumin 4.4 g/dL (3.5-5.2) 02/13/22 06:04 Globulin 2.2 g/dL (1.3-4.6) 02/13/22 06:04 Discharge Plan Discharge Patient Disposition: Home Clinical Impression: Palpitations, S/P ICD (internal cardiac defibrillator) procedure, ASHD (arteriosclerotic heart disease), Atrial fibrillation Condition: Stable Prescriptions: No Action clonazepam [Klonopin] 1 mg tablet 1 mg PO TID PRN (Reason: Anxiety) 0RF sotalol [Betapace] 120 mg tablet 120 mg PO BID 0RF magnesium oxide 500 mg capsule 500 mg PO DAILY 0RF aspirin 81 mg Tablet,Delayed Release (Dr/Ec) 81 mg PO DAILY 0RF oxycodone 15 mg Tablet 15 mg PO QID PRN (Reason: Pain) 0RF Xigduo XR 10-500 mg Tablet, Ir - Er, Biphasic 24hr 1 tab PO DAILY 0RF testosterone cypionate 200 mg/mL oil 200 mg IM Q28D 0RF zolpidem 10 mg tablet 10 mg PO BEDTIME PRN (Reason: Insomnia) 0RF albuterol sulfate 90 mcg/actuation HFA aerosol inhaler 2 puff INHALATION Q4H PRN (Reason: Shortness Of Breath) 0RF fluticasone propionate 50 mcg/actuation spray,suspension 1 spray INTRANASAL DAILY PRN (Reason: Nasal Congestion) 0RF Discharge Orders: Discharge ED (Routine); Ordered 02/13/22 Ordered By: Brayden Gates Referrals: Tash Zimmerman, [Primary Care Provider] - Discharge Diet: Usual diet Discharge Activity: Limit activity as instructed Activity Restrictions/Additional Instructions: Case management will call to make arrangements for you to have a 24-hour Holter monitor. Continue take all of your previously prescribed medications contact cardiology to have a follow-up appointment with them within the next week. Turn if you have any further problems. Coding Level of Care Code ED Order Department Supervisor for Suad Fwjennifer Exam Comprehensive
[2022-02-13 06:08] VITALS: BP 110/80; PULSE 66; RESP 16; O2SAT 94
[2022-02-13 06:15] VITALS: BP 106/60; PULSE 66; RESP 17; O2SAT 94
[2022-02-13 06:20] LABS: Basophils # 0.1 10^3/uL (0.0-0.1); Basophils % 0.7 %; Eosinophils # 0.5 10^3/uL (0.0-0.8); Eosinophils % 5.8 %; Hematocrit 48.3 % (42.0-52.0); Hemoglobin 16.1 g/dL (11.7-16.6); Lymphocytes # 2.5 10^3/uL (0.8-4.8); Lymphocytes % 30.6 %; Mean Corpuscular HGB Conc 33.3 g/dL (30.0-36.0); Mean Platelet Volume 9.6 fL (7.4-10.4); Monocytes # 0.9 10^3/uL (0.2-0.9); Monocytes % 11.1 %; Neutrophils # 4.26 10^3/uL (1.8-7.7); Neutrophils % 51.4 %; Nucleated Red Blood Cells % 0 %; Platelet Count 290 10^3/cmm (130-400); Red Blood Count 5.55 10^6/uL (4.1-5.3); Red Cell Distribution Width 12.3 % (12.1-15.1); White Blood Count 8.3 10^3/uL (4.0-10.0)
[2022-02-13 06:31] VITALS: BP 105/67; PULSE 60; RESP 16; O2SAT 94
[2022-02-13 06:40] LABS: Troponin(5th) Baseline 10 ng/L (0-15)
[2022-02-13 06:49] LABS: Alanine Aminotransferase 15 U/L (0-41); Albumin Level 4.4 g/dL (3.5-5.2); Alkaline Phosphatase 97 IU/L (40-130); Aspartate Amino Transferase 17 U/L (0-40); Blood Urea Nitrogen 11 mg/dL (6-20); Calcium 8.2 mg/dL (8.5-10.5); Carbon Dioxide 25 mmol/L (22-29); Chloride 101 mmol/L (98-107); Globulin 2.2 g/dL (1.3-4.6); Glomerular Filtration Rate 77.3 mL/min (90-130); Glucose 125 mg/dL (65-115); NT Pro B Type Natriuretic Pept 89 pg/mL (0-125); Osmolality Calculated 281 mOsm/kg (285-295); Sodium 135 mmol/L (136-145); Total Bilirubin 0.9 mg/dL (0.15-1.2); Total Protein 6.6 g/dL (6.6-8.7)
[2022-02-13 06:50] LABS: Anion Gap 13.1 (5-19); Potassium 4.1 mmol/L (3.5-5.1)
[2022-02-13 08:02] VITALS: BP 102/71; PULSE 66; RESP 16; O2SAT 98
--- NOTE | 2022-02-13 08:02 | ECG_ITS ---
[facility] Test Date: 2022-02-13 Pat Name: Andi Garcia Department: Room: Gender: Male Failure Analysis Engineer: : 1965 Requested By: Brayden Berger Order Number: [id number] Karen MD: Fidel Cheatham M.D. Measurements Intervals [place] Rate: 62 P: 46 IN: 195 QRS: 53 QRSD: 112 T: 45 QT: 418 QTc: 425 Interpretive Statements SINUS RHYTHM MODERATE INTRAVENTRICULAR CONDUCTION DELAY [110+ ms QRS DURATION] Compared to ECG 02/13/2022 05:54:56 ST (T wave) deviation now present Electronically Signed On 02-13-2022 20:55:30 CDT by Fdiel Cheatham M.D. [id number]
[2022-02-13 08:21] LABS: Troponin 5 2HR 9.83 ng/L (0-15)
[2022-02-13 08:38] LABS: Troponin 5 2HR Delta -0.17 ABS# (0-10)
--- NOTE | 2022-02-13 16:37 | DCPLANNER ---
Addendum entered by Kamla Hernandez 06/06/22 12:25: Patient had a follow up appointment scheduled for 04.05.22 with heart care - patient did not attend appointment. Addendum entered by Kamla Hernandez 03/09/22 19:28: Patient had a follow up appointment scheduled for 02.19.22 with heart care for a 48 hour monitor - patient did not attend appointment. Addendum entered by Kamla Hernandez 02/15/22 09:38: Patient has a an appointment for a 48 hour halter monitor on Saturday, February 19, 2022 at 11:00. Clinic will call patient with appointment information. Patient has a follow up appointment scheduled for March at 3:[address] Mccarthy. Clinic will call patient with appointment information. Addendum entered by Kamla Hernandez 02/13/22 16:47: it systems manager also had a message to schedule a follow up appointment for patient with heart care. it systems manager sent patients information to the front office staff at [facility]. Clinic will call patient with appointment information. Original Note: it systems manager had message to schedule a follow up appointment for patient with heart care for a 48 hour halter monitor. it systems manager faxed signed order to heart [facility], who will call patient with appointment information.
== END 2022-02-13 09:07 | disposition home or self-care (01) ==
PROVIDERS: Emergency Provider Family Medicine; PCP Family Medicine
DX: I48.91 Unspecified atrial fibrillation (principal); Z09 Encounter for follow-up examination after completed treatment for conditions other than malignant neoplasm; Z95.810 Presence of automatic (implantable) cardiac defibrillator; I25.10 Atherosclerotic heart disease of native coronary artery without angina pectoris; Z79.891 Long term (current) use of opiate analgesic; Z79.82 Long term (current) use of aspirin
CPT/HCPCS: 71045; 80053; 83880; 84484; 85025; 93005; 99284

== ENCOUNTER 2022-03-23 02:55 | Emergency (ER) | payer MEDICARE, MEDICAID, SELFPAY ==
[2022-03-23 03:00] VITALS: BP 119/74; PULSE 89; RESP 18; TEMP 36.7; O2SAT 95; BMI 33.0
--- NOTE | 2022-03-23 03:06 | ECG_ITS ---
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 Measurements Intervals [place] Rate: 81 P: 62 KS: 182 QRS: 71 QRSD: 110 T: 73 QT: 370 QTc: 431 Interpretive Statements SINUS RHYTHM Compared to ECG 02/13/2022 08:00:11 Intraventricular conduction delay no longer present Electronically Signed On 03-23-2022 17:00:34 CDT by Fidel Cheatham M.D. [id number]
--- NOTE | 2022-03-23 03:06 | CTR_ITS ---
PROCEDURE INFORMATION: Exam: CT Abdomen And Pelvis Without Contrast Exam date and time: 03/23/2022 3:30 AM Age: 56 years old Clinical indication: Abdominal pain; Right; Prior surgery; Surgery type: Gb. Appy; Patient HX: C/O RT flank pain; Additional info: Right flank pain TECHNIQUE: Imaging protocol: Computed tomography of the abdomen and pelvis without contrast. Radiation optimization: All CT scans at this facility use at least one of these dose optimization techniques: automated exposure control; mA and/or kV adjustment per patient size (includes targeted exams where dose is matched to clinical indication); or iterative reconstruction. COMPARISON: CT abdomen pelvis w con* [id number] 04/28/2019 7:12 AM RADIATION DOSE METRICS: Total DLP (mGy-cm): 2030.92 FINDINGS: Heart: Stable cardiomediastinal silhouette. Pacemaker leads noted. Liver: Unchanged subcentimeter hypodense lesions in the left hepatic lobe, likely representing cysts or hemangiomas. No cirrhotic features identified. Gallbladder and bile ducts: The gallbladder has been surgically removed. Pancreas: Normal. No ductal dilation. Spleen: Small accessory splenules noted in the left upper quadrant. Adrenal glands: Normal. No mass. Kidneys and ureters: Interval increase in size of 2.3 cm cortical cyst and 1.5 cm parapelvic cyst in the left kidney. No hydronephrosis or nephrolithiasis. Stomach and bowel: Unremarkable. No obstruction. No mucosal thickening. Appendix: There has been an appendectomy. Intraperitoneal space: Unremarkable. No free air. No significant fluid collection. Vasculature: Unremarkable. No abdominal aortic aneurysm. Lymph nodes: Unremarkable. No enlarged lymph nodes. Urinary bladder: Unremarkable as visualized. Reproductive: Unremarkable as visualized. Bones/joints: Unremarkable. No acute fracture. Soft tissues: Small fat containing umbilical and right inguinal hernias noted. CT/CT kidney stone [id number] IMPRESSION: No acute intra-abdominal or intrapelvic pathology.
--- NOTE | 2022-03-23 03:06 | XRR_ITS ---
PROCEDURE INFORMATION: Exam: XR Chest Exam date and time: 03/23/2022 3:15 AM Age: 56 years old Clinical indication: Shortness of breath; Prior surgery; Surgery type: Pacemaker. Clavicular fixation; Patient HX: C/O SOB. History of chf. TECHNIQUE: Imaging protocol: XR of the chest. Views: 1 view. COMPARISON: CR (CHEST, ) 02/13/2022 6:22 AM FINDINGS: Tubes, catheters and devices: A cardiac pacing device is again seen projecting over the left chest. Lungs: Mildly increased lung markings, which may be secondary to low lung volumes or mild pulmonary congestion. No consolidation. Pleural spaces: Unremarkable. No pleural effusion. No pneumothorax. Heart/Mediastinum: Stable cardiomediastinal silhouette. Bones/joints: Left clavicle ORIF hardware noted. Degenerative changes of the spine seen. XR/XR chest 1V portable [id number] IMPRESSION: Low lung volumes versus mild pulmonary congestion.
--- NOTE | 2022-03-23 03:07 | W.ED.ABDPA2 ---
HPI - Abdominal Pain General: Chief Complaint: Abdominal Pain Stated Complaint: R flank pian Time Seen by Provider: 03/23/22 02:57 Source: patient Mode of arrival: ambulatory Limitations: no limitations History of Present Illness: 56-year-old male states he been having right upper quadrant abdominal pain along with right flank pain. He states that he is feels like he is got a sharp pain in his back that wraps around to his abdomen. States that pain is been going on for 3 weeks with no worsening or improving factors. States pain is currently an 8 out of 10 he has had some nausea denies vomiting denies fever denies any chest pain or shortness of breath. Associated Symptoms: Denies chills and fever(s) Review of Systems Const: Denies: fever(s), chills, body aches or change in appetite Eyes: Denies: blurry vision or eye discomfort ENMT: Denies: throat pain or dental pain Card: Denies: chest pain Resp: Denies: dyspnea GI: Reports: abdominal pain : Reports: flank pain Musc: Reports: back pain Skin/Breast: Denies: rash Neuro: Denies: headache(s) Psych: Denies: depression Jacques/Lymph: Denies: easy bruising All/Imm: Denies: urticaria PFSH ED PFSH: Medical History Anxiety -f/u at [facility] -on Clonazepam ASHD (arteriosclerotic heart disease) Atrial fibrillation Remains in sinus rhythm. Continue current regimen CHF (congestive heart failure) -acute exacerbation, BNP-73 -Echo (05/2019): EF=61%, G1DD, trace MR, trace to mild TR, trace AR -not on chronic diuretics; on IV Lasix -daily weights, monitor Is & Os; total negative fluid balance of 3.2 L Depression Elevated troponin -noted troponins with 2-hr delta of 10.40, 6hr troponin lower with no significant delta -serial ECGs, so far, no acute ischemic changes -telemetry monitoring -has known hx of non-ischemic cardiomyopathy s/p pacemaker/AICD -had prior nuclear stress testing done in 05/2019 showing small sized reversible perfusion abnormality of mild severity of apical inferior and apical lateral doherty that may represent small area of ischemia in LAD territory -Cardiology evaluation by Dr. Mendoza appreciated; IV diuresis -VSS; continue to monitor -received dose of therapeutic lovenox, ASA 325 mg in ED -on ASA -Echo (05/2019): EF=61%, G1DD, trace MR, trace to mild TR, trace AR -noted lipid panel, A1c, TSH; start on statin -PAULINA -CXR unremarkable -unable to tolerate Imdur, persistent DUNN GERD (gastroesophageal reflux disease) Hyperlipidemia -started on statin, noted lipid panel Hypertension -initially hypertensive, BP well controlled -on oral antihypertensives -continue to monitor vital signs IBS (irritable bowel syndrome) Ingrown toenail of right foot with infection Nonischemic cardiomyopathy -f/u with Dr. Welsh -has pacemaker and AICD, no recent firing Surgical History S/P appendectomy S/P cholecystectomy S/P ICD (internal cardiac defibrillator) procedure Family History Mother Cancer Social History Smoking and tobacco status: never smoked Alcohol intake: former Lives independently: Yes Physical Exam Const: COMMON NORMALS: no acute distress, patient oriented x3 and healthy appearing HENMT: COMMON NORMALS: normocephalic and atraumatic HEAD & SCALP: normocephalic and atraumatic Eye: COMMON NORMALS: Equal, round and reactive pupils present and EOMs intact bilaterally PUPIL: Yes Equal, round and reactive pupils present Neck/C-Spine: COMMON NORMALS: full ROM and supple Chest: COMMONS NORMALS: normal inspection of the chest and normal palpation of entire chest wall Resp: COMMON NORMALS: normal respiratory effort, No retractions, No use of accessory muscles and clear to auscultation bilaterally AUSCULTATION: clear to auscultation bilaterally Cardio: COMMON NORMALS: regular rate, regular rhythm and No murmurs present (Cardio) RATE: regular rate RHYTHM: regular rhythm GI: COMMON NORMALS: Normal to inspection, nondistended, normoactive bowel sounds present, Soft to palpation, non-tender and no masses PALPATION: Yes Soft to palpation Back/Pelvis: OTHER: tenderness over right middle back Extremity: COMMON NORMALS: normal to inspection and full ROM Neuro: COMMON NORMALS: patient oriented x3, moves all extremities and no focal motor deficits Psych: COMMON NORMALS: mental status grossly normal, Normal thought process present and cooperative THOUGHT PROCESS: Normal thought process present Skin: COMMON NORMALS: no rashes or lesions noted and no wounds GENERAL SKIN EXAM: no rashes or lesions noted Course Vital Signs: Vital signs: Vital Signs Temperature 98.1 F 03/23/22 03:00 Pulse Rate 89 03/23/22 03:00 Respiratory Rate 18 03/23/22 05:01 Blood Pressure 127/83 03/23/22 05:01 Pulse Oximetry 95 03/23/22 05:01 MDM - Abdominal Pain Medical Decision Making Patient presents here abdominal and back pain likely muscular in nature his lab work and scans are normal he feels much improved. He is stable for discharge is to follow-up PCP and return if worsening. Lab Data : 03/23/22 03:10 03/23/22 03:10 Labs/Radiology: Radiology Impressions Abdomen/Pelvis CT 03/23/22 03:06 IMPRESSION: No acute intra-abdominal or intrapelvic pathology. Chest X-Ray 03/23/22 03:06 IMPRESSION: Low lung volumes versus mild pulmonary congestion. Laboratory Results WBC 9.2 10^3/uL (4.0-10.0) 03/23/22 03:10 RBC 5.69 10^6/uL (4.1-5.3) H 03/23/22 03:10 Hgb 16.4 g/dL (11.7-16.6) 03/23/22 03:10 Hct 48.9 % (42.0-52.0) 03/23/22 03:10 MCV 85.9 fl (80-94) 03/23/22 03:10 MCH 28.8 pg (28.0-34.0) 03/23/22 03:10 MCHC 33.5 g/dL (30.0-36.0) 03/23/22 03:10 RDW 12.3 % (12.1-15.1) 03/23/22 03:10 Plt Count 269 10^3/cmm (130-400) 03/23/22 03:10 MPV 9.6 fL (7.4-10.4) 03/23/22 03:10 Neut % (Auto) 51.3 % 03/23/22 03:10 Lymph % (Auto) 31.4 % 03/23/22 03:10 [place] % (Auto) 12.2 % 03/23/22 03:10 Eos % (Auto) 4.3 % 03/23/22 03:10 Baso % (Auto) 0.5 % 03/23/22 03:10 Neut # (Auto) 4.72 10^3/uL (1.8-7.7) 03/23/22 03:10 Lymph # (Auto) 2.9 10^3/uL (0.8-4.8) 03/23/22 03:10 [place] # (Auto) 1.1 10^3/uL (0.2-0.9) H 03/23/22 03:10 Eos # (Auto) 0.4 10^3/uL (0.0-0.8) 03/23/22 03:10 Baso # (Auto) 0.1 10^3/uL (0.0-0.1) 03/23/22 03:10 Nucleated RBC % (auto) 0 % 03/23/22 03:10 Nucleated RBCs # 0.0 /100WBC 03/23/22 03:10 Sodium 139 mmol/L (136-145) 03/23/22 03:10 Potassium 4.1 mmol/L (3.5-5.1) 03/23/22 03:10 Chloride 100 mmol/L (98-107) 03/23/22 03:10 Carbon Dioxide 27 mmol/L (22-29) 03/23/22 03:10 Anion Gap 16.1 (5-19) 03/23/22 03:10 BUN 15 mg/dL (6-20) 03/23/22 03:10 Creatinine 1.0 mg/dL (0.7-1.2) 03/23/22 03:10 GFR Calculation 77.3 mL/min (90-130) L 03/23/22 03:10 Glucose 135 mg/dL (65-115) H 03/23/22 03:10 Calculated Osmolality 291 mOsm/kg (285-295) 03/23/22 03:10 Calcium 9.7 mg/dL (8.5-10.5) 03/23/22 03:10 Total Bilirubin 1.2 mg/dL (0.15-1.2) 03/23/22 03:10 AST 16 U/L (0-40) 03/23/22 03:10 ALT 14 U/L (0-41) 03/23/22 03:10 Alkaline Phosphatase 106 IU/L (40-130) 03/23/22 03:10 Total Protein 7.6 g/dL (6.6-8.7) 03/23/22 03:10 Albumin 4.8 g/dL (3.5-5.2) 03/23/22 03:10 Globulin 2.8 g/dL (1.3-4.6) 03/23/22 03:10 Lipase 22 U/L (13-60) 03/23/22 03:10 Urine Color Yellow (Yellow) 03/23/22 05:00 Urine Appearance Clear (CLEAR) 03/23/22 05:00 Urine pH 5 (5-7) 03/23/22 05:00 Ur Specific [place] 1.020 (1.005-1.030) 03/23/22 05:00 Urine Protein Neg (Negative) 03/23/22 05:00 Urine Glucose (UA) 4+ (Normal) H 03/23/22 05:00 Urine Ketones Negative (Negative) 03/23/22 05:00 Urine Blood Neg (Negative) 03/23/22 05:00 Urine Nitrate Negative (Negative) 03/23/22 05:00 Urine Bilirubin Neg (Negative) 03/23/22 05:00 Urine Urobilinogen Norm mg/dL (Negative) 03/23/22 05:00 Ur Leukocyte Esterase Negative (Negative) 03/23/22 05:00 EKG Data EKG 1: I personally reviewed and interpreted this EKG as follows: EKG interpretation date: 03/23/22 EKG interpretation time: 02:21 Interpretation: nsr hr [address] or t wave abnormalities qrs 110 qtc 407 Discharge Plan Discharge Patient Disposition: Home Clinical Impression: Abdominal pain, Back pain Condition: Stable Prescriptions: New methocarbamol 750 mg tablet 750 mg PO Q6H PRN (Reason: spasms) Qty: 20 0RF No Action clonazepam [Klonopin] 1 mg tablet 1 mg PO TID PRN (Reason: Anxiety) 0RF sotalol [Betapace] 120 mg tablet 120 mg PO BID 0RF magnesium oxide 500 mg capsule 500 mg PO DAILY 0RF aspirin 81 mg Tablet,Delayed Release (Dr/Ec) 81 mg PO DAILY 0RF oxycodone 15 mg Tablet 15 mg PO QID PRN (Reason: Pain) 0RF Xigduo XR 10-500 mg Tablet, Ir - Er, Biphasic 24hr 1 tab PO DAILY 0RF testosterone cypionate 200 mg/mL oil 200 mg IM Q28D 0RF zolpidem 10 mg tablet 10 mg PO BEDTIME PRN (Reason: Insomnia) 0RF albuterol sulfate 90 mcg/actuation HFA aerosol inhaler 2 puff INHALATION Q4H PRN (Reason: Shortness Of Breath) 0RF fluticasone propionate 50 mcg/actuation spray,suspension 1 spray INTRANASAL DAILY PRN (Reason: Nasal Congestion) 0RF Discharge Orders: Discharge ED (Routine); Ordered 03/23/22 Ordered By: Herber Espinoza Referrals: Tash Zimmerman DO [Primary Care Provider] - 1-3 days Discharge Diet: Advance as tolerated Discharge Activity: Resume usual activity Patient Instructions: Abdominal Pain (ED), Opioid Safety Coding Level of Care Code ED Agricultural Sales Representative for Chg 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
[2022-03-23] MEDS: sodium chloride 0.9% 1,000 ML 999 ML IV (03:12)
[2022-03-23] MEDS: ondansetron 2 mg/ML SDV 2 mL 4 MG IVP (03:13)
[2022-03-23 03:14] VITALS: RESP 16
[2022-03-23] MEDS: morphine 4 mg/mL SDV 1 mL IVP (03:14)
[2022-03-23 03:31] LABS: Basophils # 0.1 10^3/uL (0.0-0.1); Basophils % 0.5 %; Eosinophils # 0.4 10^3/uL (0.0-0.8); Eosinophils % 4.3 %; Hematocrit 48.9 % (42.0-52.0); Hemoglobin 16.4 g/dL (11.7-16.6); Lymphocytes # 2.9 10^3/uL (0.8-4.8); Lymphocytes % 31.4 %; Mean Corpuscular HGB Conc 33.5 g/dL (30.0-36.0); Mean Corpuscular Hemoglobin 28.8 pg (28.0-34.0); Mean Corpuscular Volume 85.9 fl (80-94); Mean Platelet Volume 9.6 fL (7.4-10.4); Monocytes # 1.1 10^3/uL (0.2-0.9); Monocytes % 12.2 %; Neutrophils # 4.72 10^3/uL (1.8-7.7); Neutrophils % 51.3 %; Nucleated Red Blood Cells % 0 %; Platelet Count 269 10^3/cmm (130-400); Red Blood Count 5.69 10^6/uL (4.1-5.3); Red Cell Distribution Width 12.3 % (12.1-15.1); White Blood Count 9.2 10^3/uL (4.0-10.0)
[2022-03-23 03:49] VITALS: BP 120/74
[2022-03-23 03:52] LABS: Alanine Aminotransferase 14 U/L (0-41); Albumin Level 4.8 g/dL (3.5-5.2); Alkaline Phosphatase 106 IU/L (40-130); Anion Gap 16.1 (5-19); Aspartate Amino Transferase 16 U/L (0-40); Blood Urea Nitrogen 15 mg/dL (6-20); Calcium 9.7 mg/dL (8.5-10.5); Carbon Dioxide 27 mmol/L (22-29); Chloride 100 mmol/L (98-107); Globulin 2.8 g/dL (1.3-4.6); Glomerular Filtration Rate 77.3 mL/min (90-130); Glucose 135 mg/dL (65-115); Lipase 22 U/L (13-60); Osmolality Calculated 291 mOsm/kg (285-295); Potassium 4.1 mmol/L (3.5-5.1); Sodium 139 mmol/L (136-145); Total Bilirubin 1.2 mg/dL (0.15-1.2); Total Protein 7.6 g/dL (6.6-8.7)
[2022-03-23 05:01] VITALS: BP 127/83; RESP 18; O2SAT 95
[2022-03-23 05:02] LABS: Add Urine Microscopic? NO; Charge for UA Resulting for Rev
[2022-03-23 05:11] LABS: Bilirubin Urine Neg (Negative); Blood Urine Neg (Negative); Glucose Urine UA 4+ (Normal); Ketones Urine Negative (Negative); Leukocyte Esterase Urine Negative (Negative); Nitrate Urine Negative (Negative); Protein Urine Neg (Negative); Urine Appearance Clear (CLEAR); Urine Color Yellow (Yellow); Urobilinogen Urine Norm (Negative); pH Urine 5 (5-7)
[2022-03-23 05:39] VITALS: BP 121/74; PULSE 82; RESP 18; O2SAT 97
== END 2022-03-23 05:40 | disposition home or self-care (01) ==
PROVIDERS: Emergency Provider Emergency Medicine; PCP Family Medicine
DX: R10.11 Right upper quadrant pain (principal); M54.9 Dorsalgia, unspecified; E78.5 Hyperlipidemia, unspecified; I10 Essential (primary) hypertension; I50.9 Heart failure, unspecified
CPT/HCPCS: 71045; 74176; 80053; 81003; 83690; 85025; 93005; 96361; 96374; 96375; 99284; J2270; J2405; J7030

== ENCOUNTER 2022-04-01 12:03 | Observation (INO) | payer MEDICARE, MEDICAID, SELFPAY ==
[2022-04-01] VITALS (7 sets, daily range): BP systolic 101–127; BP diastolic 61–75; PULSE 68–85; RESP 16–18; TEMP 36.1–37.1; O2SAT 94–99; BMI 33.0
--- NOTE | 2022-04-01 12:20 | ED_ITS ---
HPI - Chest Pain General: Chief Complaint: Chest Pain Stated Complaint: chest pains, numbness in arm Time Seen by Provider: 04/01/22 12:19 History of Present Illness: 56-year-old presents with chest pain. States started this morning approximately 4 to 5 hours ago. It is achy and radiates down the left arm. Denies shortness of breath. Denies any exertional pleuritic component. Denies any radiation to the back. Denies any lower extremity pain or swelling. Denies fevers or chills. Denies nausea or vomiting. Review of Systems Narrative: - CONSTITUTIONAL: Denies weight loss, fever and chills. - HEENT: Denies changes in vision and hearing. - RESPIRATORY: Denies SOB and cough. - CV: As above - GI: Denies abdominal pain, nausea, vomiting and diarrhea. - : Denies dysuria and urinary frequency. - MSK: Denies myalgia and joint pain. - SKIN: Denies rash and pruritus. - NEUROLOGICAL: Denies headache, weakness, numbness and syncope. - PSYCHIATRIC: Denies suicidal ideation [facility] ED PFSH: Medical History Anxiety -f/u at [facility] [place] -on Clonazepam ASHD (arteriosclerotic heart disease) Atrial fibrillation Remains in sinus rhythm. Continue current regimen CHF (congestive heart failure) -acute exacerbation, BNP-73 -Echo (05/2019): EF=61%, G1DD, trace MR, trace to mild TR, trace DE -not on chronic diuretics; on IV Lasix -daily weights, monitor Is & Os; total negative fluid balance of 3.2 L Depression Elevated troponin -noted troponins with 2-hr delta of 10.40, 6hr troponin lower with no sign ificant delta -serial ECGs, so far, no acute ischemic changes -telemetry monitoring -has known hx of non-ischemic cardiomyopathy s/p pacemaker/AICD -had prior nuclear stress testing done in 05/2019 showing small sized reversible perfusion abnormality of mild severity of apical inferior and apical lateral doherty that may represent small area of ischemia in LAD territory -Cardiology evaluation by Dr. Mendoza appreciated; IV diuresis -VSS; continue to monitor -received dose of therapeutic lovenox, ASA 325 mg in ED -on ASA -Echo (05/2019): EF=61%, G1DD, trace MR, trace to mild TR, trace DE -noted lipid panel, A1c, TSH; start on statin -PAULINA -CXR unremarkable -unable to tolerate Imdur, persistent DUNN GERD (gastroesophageal reflux disease) Hyperlipidemia -started on statin, noted lipid panel Hypertension -initially hypertensive, BP well controlled -on oral antihypertensives -continue to monitor vital signs IBS (irritable bowel syndrome) Ingrown toenail of right foot with infection Nonischemic cardiomyopathy -f/u with Dr. Welsh -has pacemaker and AICD, no recent firing Surgical History S/P appendectomy S/P cholecystectomy S/P ICD (internal cardiac defibrillator) procedure Family History Mother Cancer Social History Smoking and tobacco status: never smoked Alcohol intake: former Lives independently: Yes Physical Exam Narrative: EXAM NARRATIVE: - GENERAL: Alert and oriented x 3. No acute distress. Well-nourished. - EYES: EOMI. Anicteric. - HENT: Atraumatic, no C-spine tenderness. Moist mucous membranes. No scleral icterus. No cervical lymphadenopathy. - LUNGS: Clear to auscultation bilaterally. No accessory muscle use. Equal lung sounds bilaterally. No respiratory distress. - CARDIOVASCULAR: Regular rate and rhythm. No murmur. No JVD. - ABDOMEN: Soft, non-tender and non-distended. Negative CVA tenderness bilaterally, no rebound or guarding, negative Hutchinson sign. No palpable masses. - EXTREMITIES: No edema. Non-tender. - SKIN: No rashes or lesions. Warm. - NEUROLOGIC: No meningismus or focal neurological deficits. CN II-XII grossly intact. - PSYCHIATRIC: Cooperative. Appropriate mood and affect. Course Vital Signs: Vital signs: Vital Signs Temperature 96.9 F L 04/01/22 12:06 Pulse Rate 73 04/01/22 12:06 Respiratory Rate 18 04/01/22 12:06 Blood Pressure 117/72 04/01/22 12:06 Pulse Oximetry 94 04/01/22 12:06 [facility] - Chest Pain Medical Decision Making 56-year-old presents with chest pain. Physical exam unremarkable. EKG and troponin not revealing sign of acute ischemia or other acute abnormality. D- dimer is elevated but CT does not reveal any signs of PE. Patient requests admission for stress test. Remainder of lab work and imaging reviewed. Discussed with hospitalist and they agreed patient would benefit from admission. Patient admitted in stable condition. Further evaluation management per hospitalist team. Lab Data : 04/01/22 12:20 04/01/22 12:20 Radiology Impressions Chest X-Ray 04/01/22 12:28 IMPRESSION: 1. No acute findings. 2. Left clavicle fracture status post ORIF. 3. Cardiac device left anterior chest in good position Chest CTA 04/01/22 12:54 IMPRESSION: 1. Negative for pulmonary embolism. 2. Negative for right heart strain. 3. Hepatic steatosis. 4. Calcified granuloma posteromedial left lower lobe 5. Cardiac device left anterior chest 6. Status post cholecystectomy Laboratory Results WBC 8.4 10^3/uL (4.0-10.0) 04/01/22 12:20 RBC 6.01 10^6/uL (4.1-5.3) H 04/01/22 12:20 Hgb 17.5 g/dL (11.7-16.6) H 04/01/22 12:20 Hct 50.3 % (42.0-52.0) 04/01/22 12:20 MCV 83.7 fl (80-94) 04/01/22 12:20 MCH 29.1 pg (28.0-34.0) 04/01/22 12:20 MCHC 34.8 g/dL (30.0-36.0) 04/01/22 12:20 RDW 12.3 % (12.1-15.1) 04/01/22 12:20 Plt Count 306 10^3/cmm (130-400) 04/01/22 12:20 MPV 9.5 fL (7.4-10.4) 04/01/22 12:20 Neut % (Auto) 58.9 % 04/01/22 12:20 Lymph % (Auto) 24.1 % 04/01/22 12:20 [place] % (Auto) 11.3 % 04/01/22 12:20 Eos % (Auto) 4.6 % 04/01/22 12:20 Baso % (Auto) 0.7 % 04/01/22 12:20 Neut # (Auto) 4.97 10^3/uL (1.8-7.7) 04/01/22 12:20 Lymph # (Auto) 2.0 10^3/uL (0.8-4.8) 04/01/22 12:20 [place] # (Auto) 1.0 10^3/uL (0.2-0.9) H 04/01/22 12:20 Eos # (Auto) 0.4 10^3/uL (0.0-0.8) 04/01/22 12:20 Baso # (Auto) 0.1 10^3/uL (0.0-0.1) 04/01/22 12:20 Nucleated RBC % (auto) 0 % 04/01/22 12:20 Nucleated RBCs # 0.0 /100WBC 04/01/22 12:20 D-Dimer 0.63 ug/mIFEU (0-0.59) H 04/01/22 12:20 Sodium 136 mmol/L (136-145) 04/01/22 12:20 Potassium 4.9 mmol/L (3.5-5.1) 04/01/22 12:20 Chloride 99 mmol/L (98-107) 04/01/22 12:20 Carbon Dioxide 25 mmol/L (22-29) 04/01/22 12:20 Anion Gap 16.9 (5-19) 04/01/22 12:20 BUN 14 mg/dL (6-20) 04/01/22 12:20 Creatinine 0.8 mg/dL (0.7-1.2) 04/01/22 12:20 GFR Calculation 100.0 mL/min (90-130) 04/01/22 12:20 Glucose 164 mg/dL (65-115) H 04/01/22 12:20 Calculated Osmolality 286 mOsm/kg (285-295) 04/01/22 12:20 Calcium 9.8 mg/dL (8.5-10.5) 04/01/22 12:20 Total Bilirubin 1.3 mg/dL (0.15-1.2) H 04/01/22 12:20 AST 36 U/L (0-40) 04/01/22 12:20 ALT 24 U/L (0-41) 04/01/22 12:20 Alkaline Phosphatase 104 IU/L (40-130) 04/01/22 12:20 Troponin T Baseline 11 ng/L (0-15) 04/01/22 12:20 NT-Pro-B Natriuret Pep 49 pg/mL (0-125) 04/01/22 12:20 Total Protein 7.9 g/dL (6.6-8.7) 04/01/22 12:20 Albumin 4.8 g/dL (3.5-5.2) 04/01/22 12:20 Globulin 3.1 g/dL (1.3-4.6) 04/01/22 12:20 EKG Data EKG 1: Other EKG comments: Sinus rhythm, rate of 76, no sign of acute ischemia or other acute abnormality. Discharge Plan Discharge Condition: Stable Prescriptions: No Action clonazepam [Klonopin] 1 mg tablet 1 mg PO TID PRN (Reason: Anxiety) 0RF sotalol [Betapace] 120 mg tablet 120 mg PO BID 0RF magnesium oxide 500 mg capsule 500 mg PO DAILY 0RF aspirin 81 mg Tablet,Delayed Release (Dr/Ec) 81 mg PO DAILY 0RF oxycodone 15 mg Tablet 15 mg PO QID PRN (Reason: Pain) 0RF Xigduo XR 10-500 mg Tablet, Ir - Er, Biphasic 24hr 1 tab PO DAILY 0RF testosterone cypionate 200 mg/mL oil 200 mg IM Q28D 0RF zolpidem 10 mg tablet 10 mg PO BEDTIME PRN (Reason: Insomnia) 0RF albuterol sulfate 90 mcg/actuation HFA aerosol inhaler 2 puff INHALATION Q4H PRN (Reason: Shortness Of Breath) 0RF fluticasone propionate 50 mcg/actuation spray,suspension 1 spray INTRANASAL DAILY PRN (Reason: Nasal Congestion) 0RF Trintellix 20 mg Tablet 20 mg PO DAILY 0RF Referrals: Tash Zimmerman DO [Primary Care Provider] - Coding Level of Care Code ED Supervisor Electron Tube Processing for Suad Hicks
--- NOTE | 2022-04-01 12:28 | XRR_ITS ---
PROCEDURE INFORMATION: Exam: XR Chest Exam date and time: 04/01/2022 12:37 PM Age: 56 years old Clinical indication: Shortness of breath; Additional info: Cp TECHNIQUE: Imaging protocol: Radiologic exam of the chest. Views: 1 view. COMPARISON: CR (CHEST, ) 03/23/2022 3:15 AM FINDINGS: Tubes, catheters and devices: A cardiac device is seen in the left anterior chest the leads are intact and in good position. Lungs: Unremarkable. No consolidation. Pleural spaces: Unremarkable. No pleural effusion. No pneumothorax. Heart/Mediastinum: Unremarkable. No cardiomegaly. Bones/joints: There is a comminuted fracture of the left clavicle status post ORIF with metallic orthopedic hardware. XR/XR chest 1V portable [id number] IMPRESSION: 1. No acute findings. 2. Left clavicle fracture status post ORIF. 3. Cardiac device left anterior chest in good position
--- NOTE | 2022-04-01 12:29 | ECG_ITS ---
[facility] Test Date: 2022-04-01 Pat Name: Andi Garcia Department: Room: Gender: Male Instrumentation Fitter: : 1965 Requested By: Maxim Witt Order Number: [id number] Jones MD: Vita Saenz M.D. Measurements Intervals [place] Rate: 76 P: 58 [place]: 175 QRS: 57 QRSD: 105 T: 63 QT: 378 QTc: 425 Interpretive Statements SINUS RHYTHM Compared to ECG 03/23/2022 02:21:06 No significant changes Electronically Signed On 04-01-2022 13:00:36 CDT by Vita Saenz M.D. [id number]
[2022-04-01] MEDS: aspirin 81 mg Chew Tablet 324 MG PO (12:30)
[2022-04-01 12:41] LABS: Basophils # 0.1 10^3/uL (0.0-0.1); Basophils % 0.7 %; Eosinophils # 0.4 10^3/uL (0.0-0.8); Eosinophils % 4.6 %; Hematocrit 50.3 % (42.0-52.0); Hemoglobin 17.5 g/dL (11.7-16.6); Lymphocytes % 24.1 %; Mean Corpuscular HGB Conc 34.8 g/dL (30.0-36.0); Mean Corpuscular Hemoglobin 29.1 pg (28.0-34.0); Mean Corpuscular Volume 83.7 fl (80-94); Mean Platelet Volume 9.5 fL (7.4-10.4); Monocytes % 11.3 %; Neutrophils # 4.97 10^3/uL (1.8-7.7); Neutrophils % 58.9 %; Nucleated Red Blood Cells % 0 %; Platelet Count 306 10^3/cmm (130-400); Red Blood Count 6.01 10^6/uL (4.1-5.3); Red Cell Distribution Width 12.3 % (12.1-15.1); White Blood Count 8.4 10^3/uL (4.0-10.0)
[2022-04-01 12:51] LABS: D Dimer 0.63 ug/mIFEU (0-0.59)
--- NOTE | 2022-04-01 12:54 | CTR_ITS ---
PROCEDURE INFORMATION: Exam: CTA Chest With Contrast Exam date and time: 04/01/2022 1:23 PM Age: 56 years old Clinical indication: Shortness of breath; Prior surgery; Surgery date: 6+ months; Additional info: Pe TECHNIQUE: Imaging protocol: Computed tomographic angiography of the chest with contrast. 3D rendering (Not supervised by radiologist): MIP and/or 3D reconstructed images were created by the technologist. Radiation optimization: All CT scans at this facility use at least one of these dose optimization techniques: automated exposure control; mA and/or kV adjustment per patient size (includes targeted exams where dose is matched to clinical indication); or iterative reconstruction. Contrast material: OMNIPAQUE 350; Contrast volume: 85 ml; Contrast route: INTRAVENOUS (IV); COMPARISON: CTA Chest w Abd/Pel w* 09/29/2016 7:20 PM RADIATION DOSE METRICS: Total DLP (mGy-cm): 661.8 FINDINGS: Tubes, catheters and devices: Cardiac device left anterior chest Pulmonary arteries: Normal. No pulmonary emboli. Aorta: Unremarkable. No aortic aneurysm. No aortic dissection. Lungs: Unremarkable. No consolidation. No masses. Calcified granuloma posteromedial left lower lobe (series 3, image 47). Pleural spaces: Unremarkable. No pneumothorax. No pleural effusion. Heart: Negative for right heart strain. No cardiomegaly. No pericardial effusion. Lymph nodes: Unremarkable. No enlarged lymph nodes. Bones/joints: Unremarkable. No acute fracture. Soft tissues: There is diffuse hepatic lucency consistent with hepatic steatosis. Evidence of cholecystectomy is seen. CT/CT angio chest PE protcl [id number] IMPRESSION: 1. Negative for pulmonary embolism. 2. Negative for right heart strain. 3. Hepatic steatosis. 4. Calcified granuloma posteromedial left lower lobe 5. Cardiac device left anterior chest 6. Status post cholecystectomy
[2022-04-01 12:58] LABS: Troponin(5th) Baseline 11 ng/L (0-15)
[2022-04-01 13:04] LABS: Alanine Aminotransferase 24 U/L (0-41); Albumin Level 4.8 g/dL (3.5-5.2); Alkaline Phosphatase 104 IU/L (40-130); Anion Gap 16.9 (5-19); Aspartate Amino Transferase 36 U/L (0-40); Blood Urea Nitrogen 14 mg/dL (6-20); Calcium 9.8 mg/dL (8.5-10.5); Carbon Dioxide 25 mmol/L (22-29); Chloride 99 mmol/L (98-107); Globulin 3.1 g/dL (1.3-4.6); Glucose 164 mg/dL (65-115); NT Pro B Type Natriuretic Pept 49 pg/mL (0-125); Osmolality Calculated 286 mOsm/kg (285-295); Potassium 4.9 mmol/L (3.5-5.1); Sodium 136 mmol/L (136-145); Total Bilirubin 1.3 mg/dL (0.15-1.2); Total Protein 7.9 g/dL (6.6-8.7)
--- NOTE | 2022-04-01 14:11 | PM.HP ---
Providers/Chief Complaint Primary Care Provider: Tash Zimmerman DO Chief Complaint: chest pains, numbness in arm History of Present Illness Andi Garcia JR is a 56 year old male with history of who carries history of nonischemic cardiomyopathy, status post AICD/pacemaker presented with chief complaint of chest pain. Patient stated that he was resting today when he bent over to tie His laces at that time he started experiencing chest discomfort which only last for about few seconds, it was radiating toward his left arm at that time he also noticed A. fib/palpitations. He has been noticing diaphoresis as well. No shortness of orthopnea or PND no fever diarrhea or constipation. Because of his concerns he decided to come to the ED for further evaluation. In the ER he he was admitted to hospital service for further work-up of chest pain. I have requested stress test. CBC unremarkable, CT rule out PE, no sign of dissection. He is in sinus rhythm without RVR Patient is stating that he is under a lot of stress because of social dynamics and recent in the family Review of Systems Const: Denies: fever(s) Eyes: Denies: change in vision ENMT: Denies: throat pain Card: Reports: chest pain Resp: Denies: dyspnea GI: Denies: abdominal pain : Denies: flank pain Musc: Denies: neck pain Skin/Breast: Denies: rash Neuro: Denies: headache(s) Psych: Denies: anxiety Endo: Denies: polyuria Jacques/Lymph: Denies: easy bruising All/Imm: Denies: urticaria Medications/Allergies Home Medications Medication Instructions Recorded Confirmed Last Taken Type clonazepam 1 mg tablet (Klonopin) 1 mg PO TID PRN tab 02/24/20 04/01/22 04/01/22 History sotalol 120 mg tablet (Betapace) 120 mg PO BID 02/24/20 04/01/22 04/01/22 History magnesium oxide 500 mg capsule 500 mg PO DAILY 02/25/20 04/01/22 02/12/22 History aspirin 81 mg tablet,delayed 81 mg PO DAILY 04/30/20 04/01/22 04/01/22 History release oxycodone 15 mg tablet 15 mg PO QID PRN 04/30/20 04/01/22 08/30/20 08:00 History dapagliflozin 10 mg-metformin ER 1 tab PO DAILY 07/10/21 04/01/22 04/01/22 History 500 mg tablet,extended release 24hr (Xigduo XR) albuterol sulfate 90 mcg/actuation 2 puff INHALATION Q4H PRN 02/13/22 04/01/22 Unknown History aerosol inhaler fluticasone propionate 50 1 spray INTRANASAL DAILY PRN 02/13/22 04/01/22 Unknown History mcg/actuation nasal spray,suspension testosterone cypionate 200 mg/mL 200 mg IM Q28D 02/13/22 04/01/22 Unknown History intramuscular oil zolpidem 10 mg tablet 10 mg PO BEDTIME PRN 02/13/22 04/01/22 Unknown History vortioxetine 20 mg tablet 20 mg PO DAILY 04/01/22 04/01/22 04/01/22 History (Trintellix) Allergies Allergy/AdvReac Type Severity Reaction Status Date / Time diazepam Allergy Unknown Unknown Verified 07/18/21 10:14 PFSH Acute PFSH: Medical History Anxiety -f/u at [facility] -on Clonazepam ASHD (arteriosclerotic heart disease) Atrial fibrillation Remains in sinus rhythm. Continue current regimen CHF (congestive heart failure) -acute exacerbation, BNP-73 -Echo (05/2019): EF=61%, G1DD, trace MR, trace to mild TR, trace TN -not on chronic diuretics; on IV Lasix -daily weights, monitor Is & Os; total negative fluid balance of 3.2 L Depression Elevated troponin -noted troponins with 2-hr delta of 10.40, 6hr troponin lower with no significant delta -serial ECGs, so far, no acute ischemic changes -telemetry monitoring -has known hx of non-ischemic cardiomyopathy s/p pacemaker/AICD -had prior nuclear stress testing done in 05/2019 showing small sized reversible perfusion abnormality of mild severity of apical inferior and apical lateral doherty that may represent small area of ischemia in LAD territory -Cardiology evaluation by Dr. Mendoza appreciated; IV diuresis -VSS; continue to monitor -received dose of therapeutic lovenox, ASA 325 mg in ED -on ASA -Echo (05/2019): EF=61%, G1DD, trace MR, trace to mild TR, trace TN -noted lipid panel, A1c, TSH; start on statin -PAULINA -CXR unremarkable -unable to tolerate Imdur, persistent DUNN GERD (gastroesophageal reflux disease) Hyperlipidemia -started on statin, noted lipid panel Hypertension -initially hypertensive, BP well controlled -on oral antihypertensives -continue to monitor vital signs IBS (irritable bowel syndrome) Ingrown toenail of right foot with infection Nonischemic cardiomyopathy -f/u with Dr. Welsh -has pacemaker and AICD, no recent firing Surgical History S/P appendectomy S/P cholecystectomy S/P ICD (internal cardiac defibrillator) procedure Family History Mother Cancer Social History Smoking and tobacco status: never smoked Alcohol intake: former Lives independently: Yes Vitals/I&O/Wt Last Vital Signs Temp 96.9 F L 04/01/22 12:06 Pulse 73 04/01/22 12:06 Resp 18 04/01/22 12:06 BP 117/72 04/01/22 12:06 Pulse Ox 94 04/01/22 12:06 Weight last 48 hrs Weight 113.398 kg Physical Exam Narrative: Pleasant cooperative male Euvolemic No signs of heart failure Abdomen soft Satting well on room air Nonfocal neuro exam Appears anxious No active chest pain Currently saturating well on room air new Hemodynamically stable Data : 04/01/22 12:20 04/01/22 12:20 A&P Assessment and plan (1) Unstable angina: Status: Acute Plan Unstable angina Currently chest pain-free Current rhythm is sinus Carries history of A. fib status post cardioversion Due to pacemaker AICD interrogation CT chest rule out PE No sign of aortic dissection Will do cardiac stress test tomorrow morning Patient also is undergoing a lot of social stress because of recent in the family Chest x-ray did not show any signs of pneumonia Currently hemodynamically stable Echo in the morning Full code N.p.o. from midnight DVT prophylaxis on board Attestations Medical Necessity Statement*: Less than 2 midnights anticipated for work-up of unstable angina with stress test Time Spent in Patient Care: 35 Coding Level of Care Code Acute Board Certified Family Physician for Chg Fwd Diagnoses Unstable angina I20.0
--- NOTE | 2022-04-01 14:29 | ECG_ITS ---
[facility] Test Date: 2022-04-01 Pat Name: Andi Garcia Department: Room: Gender: Male Superintendent Drivers: : 1965 Requested By: Maxim Witt Order Number: [id number] Karen MD: Vita Saenz M.D. Measurements Intervals [place] Rate: 70 P: 56 NV: 182 QRS: 70 QRSD: 112 T: 66 QT: 393 QTc: 426 Interpretive Statements SINUS RHYTHM MODERATE INTRAVENTRICULAR CONDUCTION DELAY [110+ ms QRS DURATION] Compared to ECG 04/01/2022 12:14:56 Intraventricular conduction delay now present Electronically Signed On 04-02-2022 21:33:30 CDT by Vita Saenz M.D. [id number]
[2022-04-01 14:55] LABS: Troponin 5 2HR 10.13 ng/L (0-15)
--- NOTE | 2022-04-01 15:27 | USCV_ITS ---
Andi Garcia Age: 56 Gender: M : 1965 Exam Date: 04/01/2022 15:47 Ordering Phys: Hosea Del Real MD Technologist: Ruben Laboy [place] [facility] [place]: chest pain BP: / HR: 68 Rhythm: Sinus Technical Quality: Adequate MEASUREMENTS (Male / Female) Normal Values 2D ECHO LV Diastolic Diameter PLAX 4.4 cm 4.2 - 5.9 / 3.9 - 5.3 cm LV Systolic Diameter PLAX 3.2 cm IVS Diastolic Thickness 1.3 cm 0.6 - 1.0 / 0.6 - 0.9 cm IVS Systolic Thickness 1.5 cm LVPW Diastolic Thickness 1.5 cm 0.6 - 1.0 / 0.6 - 0.9 cm LVPW Systolic Thickness 1.6 cm LVOT Diameter 2.3 cm LV Ejection Fraction 2D Teich 49.5 % LV Ejection Fraction MOD 2C 63.5 % LV Ejection Fraction 2C AL 65.4 % LA Diameter 3.6 cm M-MODE LV Diastolic Diameter MM 6.9 cm 4.2 - 5.9 / 3.9 - 5.3 cm LV Systolic Diameter MM 4.8 cm LV Ejection Fraction MM Teich 55.6 % IVS Diastolic Thickness MM 0.9 cm 0.6 - 1.0 / 0.6 - 0.9 cm IVS Systolic Thickness MM 1.6 cm LVPW Diastolic Thickness MM 1.1 cm 0.6 - 1.0 / 0.6 - 0.9 cm LVPW Systolic Thickness MM 1.7 cm RV Diastolic Diameter MM 1.7 cm Aortic Annulus Diameter 3.6 cm LA Ao Ratio MM 1.0 MV E Point Septal Separation 1.2 cm DOPPLER AV Peak Velocity 120.0 cm/s LVOT Peak Velocity 84.0 cm/s AV Area Cont Eq vti 2.5 cm squared AV Area Cont Eq pk 2.8 cm squared MV Area PHT 5.0 cm squared Mitral E to A Ratio 1.3 MV E' Velocity 33.0 cm/s Mitral E to MV E' Ratio 7.4 Mitral E to LV E' Lateral Ratio 6.2 Mitral E to LV E' Septal Ratio 9.1 TR Peak Velocity 260.0 cm/s TR Peak Gradient 27.0 mmHg TV Peak E Velocity 98.0 cm/s Right Atrial Pressure 3.0 mmHg Pulmonary Artery Systolic Pressu 30.0 mmHg PV Peak Velocity 100.0 cm/s FINDINGS Left Ventricle Normal left ventricular size, systolic function and wall thickness, with no diagnostic regional wall motion abnormalities. Left ventricular ejection fraction is estimated at 55-60 %. Abnormal diastolic function. Abnormal septal motion. Right Ventricle Normal right ventricular size and mildly decreased right ventricle systolic function. Pacemaker wire visualized in the right ventricle. Right Atrium Normal right atrial size. Pacemaker wire in the right atrial cavity. Left Atrium Normal left atrial size. Mitral Valve Structurally normal mitral valve. Aortic Valve Aortic valve not well visualized. No aortic valve stenosis. Tricuspid Valve Structurally normal tricuspid valve. Pulmonic Valve Pulmonic valve not well visualized. No pulmonary valve stenosis. Pericardium No pericardial effusion. Aorta Mildly dilated aortic root. IVC Inferior vena cava not visualized. CONCLUSIONS 1. This is a technically difficult study with off axis images. 2. Normal left ventricular size, systolic function and wall thickness, with no diagnostic regional wall motion abnormalities. Left ventricular ejection fraction is estimated at 55-60 %. Abnormal diastolic function. 3. Normal right ventricular size and mildly decreased right ventricle systolic function. 4. When compared to previous study dated 05/30/2019, there may not have been any significant change. Vita Saenz MD (Electronically Signed) Final Date: 02 April 2022 10:06 S
[2022-04-01 15:40] LABS: Troponin 5 2HR Delta -0.87 ABS# (0-10)
[2022-04-01] MEDS: sotalol 80 mg Tablet 120 MG PO (17:28)
[2022-04-01 18:21] LABS: Troponin 5 6HR 8.58 ng/L (0-15)
--- NOTE | 2022-04-01 18:29 | ECG_ITS ---
[facility] Test Date: 2022-04-01 Pat Name: Andi Garcia Department: Room: 256 Gender: Male Multifocal Lens Inspector: : 1965 Requested By: Maxim Witt Order Number: [id number] Jones MD: Vita Saenz M.D. Measurements Intervals [place] Rate: 81 P: 56 ME: 186 QRS: 61 QRSD: 107 T: 64 QT: 365 QTc: 426 Interpretive Statements SINUS RHYTHM Compared to ECG 04/01/2022 13:10:09 Intraventricular conduction delay no longer present Electronically Signed On 04-02-2022 21:32:32 CDT by Vita Saenz M.D. [id number]
[2022-04-01 18:45] LABS: Troponin 5 6HR Delta -2.42 ng/L (0-12)
[2022-04-01] MEDS: heparin 5,000 unit/mL INJ 1 mL 5000 UNIT SUBCUT (19:21)
[2022-04-02] VITALS (8 sets, daily range): BP systolic 102–122; BP diastolic 65–71; PULSE 60–87; RESP 16–18; TEMP 36.6–37.1; O2SAT 93–96
[2022-04-02] MEDS: heparin 5,000 unit/mL INJ 1 mL 5000 UNIT SUBCUT (06:33)
--- NOTE | 2022-04-02 06:49 | ECG_ITS ---
[facility] Test Date: 2022-04-02 Pat Name: Andi Garcia Department: Room: 256 Gender: Male Flower Arranger: Desiree Espinoza : 1965 Requested By: Hosea Del Real Order Number: [id number] Karen MD: Viviana Hernández M.D. Interpretive Statements NAME OF STUDY: LEXISCAN SESTAMIBI STRESS TEST INDICATION: Chest Pain, PROCEDURE: At the baseline, the EKG revealed normal sinus rhythm with a rate of 74 bpm. Incomplete right bundle branch block. Normal ST Ts.. The baseline blood pressure was 103/70 mm Hg with a heart rate of 74 beats/min. Lexiscan was infused over a period of 20 seconds. A total of 0.4 milligrams of Lexiscan was infused. The stress phase was continued for a total of 5 minutes. Heart rate at the end of the stress phase was 83 with a blood pressure 96/62. The EKG at the peak infusion revealed no significant changes. Sestamibi was injected 20 seconds after the Lexiscan infusion. Blood pressure at the end of the recovery phase was 97/62 with a heart rate of 86 per minute. CONCLUSION: 1. No significant EKG changes with the LexiScan infusion 2. No LexiScan induced chest pain or cardiac arrhythmia 3. Normal blood pressure and heart rate response 4. Sestamibi/sestamibi perfusion scan pending; see separate report. Electronically Signed On 04-06-2022 11:23:53 CDT by Viviana Hernández M.D. [id number]
[2022-04-02] MEDS: regadenoson 0.4 Mg/5 ml Syringe IVP (08:05)
[2022-04-02] MEDS: aspirin 81 mg EC Tablet PO (09:36)
[2022-04-02] MEDS: sotalol 80 mg Tablet 120 MG PO (09:38)
[2022-04-02] MEDS: sennosides-docusate Tablet 1 TAB PO (09:39)
--- NOTE | 2022-04-02 11:13 | P.DS_ITS ---
Discharge Providers Date of Admission: 04/01/22 14:08 Date of Discharge: April 02, 2022 Attending Provider at Admission: Hosea Del Real MD Attending Provider at Discharge: Hosea Del Real MD Primary Care Provider: Tash Zimmerman DO Diagnoses at Discharge Discharge Diagnosis (1) Unstable angina: Status: Acute Reason for Visit Reason for Visit: chest pains, numbness in arm Hospital Course Hospital Course 36-year-old male with history of nonischemic cardiomyopathy status post AICD/pacemaker presented to the hospital for chief complaint of left-sided chest pain which was radiating towards his left arm. Stress test unremarkable, echo did not show new changes, no wall motion abnormality, preserved ejection fraction, clinically he looks euvolemic, no recurrence of chest pain. Troponin trending down. EKG without ischemic or infarctive changes. Patient will be discharged home without change in his home medication, please note he has been taken off anticoagulating agent since cardioversion. Would recommend him to go to mortgage processing [facility] to keep an eye to see if he he would do need chronic anticoagulation despite cardioversion. His rhythm remained sinus during hospitalization. Physical Exam Narrative: No chest pain Nonfocal neuro exam Abdomen soft Satting well on room air Tolerating diet Discharge Data Studies Completed and Pending Completed Studies During Hospitalization Category Date Time Status CTA chest [CT angio chest PE protcl [id number]] Urgent Cat Scan 04/01/22 12:54 Completed Cardiac Stress Test MIBI [Sestamibi Stress Test Request Exams 04/02/22 06:49 Draft ] Routine XR chest 1V portable [id number] Stat Exams 04/01/22 12:28 Completed CV. echo complete* [id number] Routine Ultrasound 04/01/22 15:27 Completed Pending at discharge Category Date Time Status Sestamibi Stress Test Request Routine Exams 04/01/22 15:27 Ordered NM davi perf SPECT r/s* [id number] Routine Nuc Med 04/02/22 15:27 Taken Radiology Impressions Chest X-Ray 04/01/22 12:28 IMPRESSION: 1. No acute findings. 2. Left clavicle fracture status post ORIF. 3. Cardiac device left anterior chest in good position Chest CTA 04/01/22 12:54 IMPRESSION: 1. Negative for pulmonary embolism. 2. Negative for right heart strain. 3. Hepatic steatosis. 4. Calcified granuloma posteromedial left lower lobe 5. Cardiac device left anterior chest 6. Status post cholecystectomy Laboratory Results WBC 8.4 10^3/uL (4.0-10.0) 04/01/22 12:20 RBC 6.01 10^6/uL (4.1-5.3) H 04/01/22 12:20 Hgb 17.5 g/dL (11.7-16.6) H 04/01/22 12:20 Hct 50.3 % (42.0-52.0) 04/01/22 12:20 MCV 83.7 fl (80-94) 04/01/22 12:20 MCH 29.1 pg (28.0-34.0) 04/01/22 12:20 MCHC 34.8 g/dL (30.0-36.0) 04/01/22 12:20 RDW 12.3 % (12.1-15.1) 04/01/22 12:20 Plt Count 306 10^3/cmm (130-400) 04/01/22 12:20 MPV 9.5 fL (7.4-10.4) 04/01/22 12:20 Neut % (Auto) 58.9 % 04/01/22 12:20 Lymph % (Auto) 24.1 % 04/01/22 12:20 Rains % (Auto) 11.3 % 04/01/22 12:20 Eos % (Auto) 4.6 % 04/01/22 12:20 Baso % (Auto) 0.7 % 04/01/22 12:20 Neut # (Auto) 4.97 10^3/uL (1.8-7.7) 04/01/22 12:20 Lymph # (Auto) 2.0 10^3/uL (0.8-4.8) 04/01/22 12:20 Rains # (Auto) 1.0 10^3/uL (0.2-0.9) H 04/01/22 12:20 Eos # (Auto) 0.4 10^3/uL (0.0-0.8) 04/01/22 12:20 Baso # (Auto) 0.1 10^3/uL (0.0-0.1) 04/01/22 12:20 Nucleated RBC % (auto) 0 % 04/01/22 12:20 Nucleated RBCs # 0.0 /100WBC 04/01/22 12:20 D-Dimer 0.63 ug/mIFEU (0-0.59) H 04/01/22 12:20 Sodium 136 mmol/L (136-145) 04/01/22 12:20 Potassium 4.9 mmol/L (3.5-5.1) 04/01/22 12:20 Chloride 99 mmol/L (98-107) 04/01/22 12:20 Carbon Dioxide 25 mmol/L (22-29) 04/01/22 12:20 Anion Gap 16.9 (5-19) 04/01/22 12:20 BUN 14 mg/dL (6-20) 04/01/22 12:20 Creatinine 0.8 mg/dL (0.7-1.2) 04/01/22 12:20 GFR Calculation 100.0 mL/min (90-130) 04/01/22 12:20 Glucose 164 mg/dL (65-115) H 04/01/22 12:20 Calculated Osmolality 286 mOsm/kg (285-295) 04/01/22 12:20 Calcium 9.8 mg/dL (8.5-10.5) 04/01/22 12:20 Total Bilirubin 1.3 mg/dL (0.15-1.2) H 04/01/22 12:20 AST 36 U/L (0-40) 04/01/22 12:20 ALT 24 U/L (0-41) 04/01/22 12:20 Alkaline Phosphatase 104 IU/L (40-130) 04/01/22 12:20 Troponin T Baseline 11 ng/L (0-15) 04/01/22 12:20 Troponin T 120 Minute 10.13 ng/L (0-15) 04/01/22 14:20 Delta Troponin T -0.87 ABS# (0-10) L 04/01/22 14:20 Troponin T Hi Sens 6Hr 8.58 ng/L (0-15) 04/01/22 17:36 Troponin T Hi Sens 6Hr Delta -2.42 ng/L (0-12) L 04/01/22 17:36 NT-Pro-B Natriuret Pep 49 pg/mL (0-125) 04/01/22 12:20 Total Protein 7.9 g/dL (6.6-8.7) 04/01/22 12:20 Albumin 4.8 g/dL (3.5-5.2) 04/01/22 12:20 Globulin 3.1 g/dL (1.3-4.6) 04/01/22 12:20 Vitals Last Vital Signs Temp 97.9 F 04/02/22 04:44 Pulse 87 04/02/22 08:05 Resp 16 04/02/22 04:44 BP 105/65 04/02/22 08:05 Pulse Ox 96 04/02/22 04:44 Discharge Plan Discharge Patient Disposition: Home Condition: Stable Prescriptions: Continued clonazepam [Klonopin] 1 mg tablet 1 mg PO TID PRN (Reason: Anxiety) 0RF sotalol [Betapace] 120 mg tablet 120 mg PO BID 0RF magnesium oxide 500 mg capsule 500 mg PO DAILY 0RF aspirin 81 mg Tablet,Delayed Release (Dr/Ec) 81 mg PO DAILY 0RF oxycodone 15 mg Tablet 15 mg PO QID PRN (Reason: Pain) 0RF Xigduo XR 10-500 mg Tablet, Ir - Er, Biphasic 24hr 1 tab PO DAILY 0RF testosterone cypionate 200 mg/mL oil 200 mg IM Q28D 0RF zolpidem 10 mg tablet 10 mg PO BEDTIME PRN (Reason: Insomnia) 0RF albuterol sulfate 90 mcg/actuation HFA aerosol inhaler 2 puff INHALATION Q4H PRN (Reason: Shortness Of Breath) 0RF fluticasone propionate 50 mcg/actuation spray,suspension 1 spray INTRANASAL DAILY PRN (Reason: Nasal Congestion) 0RF Trintellix 20 mg Tablet 20 mg PO DAILY 0RF Discharge Orders: Discharge Order (Routine); Ordered 04/02/22 Ordered By: Hosea Del Real Referrals: Tash Zimmerman DO [Primary Care Provider] - 04/19/22 10:00 am Discharge Diet: Cardiac Patient Instructions: Angina (DC), Low-Sodium Diet (DC), Opioid Safety (DC) Discharge Attestations Time Spent in Discharge Care*: less than 30 min Status at Discharge: Cognitive status at discharge: cognitively intact , Behavioral status at discharge: cooperative and independent in ADL's , Quality Metrics Clinical Quality Measures [ No reported AMI, CVA or VTE this stay] Coding Level of Care Code Acute Chg FW DC note Diagnoses Unstable angina I20.0
[2022-04-02] MEDS: CLONazepam 1 mg Tablet PO (13:18)
[2022-04-02] MEDS: morphine IR 15 mg Tablet PO (13:18)
--- NOTE | 2022-04-02 15:27 | NMCV_ITS ---
NM davi perf SPECT r/s* [id number] WhiteAndi Age: 56 Gender: M : 1965 Exam Date: 04/02/2022 07:11 Ordering Phys: Hosea Del Real MD Technologist: ADINA Dial Exam Location: [facility] Indications: SHORTNESS OF BREATH STRESS TEST Please see separate stress test report in [facility] for full findings IMAGE PROTOCOL Rest/Stress 1 Lexiscan Day Radiopharmaceutical Dose (mCi) Administration Site Administered by Rest: Tc-99m 10.8 IV ADINA Gardner Sestamibi Stress:Tc-99m 32.4 IV ADINA Dial Sestamiasia Rest: 02-Apr-2022 60 Discovery 630 Stress: 02-Apr-2022 30 Discovery 630 0.4mg Lexiscan. Supine position only as patient was unable to lay prone. SPECT RESULTS Technical Quality: Excellent Raw Data Analysis: Normal Image Corrections: No attenuation or motion correction applied Summed Stress Score: 3 Summed Rest Score: 0 Summed Difference Score: 3 PERFUSION FINDINGS Mild to moderate area of decreased tracer uptake in the basal and mid inferoseptal and apical lateral regions. Subtle areas of reversibility was noted in these regions. FUNCTIONAL RESULTS (calculated via Gated SPECT) Stress Image LV EF (%): 58 Stress EDV (mL):79 TID: 1.11 Stress ESV (mL):33 FUNCTIONAL FINDINGS: Segmental wall motion analysis reveals no gross wall motion abnormalities IMPRESSIONS 1. Myocardial perfusion imaging revealing small to moderate area of mildly decreased tracer uptake in the basal and mid inferoseptal and apical lateral regions with a subtle areas of reversibility, suggesting myocardial scarring in the distribution of the right coronary artery/circumflex artery with very small areas of kay-infarction ischemia 2. Normal LV ejection fraction 58%. 3. Segmental wall motion analysis revealing no gross wall motion abnormalities 4. Normal LV volume Compared to the study from 06/09/2019, the inferoseptal abnormality appears to be new Dr Viviana Hernández MD [facility] (Electronically Signed) Final Date: 02 April 2022 16:20 S
--- NOTE | 2022-04-02 17:50 | PC.NURSE ---
Discharge Note Patient discharged to home via private vehicle accompanied by self. Discharge instructions reviewed with patient and/or product support sales representative. Mobile pharmacy medications and/or prescriptions provided. Belongings/home medications returned.
== END 2022-04-02 17:51 | disposition home or self-care (01) ==
LOC: ER 12:30 → MEDSURG 04-02 05:13
PROVIDERS: Admitting Provider Internal Medicine; Emergency Provider Emergency Medicine; PCP Family Medicine; Visit Provider Internal Medicine
DX: I25.110 Atherosclerotic heart disease of native coronary artery with unstable angina pectoris (principal); Z95.0 Presence of cardiac pacemaker; F41.9 Anxiety disorder, unspecified; I48.91 Unspecified atrial fibrillation; F32.9 Major depressive disorder, single episode, unspecified; K21.9 Gastro-esophageal reflux disease without esophagitis; E78.5 Hyperlipidemia, unspecified; I11.0 Hypertensive heart disease with heart failure; I50.9 Heart failure, unspecified; Z79.82 Long term (current) use of aspirin
CPT/HCPCS: 71045; 71275; 78452; 80053; 83880; 84484; 85025; 85378; 93005; 93017; 93306; 96372; 99285; A9500; G0378; J1644; J2785; Q9967

== ENCOUNTER 2022-04-30 22:10 | Emergency (ER) | payer MEDICARE, MEDICAID, SELFPAY ==
[2022-04-30 22:25] VITALS: BP 119/77; PULSE 89; RESP 18; TEMP 36.7; O2SAT 96; BMI 32.3
--- NOTE | 2022-04-30 22:44 | ED_ITS ---
HPI - General Adult General: Chief complaint: General Medical Stated complaint: n/v ran out of pain meds leg/back pain Time Seen by Provider: 04/30/22 22:44 History of Present Illness: 56-year-old male patient comes in today for concerns of running out of his medication last . Patient reports he sets a scheduled time by an alarm on his watch so he can take his medication as prescribed. Patient reports running out of his medication last . Patient reports he is unable to refill the medication until this Saturday. Patient takes 20 mg of oxycodone 3 times a day. Patient was not able to get a hold of his primary care provider today. Patient comes in tonight due to nausea and not feeling well and suspecting opioid withdrawal. Patient appears mildly unwell but not toxic. Patient takes his medications for chronic back pain. Patient also has a history of coronary artery disease with pacemaker insertion. Associated symptoms: Reports nausea Review of Systems General: Reports: 10 or more systems reviewed and unremarkable except in HPI and below GI: Reports: nausea Musc: Reports: back pain and joint pain PFS ED PFSH: Medical History Anxiety -f/u at [facility] -on Clonazepam ASHD (arteriosclerotic heart disease) Atrial fibrillation Remains in sinus rhythm. Continue current regimen CHF (congestive heart failure) -acute exacerbation, BNP-73 -Echo (05/2019): EF=61%, G1DD, trace MR, trace to mild TR, trace [place] -not on chronic diuretics; on IV Lasix -daily weights, monitor Is & Os; total negative fluid balance of 3.2 L Depression Elevated troponin -noted troponins with 2-hr delta of 10.40, 6hr troponin lower with no significant delta -serial ECGs, so far, no acute ischemic changes -telemetry monitoring -has known hx of non-ischemic cardiomyopathy s/p pacemaker/AICD -had prior nuclear stress testing done in 05/2019 showing small sized reversible perfusion abnormality of mild severity of apical inferior and apical lateral doherty that may represent small area of ischemia in LAD territory -Cardiology evaluation by Dr. Mendoza appreciated; IV diuresis -VSS; continue to monitor -received dose of therapeutic lovenox, ASA 325 mg in ED -on ASA -Echo (05/2019): EF=61%, G1DD, trace MR, trace to mild TR, trace W[place] -noted lipid panel, A1c, TSH; start on statin -PAULINA -CXR unremarkable -unable to tolerate Imdur, persistent DUNN GERD (gastroesophageal reflux disease) Hyperlipidemia -started on statin, noted lipid panel Hypertension -initially hypertensive, BP well controlled -on oral antihypertensives -continue to monitor vital signs IBS (irritable bowel syndrome) Ingrown toenail of right foot with infection Nonischemic cardiomyopathy -f/u with Dr. Welsh -has pacemaker and AICD, no recent firing Surgical History S/P appendectomy S/P cholecystectomy S/P ICD (internal cardiac defibrillator) procedure Family History Mother Cancer Social History Smoking and tobacco status: never smoked Alcohol intake: former Lives independently: Yes Physical Exam Const: COMMON NORMALS: alert HENMT: COMMON NORMALS: normocephalic HEAD & SCALP: normocephalic Neck/C-Spine: COMMON NORMALS: full ROM Resp: COMMON NORMALS: normal respiratory effort GI: COMMON NORMALS: non-tender Extremity: COMMON NORMALS: normal to inspection Neuro: SENSORIUM/ORIENTATION: Yes alert Skin: COMMON NORMALS: no rashes or lesions noted GENERAL SKIN EXAM: no rashes or lesions noted Course Vital Signs: Vital signs: Vital Signs Temperature 98.1 F 04/30/22 22:25 Pulse Rate 89 04/30/22 22:25 Respiratory Rate 18 04/30/22 22:25 Blood Pressure 119/77 04/30/22 22:25 Pulse Oximetry 96 04/30/22 22:25 [facility] - General Adult Medical Decision Making 56-year-old male patient comes in today with complaints of running out of his oxycodone. Patient takes 20 mg 3 times a day. On exam respirations are even, vital signs are normal. Abdomen soft nontender. Skin is warm and dry. Differential diagnosis includes but not limited to opioid withdrawal, drug- seeking behavior, substance abuse disorder. Patient was given 1 dose of oxycodone 20 mg. Patient was recommended to follow-up with his primary care in the morning regarding the inability to get his refill on time. Patient agreed to plan and need for follow-up or return to the ER. Discharge Plan Discharge Patient Disposition: Home Clinical Impression: Has run out of medications, Long-term current use of opiate analgesic Condition: Stable Prescriptions: No Action clonazepam [Klonopin] 1 mg tablet 1 mg PO TID PRN (Reason: Anxiety) 0RF sotalol [Betapace] 120 mg tablet 120 mg PO BID 0RF magnesium oxide 500 mg capsule 500 mg PO DAILY 0RF aspirin 81 mg Tablet,Delayed Release (Dr/Ec) 81 mg PO DAILY 0RF oxycodone 15 mg Tablet 15 mg PO QID PRN (Reason: Pain) 0RF Xigduo XR 10-500 mg Tablet, Ir - Er, Biphasic 24hr 1 tab PO DAILY 0RF testosterone cypionate 200 mg/mL oil 200 mg IM Q28D 0RF zolpidem 10 mg tablet 10 mg PO BEDTIME PRN (Reason: Insomnia) 0RF albuterol sulfate 90 mcg/actuation HFA aerosol inhaler 2 puff INHALATION Q4H PRN (Reason: Shortness Of Breath) 0RF fluticasone propionate 50 mcg/actuation spray,suspension 1 spray INTRANASAL DAILY PRN (Reason: Nasal Congestion) 0RF Trintellix 20 mg Tablet 20 mg PO DAILY 0RF Discharge Orders: Discharge ED (Routine); Ordered 04/30/22 Ordered By: Wilman Nielsen Referrals: Tash Zimmerman DO [Primary Care Provider] - Discharge Diet: Usual diet Discharge Activity: Increase activity as tolerated Patient Instructions: Opioid Safety Activity Restrictions/Additional Instructions: Follow-up with Dr. Zimmerman office tomorrow. Continue routine medications. Return to ER for worsening symptoms or new concerns. Coding Level of Care Code ED Time Lock Expert for Suad Hicks
[2022-04-30 23:40] VITALS: RESP 20; O2SAT 99
[2022-04-30] MEDS: oxyCODONE 5 mg IR Tab/Cap 20 MG PO (23:40)
== END 2022-05-01 00:03 | disposition home or self-care (01) ==
PROVIDERS: Emergency Provider Nurse Practitioner Family; PCP Family Medicine
DX: Z76.0 Encounter for issue of repeat prescription (principal); Z79.891 Long term (current) use of opiate analgesic; Z79.82 Long term (current) use of aspirin; I11.0 Hypertensive heart disease with heart failure; I50.9 Heart failure, unspecified; E78.5 Hyperlipidemia, unspecified
CPT/HCPCS: 99283

== ENCOUNTER → 2022-05-04 09:12 | Outpatient (BNVA) | payer MEDICARE, MEDICAID, SELFPAY | PROVIDERS: PCP Family Medicine; Visit Provider Internal Medicine | DX: Z45.02 Encounter for adjustment and management of automatic implantable cardiac defibrillator (principal) | CPT/HCPCS: 93283 ==

== ENCOUNTER → 2022-05-08 12:51 | Outpatient (BNVA) | payer MEDICARE, MEDICAID, SELFPAY | PROVIDERS: PCP Family Medicine; Visit Provider Internal Medicine Cardiovascular Disease | DX: I48.11 Longstanding persistent atrial fibrillation (principal); Z95.810 Presence of automatic (implantable) cardiac defibrillator; I11.0 Hypertensive heart disease with heart failure; I50.9 Heart failure, unspecified; I43 Cardiomyopathy in diseases classified elsewhere; E78.5 Hyperlipidemia, unspecified | CPT/HCPCS: 99213 ==

== ENCOUNTER → 2022-11-06 11:44 | Outpatient (BNVA) | payer MEDICARE, MEDICAID, SELFPAY | PROVIDERS: PCP Family Medicine; Visit Provider Internal Medicine | DX: I48.11 Longstanding persistent atrial fibrillation (principal); Z95.810 Presence of automatic (implantable) cardiac defibrillator; E78.5 Hyperlipidemia, unspecified; I42.8 Other cardiomyopathies; I11.0 Hypertensive heart disease with heart failure; I50.9 Heart failure, unspecified | CPT/HCPCS: 99214 ==

== ENCOUNTER → 2022-11-09 10:33 | Outpatient (BNVA) | payer MEDICARE, MEDICAID, SELFPAY | PROVIDERS: PCP Family Medicine; Visit Provider Internal Medicine | DX: Z45.02 Encounter for adjustment and management of automatic implantable cardiac defibrillator (principal) | CPT/HCPCS: 93283 ==

== ENCOUNTER → 2023-05-13 10:08 | Outpatient (BNVA) | payer MEDICARE, MEDICAID, SELFPAY | PROVIDERS: PCP Family Medicine; Visit Provider Nurse Practitioner Family | DX: Z45.02 Encounter for adjustment and management of automatic implantable cardiac defibrillator (principal); I42.8 Other cardiomyopathies; Z79.82 Long term (current) use of aspirin | CPT/HCPCS: 80048; 85025; 85610; 99214 ==

== ENCOUNTER → 2023-05-14 16:38 | Outpatient (BNVA) | payer MEDICARE, MEDICAID, SELFPAY | PROVIDERS: PCP Family Medicine; Visit Provider Internal Medicine | DX: Z53.9 Procedure and treatment not carried out, unspecified reason (principal) | CPT/HCPCS: 93296 ==

== ENCOUNTER 2023-05-15 20:50 | Emergency (ER) | payer MEDICARE, MEDICAID, SELFPAY ==
--- NOTE | 2023-05-15 20:55 | ECG_ITS ---
[facility] Test Date: 2023-05-15 Pat Name: Andi Garcia Department: Room: Gender: Male Tumbling Instructor: : 1965 Requested By: Herber Espinoza Order Number: [id number] Karen MD: Fidel Cheatham M.D. Measurements Intervals [place] Rate: 56 P: 62 HI: 173 QRS: 70 QRSD: 101 T: 66 QT: 442 QTc: 429 Interpretive Statements SINUS BRADYCARDIA Compared to ECG 04/01/2022 18:18:59 Sinus rhythm no longer present Electronically Signed On 05-16-2023 16:03:57 CDT by Fidel Cheatham M.D. [email or web address].[employer]/store/Ov/[id number]/ecg/[id number]
--- NOTE | 2023-05-15 20:55 | XRR_ITS ---
PROCEDURE INFORMATION: Exam: XR Chest Exam date and time: 05/15/2023 9:11 PM Age: 57 years old Clinical indication: Pain; Chest pressure; Prior surgery; Surgery date: 6+ months; Surgery type: Pacemaker; Additional info: Cp TECHNIQUE: Imaging protocol: Radiologic exam of the chest. Views: 1 view. COMPARISON: CR XR chest 1V portable [id number] 04/01/2022 12:37 PM FINDINGS: Lungs: The lungs are clear. Unchanged left chest multi lead defibrillator. Pleural spaces: Unremarkable. No pleural effusion. No pneumothorax. Heart/Mediastinum: Unremarkable. No cardiomegaly. Bones/joints: Incidental internally fixed left clavicle. XR/XR chest 1V portable [id number] IMPRESSION: No change, lungs clear
[2023-05-15 20:59] VITALS: BMI 29.9
[2023-05-15 21:06] VITALS: BP 125/81; PULSE 56; RESP 16; O2SAT 95
[2023-05-15 21:17] LABS: Basophils % 0.4 %; Eosinophils # 0.3 10^3/uL (0.0-0.8); Eosinophils % 4.2 %; Hematocrit 45.3 % (42.0-52.0); Hemoglobin 14.8 g/dL (11.7-16.6); Lymphocytes # 2.2 10^3/uL (0.8-4.8); Lymphocytes % 31.4 %; Mean Corpuscular HGB Conc 32.7 g/dL (30.0-36.0); Mean Corpuscular Hemoglobin 29.1 pg (28.0-34.0); Mean Corpuscular Volume 89.2 fl (80-94); Mean Platelet Volume 9.8 fL (7.4-10.4); Monocytes # 0.8 10^3/uL (0.2-0.9); Monocytes % 11.9 %; Neutrophils # 3.58 10^3/uL (1.8-7.7); Neutrophils % 51.8 %; Nucleated Red Blood Cells % 0 %; Platelet Count 234 10^3/cmm (130-400); Red Blood Count 5.08 10^6/uL (4.1-5.3); Red Cell Distribution Width 14.2 % (12.1-15.1); White Blood Count 6.9 10^3/uL (4.0-10.0)
--- NOTE | 2023-05-15 21:23 | W.ED.CHESTPA ---
HPI - Chest Pain General: Chief Complaint: Chest Pain Stated Complaint: CP Time Seen by Provider: 05/15/23 20:53 Source: patient and EMS Mode of arrival: EMS Limitations: no limitations History of Present Illness: 57-year-old male who states he been having sharp chest pains over the last 4 days. States left-sided denies any worsening improving factors. He denies any shortness of breath or nausea he has had some diarrhea. He states he had been on oxycodone for 9 years and his PCP had recently stopped. States he is also concerned about his thyroid. Associated symptoms: Deny abdominal pain, dyspnea, fever(s), nausea or vomiting Review of Systems Const: Denies: fever(s) or chills ENMT: Denies: throat pain or dental pain Card: Reports: chest pain Resp: Denies: dyspnea GI: Reports: diarrhea; Denies: abdominal pain, nausea or vomiting : Denies: dysuria Musc: Denies: neck pain or back pain Skin/Breast: Denies: rash Neuro: Denies: headache(s) PFSH ED PFSH: Medical History Anxiety -f/u at [facility] -on Clonazepam ASHD (arteriosclerotic heart disease) Atrial fibrillation Remains in sinus rhythm. Continue current regimen CHF (congestive heart failure) -acute exacerbation, BNP-73 -Echo (05/2019): EF=61%, G1DD, trace MR, trace to mild TR, trace [place] -not on chronic diuretics; on IV Lasix -daily weights, monitor Is & Os; total negative fluid balance of 3.2 L Depression Elevated troponin -noted troponins with 2-hr delta of 10.40, 6hr troponin lower with no significant delta -serial ECGs, so far, no acute ischemic changes -telemetry monitoring -has known hx of non-ischemic cardiomyopathy s/p pacemaker/AICD -had prior nuclear stress testing done in 05/2019 showing small sized reversible perfusion abnormality of mild severity of apical inferior and apical lateral doherty that may represent small area of ischemia in LAD territory -Cardiology evaluation by Dr. Mendoza appreciated; IV diuresis -VSS; continue to monitor -received dose of therapeutic lovenox, ASA 325 mg in ED -on ASA -Echo (05/2019): EF=61%, G1DD, trace MR, trace to mild TR, trace [place] -noted lipid panel, A1c, TSH; start on statin -PAULINA -CXR unremarkable -unable to tolerate Imdur, persistent DUNN GERD (gastroesophageal reflux disease) Hyperlipidemia -started on statin, noted lipid panel Hypertension -initially hypertensive, BP well controlled -on oral antihypertensives -continue to monitor vital signs IBS (irritable bowel syndrome) Ingrown toenail of right foot with infection Nonischemic cardiomyopathy -f/u with Dr. Welsh -has pacemaker and AICD, no recent firing Surgical History S/P appendectomy S/P cholecystectomy S/P ICD (internal cardiac defibrillator) procedure Family History Mother Cancer Social History Smoking and tobacco status: never smoked Alcohol intake: former Substance/Drug Use: never Lives independently: Yes Physical Exam Const: COMMON NORMALS: no acute distress, patient oriented x3 and healthy appearing HENMT: COMMON NORMALS: normocephalic and atraumatic HEAD & SCALP: normocephalic and atraumatic Eye: COMMON NORMALS: Equal, round and reactive pupils present and EOMs intact bilaterally PUPIL: Yes Equal, round and reactive pupils present Neck/C-Spine: COMMON NORMALS: full ROM and supple Chest: COMMONS NORMALS: normal inspection of the chest and normal palpation of entire chest wall Resp: COMMON NORMALS: normal respiratory effort, No retractions, No use of accessory muscles and clear to auscultation bilaterally AUSCULTATION: clear to auscultation bilaterally Cardio: COMMON NORMALS: regular rate, regular rhythm and No murmurs present (Cardio) RATE: regular rate RHYTHM: regular rhythm GI: COMMON NORMALS: Normal to inspection, nondistended, normoactive bowel sounds present, Soft to palpation, non-tender and no masses PALPATION: Yes Soft to palpation Extremity: COMMON NORMALS: normal to inspection and full ROM Neuro: COMMON NORMALS: patient oriented x3, moves all extremities and no focal motor deficits Psych: COMMON NORMALS: mental status grossly normal, Normal thought process present and cooperative THOUGHT PROCESS: Normal thought process present Skin: COMMON NORMALS: no rashes or lesions noted and no wounds GENERAL SKIN EXAM: no rashes or lesions noted Course Vital Signs: Vital signs: Vital Signs Pulse Rate 48 L 05/15/23 22:56 Respiratory Rate 14 05/15/23 22:56 Blood Pressure 113/74 05/15/23 22:56 Pulse Oximetry 98 05/15/23 22:56 Oxygen Delivery Me thod Room Air 05/15/23 21:06 MDM - Chest Pain Medical Decision Making Patient presents with chest pain atypical in nature troponins here are negative he has no signs of pulmonary embolism or dissection. No signs of acute coronary syndrome he is stable for discharge she is to follow-up with cardiology return if worsening he understands agrees to plan. Medical Records I reviewed the patient's medical records. Lab Data I reviewed the patient's lab results. 05/15/23 21:09 05/15/23 21:09 Radiology Impressions Chest X-Ray 05/15/23 20:55 IMPRESSION: No change, lungs clear Laboratory Results WBC 6.9 10^3/uL (4.0-10.0) 05/15/23 21:09 RBC 5.08 10^6/uL (4.1-5.3) 05/15/23 21:09 Hgb 14.8 g/dL (11.7-16.6) 05/15/23 21:09 Hct 45.3 % (42.0-52.0) 05/15/23 21:09 MCV 89.2 fl (80-94) 05/15/23 21:09 MCH 29.1 pg (28.0-34.0) 05/15/23 21:09 MCHC 32.7 g/dL (30.0-36.0) 05/15/23 21:09 RDW 14.2 % (12.1-15.1) 05/15/23 21:09 Plt Count 234 10^3/cmm (130-400) 05/15/23 21:09 MPV 9.8 fL (7.4-10.4) 05/15/23 21:09 Neut % (Auto) 51.8 % 05/15/23 21:09 Lymph % (Auto) 31.4 % 05/15/23 21:09 [place] % (Auto) 11.9 % 05/15/23 21:09 Eos % (Auto) 4.2 % 05/15/23 21:09 Baso % (Auto) 0.4 % 05/15/23 21:09 Neut # (Auto) 3.58 10^3/uL (1.8-7.7) 05/15/23 21:09 Lymph # (Auto) 2.2 10^3/uL (0.8-4.8) 05/15/23 21:09 [place] # (Auto) 0.8 10^3/uL (0.2-0.9) 05/15/23 21:09 Eos # (Auto) 0.3 10^3/uL (0.0-0.8) 05/15/23 21:09 Baso # (Auto) 0.0 10^3/uL (0.0-0.1) 05/15/23 21:09 Nucleated RBC % (auto) 0 % 05/15/23 21:09 Nucleated RBCs # 0.0 /100WBC 05/15/23 21:09 PT 13.00 SECONDS (12.1-14.9) 05/15/23 21:09 INR 0.96 (0.8-1.2) 05/15/23 21:09 Sodium 143 mmol/L (136-145) 05/15/23 21:09 Potassium 3.7 mmol/L (3.5-5.1) 05/15/23 21:09 Chloride 106 mmol/L (98-107) 05/15/23 21:09 Carbon Dioxide 26 mmol/L (22-29) 05/15/23 21:09 Anion Gap 14.7 (5-19) 05/15/23 21:09 BUN 8 mg/dL (6-20) 05/15/23 21:09 Creatinine 0.8 mg/dL (0.7-1.2) 05/15/23 21:09 GFR Calculation 99.6 mL/min (90-130) 05/15/23 21:09 Glucose 96 mg/dL (65-115) 05/15/23 21:09 Calculated Osmolality 294 mOsm/kg (285-295) 05/15/23 21:09 Calcium 9.2 mg/dL (8.5-10.5) 05/15/23 21:09 Total Bilirubin 2.2 mg/dL (0.15-1.2) H 05/15/23 21:09 AST 14 U/L (0-40) 05/15/23 21:09 ALT 10 U/L (0-41) 05/15/23 21:09 Alkaline Phosphatase 96 U/L (40-130) 05/15/23 21:09 Troponin T Baseline 11 ng/L (0-15) 05/15/23 21:09 Troponin T 120 Minute 9.20 ng/L (0-15) 05/15/23 22:03 Delta Troponin T -1.8 ABS# (0-10) L 05/15/23 22:03 Total Protein 6.3 g/dL (6.6-8.7) L 05/15/23 21:09 Albumin 4.5 g/dL (3.5-5.2) 05/15/23 21:09 Globulin 1.8 g/dL (1.3-4.6) 05/15/23 21:09 Lipase 25 U/L (13-60) 05/15/23 21:09 TSH 1.98 uIU/mL (0.27-4.20) 05/15/23 21:09 EKG Data EKG 1: I personally reviewed and interpreted this EKG as follows: EKG interpretation date: 05/15/23 EKG interpretation time: 21:04 Interpretation: sinus herb hr [address] or t wave abnormalities qrs 101 qtc 434 Discharge Plan Discharge Patient Disposition: Home Clinical Impression: Chest pain Condition: Stable Prescriptions: No Action sotalol [Betapace] 120 mg tablet 120 mg PO BID magnesium oxide 500 mg capsule 500 mg PO DAILY aspirin [Adult Low Dose Aspirin] 81 mg tablet,delayed release (DR/EC) 81 mg PO DAILY cholecalciferol (vitamin D3) 10 mcg (400 unit) capsule 10 mcg PO DAILY testosterone cypionate 200 mg/mL oil 200 mg IM Q28D Discharge Orders: Discharge ED (Routine); Ordered 05/15/23 Ordered By: Herber Espinoza Referrals: Tash Zimmerman DO [Primary Care Provider] - 1-3 days Discharge Diet: Advance as tolerated Discharge Activity: Resume usual activity Patient Instructions: Chest Pain (ED) Coding Level of Care Code ED Near Eastern Archaeology Lecturer for Suad Hicks
[2023-05-15] MEDS: ondansetron 2 mg/ML SDV 2 mL 4 MG IVP (21:25)
[2023-05-15] MEDS: morphine 4 mg/mL SDV 1 mL IVP (21:25)
[2023-05-15 21:28] LABS: INR 0.96 (0.8-1.2)
--- NOTE | 2023-05-15 21:47 | PC.NURSE ---
Patient heart rhythm between SB and aflutter.
[2023-05-15 21:50] LABS: Troponin(5th) Baseline 11 ng/L (0-15)
--- NOTE | 2023-05-15 21:53 | ECG_ITS ---
[facility] Test Date: 2023-05-15 Pat Name: Andi Garcia Department: Room: Gender: Male Temperer: : 1965 Requested By: Herber Espinoza Order Number: [id number] Karen MD: Fidel Cheatham M.D. Measurements Intervals [place] Rate: 46 P: 48 [place]: 172 QRS: 47 QRSD: 101 T: 31 QT: 481 QTc: 422 Interpretive Statements SINUS BRADYCARDIA Compared to ECG 05/15/2023 21:04:34 No significant changes Electronically Signed On 05-16-2023 16:09:57 CDT by Fidel Cheatham M.D. [email or web address] [email or web address] baptist medical centerOmni Bio Pharmaceuticalcleveland clinic [facility].[employer]/store/Ov/[id number]
[2023-05-15 22:00] LABS: Alanine Aminotransferase 10 U/L (0-41); Albumin Level 4.5 g/dL (3.5-5.2); Alkaline Phosphatase 96 U/L (40-130); Anion Gap 14.7 (5-19); Aspartate Amino Transferase 14 U/L (0-40); Blood Urea Nitrogen 8 mg/dL (6-20); Calcium 9.2 mg/dL (8.5-10.5); Carbon Dioxide 26 mmol/L (22-29); Chloride 106 mmol/L (98-107); Globulin 1.8 g/dL (1.3-4.6); Glomerular Filtration Rate 99.6 mL/min (90-130); Glucose 96 mg/dL (65-115); Lipase 25 U/L (13-60); Osmolality Calculated 294 mOsm/kg (285-295); Potassium 3.7 mmol/L (3.5-5.1); Sodium 143 mmol/L (136-145); Thyroid Stimulating Hormone 1.98 uIU/mL (0.27-4.20); Total Bilirubin 2.2 mg/dL (0.15-1.2); Total Protein 6.3 g/dL (6.6-8.7)
[2023-05-15 22:49] LABS: Troponin 5 2HR Delta -1.8 ABS# (0-10)
[2023-05-15 22:56] VITALS: BP 113/74; PULSE 48; RESP 14; O2SAT 98
--- NOTE | 2023-05-16 12:25 | DCPLANNER ---
Addendum entered by Kamla Hernandez 05/21/23 07:44: Patient had a follow up appointment scheduled for 05.20.23 at [facility] - patient did attend appointment. Original Note: assistant account manager had message to schedule a follow up appointment for patient with cardiology. assistant account manager sent patients information to the front office staff at [facility]. Patients information will be printed and reviewed. Clinic will call patient with appointment information.
== END 2023-05-15 23:13 | disposition home or self-care (01) ==
PROVIDERS: Emergency Provider Emergency Medicine; PCP Family Medicine
DX: R07.9 Chest pain, unspecified (principal); I11.0 Hypertensive heart disease with heart failure; I50.9 Heart failure, unspecified; E78.5 Hyperlipidemia, unspecified; Z79.899 Other long term (current) drug therapy; Z79.82 Long term (current) use of aspirin; Z95.0 Presence of cardiac pacemaker
CPT/HCPCS: 36415; 71045; 80053; 83690; 84443; 84484; 85025; 85610; 93005; 96374; 96375; 99285; J2270; J2405

== ENCOUNTER → 2023-05-20 10:36 | Outpatient (BNVA) | payer MEDICARE, MEDICAID, SELFPAY | PROVIDERS: PCP Family Medicine; Visit Provider Internal Medicine Cardiovascular Disease | DX: I11.0 Hypertensive heart disease with heart failure (principal); I50.9 Heart failure, unspecified; E78.5 Hyperlipidemia, unspecified; I47.20 Ventricular tachycardia, unspecified; I48.11 Longstanding persistent atrial fibrillation; Z45.02 Encounter for adjustment and management of automatic implantable cardiac defibrillator | CPT/HCPCS: 99215 ==

== ENCOUNTER 2023-06-06 06:02 | Outpatient (CLI) | payer MEDICARE, MEDICAID, SELFPAY ==
[2023-06-06] VITALS (11 sets, daily range): BP systolic 105–149; BP diastolic 58–86; PULSE 63–95; RESP 15–24; TEMP 36.7–36.9; O2SAT 93–98; BMI 30.7
[2023-06-06 06:34] LABS: Basophils # 0.1 10^3/uL (0.0-0.1); Basophils % 0.9 %; Eosinophils # 0.3 10^3/uL (0.0-0.8); Eosinophils % 3.7 %; Hematocrit 48.8 % (37-53); Lymphocytes # 2.1 10^3/uL (0.8-4.8); Lymphocytes % 26.2 %; Mean Corpuscular Hemoglobin 29.4 pg (27-33); Mean Corpuscular Volume 89.1 fl (82-101); Monocytes # 0.9 10^3/uL (0.2-0.9); Monocytes % 11.8 %; Neutrophils # 4.47 10^3/uL (1.8-7.7); Neutrophils % 57.1 %; Nucleated Red Blood Cells % 0 %; Platelet Count 309 10^3/cmm (157-399); Red Blood Count 5.48 10^6/uL (3.85-5.65); Red Cell Distribution Width 13.2 % (12.1-15.1); White Blood Count 7.82 10^3/uL (3.29-11.43)
[2023-06-06 06:52] LABS: Anion Gap 13.9 (5-19); Blood Urea Nitrogen 15 mg/dL (6-20); Carbon Dioxide 26 mmol/L (22-29); Chloride 102 mmol/L (98-107); Glomerular Filtration Rate 99.6 mL/min (90-130); Glucose 162 mg/dL (65-115); Osmolality Calculated 290 mOsm/kg (285-295); Potassium 3.9 mmol/L (3.5-5.1); Sodium 138 mmol/L (136-145)
--- NOTE | 2023-06-06 07:08 | W.PM.OPSUD ---
Surgery/Procedure H&P Update DATE OF PROCEDURE: June 06, 2023 DATE H&P PERFORMED: 05/20/23 H&P UPDATE INFORMATION: I have reviewed H&P completed within last 30 days, I have examined patient prior to procedure and No changes to prior documentation PREOP DIAGNOSIS: CLAUDIA of the ICD PRIMARY INDICATION FOR PROCEDURE: Patient with a history of paroxysmal atrial fibrillation and V. tach, the device was found to have CLAUDIA PLANNED PROCEDURE: Operation Date: 06/06/23 07:00 Proposed Procedures p Gen only ICD dual 53482,Z45.02,I42.8(Left) - Viviana Hernández MD PATIENT REASSESSED PRIOR TO SEDATION, WITH NO CHANGE NOTED: Yes PHYSICAL EXAM: alert, oriented x 3, clear to auscultation bilaterally and regular rate & rhythm AIRWAY EVAL/ANESTHESIA PLAN: normal airway, see other exam findings, ASA III, Monitored Anesthesia, Local Anesthesia, Risks, benefits & alternatives of sedation and/or procedure discussed and Patient agrees to continue as planned
--- NOTE | 2023-06-06 08:24 | PM.OP ---
Operative Report Date of procedure: June 06, 2023 Pre-op diagnosis: Preop Diagnosis CLAUDIA of the ICD Procedure: PROCEDURE: ICD REVISION PREOPERATIVE DIAGNOSIS: ICD elective replacement indication. POSTOPERATIVE DIAGNOSIS: ICD elective replacement indication. ESTIMATED BLOOD LOSS: none COMPLICATIONS: None. BRIEF HISTORY: The patient is 57-year-old white [male] who had a ICD implantation for ventricular tachycardia/paroxysmal atrial fibrillation. The patient was found to have elective replacement indication, during routine office followup evaluation. For further management of patient's condition the patient required an ICD revision. Patient has a history of hypertension, hyperlipidemia, nonischemic cardiomyopathy, ventricular tachycardia and paroxysmal atrial fibrillation The procedure was explained to the patient and his in detail with the risks and benefits. The risks of bleeding, hematoma, vascular injury, infection and other concomitant complications were explained in detail, which the patient understood well and consented to proceed. PROCEDURES PERFORMED: 1. Explantation of the old ICD device . 2. Implantation of the new ICD device The patient brought to the Cardiac Oil Truck Driver. The left side of the neck and the subclavian area were cleaned and draped in a sterile fashion. 1% Xylocaine was used for local anesthetic agent. A 2 inch long incision was made just below the previous pacemaker scar. By sharp and blunt dissection, the ICD pocket was accessed. The old generator was delivered from the pocket. The generator was detached from the lead[s]. The new generator was attached to the lead. The ICD pocket was copiously irrigated with vancomycin solution. Complete hemostasis was achieved. The lead was positioned behind the generator and the generator was attached to the pectoralis fascia by suturing with 0 Surgilon. Sponge counts were confirmed. The ICD pocket was closed in layers. Skin was approximated using 4-0 Vicryl. EXPLANTED DEVICE: ICD Device: Date of implant 10/10/2010 Brand: Telogen. Model number: E1 10. Serial number: [id number]. IMPLANTED DEVICES: Ventricular Lead: Date of implantation: 05/01/2000 Model number: [id number] Serial number: [id number] Make: Guidant . Atrial Lead Date of implantation -05/14/1999 Model number 4568 Serial number L [id number] Make: Medtronic Implanted Generator: Date of implantation 06/06/2023 Brand: Mindjetagen EL ICD IS-1/DF-1-DR Model number: D1 5 3 Serial number: [id number] Make: [employer]Nation Stimulation Threshold: Through the Device--the ventricular sensing was 7.2 millivolts. Lead impedance was thousand 80 and the pacing threshold was 1.9 V volts at 1.0 milliseconds. The atrial sensing was 2.1 millivolts. The lead impedance was 482 ohms and the pacing threshold was 1.0 volts at 0.4 ms. The HV lead impedance was 50 ohms The pacemaker was set for [DDDR] mode with an upper rate of [130] and a lower rate of [60]. The DFT testing was not done Ventricular tachycardia detection rate was set at 170 bpm The ventricular fibrillation detection rate was set at 200 bpm A pressure dressing was applied over the ICD site. The patient was transferred back to medical floor in stable condition.
--- NOTE | 2023-06-06 09:15 | PC.NURSE ---
Pt transferred down to CSU 111-2 via wheelchair. Pt alert and oriented X 4. Denies pain. Pressure dressing to left upper chest, clean dry and intact. No signs of bleeding or hematoma. Report given to CÉSAR Chang .
[2023-06-06] MEDS: aspirin 81 mg EC Tablet PO (10:47)
[2023-06-06] MEDS: magnesium oxide 400 mg tablet PO (10:47)
[2023-06-06] MEDS: CLONazepam 1 mg Tablet PO ×2 (10:47→20:36)
[2023-06-06] MEDS: ceFAZolin 2,000 MG in sodium chloride 0.9% (plus) 50 ML 100 MG IV ×2 (13:12→20:36)
[2023-06-06] MEDS: HYDROcodone-acetaminophen 5-325 mg Tablet 1 TAB PO ×2 (13:12→20:36)
[2023-06-06] MEDS: sotalol 80 mg Tablet 120 MG PO (18:05)
--- NOTE | 2023-06-06 18:45 | PC.NURSE ---
med pt has klonopin order for 6 pm. he does not want to take it at this time and he said he usually take it at home around 9 pm. klonopin returned to [employer]. eyewitness returned w/ CÉSAR Beverly.
--- NOTE | 2023-06-06 19:14 | PC.NURSE ---
Patient is s/p AICD generator change. Pressure dressing in place to left upper chest. Patient report mild tenderness presently. No s/s of bleeding or hematoma formation. Discussed plan for tonight. Patient verbalized understanding. Will continue to monitor.
--- NOTE | 2023-06-06 19:16 | PC.NURSE ---
shift report received pt from mill laborer post generator change on his aicd/pacemaker around 9:30 Am. Pt is alert,awake, orientedx4. denies any pain or discomfort. pressure dressings intact on left upper chest incision area, no hematoma, bleeding or swelling noted. provided pt w/arm sling as ordered. v/s monitored, call light provided to pt. treatment goals and meds discuss to pt. pt verbalizes understanding.
[2023-06-06] MEDS: temazepam 15 mg Capsule PO (22:03)
--- NOTE | 2023-06-06 22:06 | PC.NURSE ---
Patient requesting something for sleep. Telephoned Dr Hernández and received onetime order for Restoril 15mg PO. RBVO
[2023-06-07 04:00] VITALS: BP 95/70; PULSE 73; RESP 19; TEMP 36.7; O2SAT 97
[2023-06-07] MEDS: ceFAZolin 2,000 MG in sodium chloride 0.9% (plus) 50 ML 100 MG IV (04:56)
--- NOTE | 2023-06-07 05:00 | PC.NURSE ---
Patient reports removing his pressure dressing from left upper chest. Reports was not able to sleep with it on due to increased pain to site. Does stated, it is still sore but tolerable.
[2023-06-07 05:04] VITALS: PULSE 75
--- NOTE | 2023-06-07 06:00 | ECG_ITS ---
[facility] Test Date: 2023-06-07 Pat Name: Andi Garcia Department: Room: 111 Gender: Male Supervisor Electrolytic Tinning: : 1965 Requested By: Viviana Hernández Order Number: [id number] Karen MD: Viviana Hernández M.D. Measurements Intervals [place] Rate: 72 P: 66 NV: 180 QRS: 70 QRSD: 116 T: 63 QT: 393 QTc: 431 Interpretive Statements SINUS RHYTHM MODERATE INTRAVENTRICULAR CONDUCTION DELAY [110+ ms QRS DURATION] Compared to ECG 05/15/2023 21:53:49 Intraventricular conduction delay now present Sinus bradycardia no longer present Electronically Signed On 06-07-2023 18:19:58 CDT by Viviana Hernández M.D. [email or web address] specialty [email or web address] valley health system [facility].[employer]/store/OM/[id number]
[2023-06-07] MEDS: HYDROcodone-acetaminophen 5-325 mg Tablet 1 TAB PO (06:07)
--- NOTE | 2023-06-07 08:22 | PM.PN ---
Subjective Subjective: The patient is doing okay with no chest pain or shortness of breath. Pacemaker site has no hematoma bleeding. The vital signs are stable. He is remaining afebrile. Medications: Medication Review Details: Current Medications Hydrocodone Bitart/Acetaminophen (Hydrocodone-Acetaminophen 5-325 Mg Tablet) 1 tab PO Q6H PRN PRN Reason: MODERATE PAIN Last Admin: 06/07/23 06:07 Dose: 1 tab Aspirin (Aspirin 81 Mg Ec Tablet) 81 mg PO DAILY [facility] Last Admin: 06/06/23 10:47 Dose: 81 mg Clonazepam (Clonazepam 1 Mg Tablet) 1 mg PO BID [facility] Last Admin: 06/06/23 20:36 Dose: 1 mg Magnesium Oxide (Magnesium Oxide 400 Mg Tablet) 400 mg PO DAILY [facility] Last Admin: 06/06/23 10:47 Dose: 400 mg Non-Formulary Medication (Doxycycline Hyclate) 20 mg PO QID [facility] Last Admin: 06/06/23 20:48 Dose: Not Given Sotalol HCl (Sotalol 80 Mg Tablet) 120 mg PO BID [facility] Last Admin: 06/06/23 18:05 Dose: 120 mg Vitals/I&O/Wt Last Vital Signs Temp 98.1 F 06/07/23 04:00 Pulse 75 06/07/23 05:04 Resp 19 H 06/07/23 04:00 BP 95/70 06/07/23 04:00 Pulse Ox 97 06/07/23 04:00 O2 Del Method Room Air 06/07/23 04:00 06/06/23 06/07/23 06/07/23 22:59 06:59 14:59 Intake Total 1480 / 1890 1030 / 2920 Balance 1480 / 1890 1030 / 2920 Weight last 48 hrs Weight 239 lb Physical Exam Narrative: GENERAL: The patient is alert and oriented times three. Not in any acute distress. HEENT: No significant pallor, icterus or lymphadenopathy.Oral cavity: There are no mucous membrane lesions. NECK: Trachea appears to be central. No masses noted. No JVD or thyromegaly appreciated. RESPIRATORY: The pacemaker site has no hematoma bleeding. Sounds regular bilaterally with no rales or rhonchi. BREASTS: Deferred. HEART: The heart sounds are normal. No S3 or S4. No significant murmurs. No pericardial rub ABDOMEN: No vessel pulsations or distention. No tenderness. No organomegaly appreciated. Bowel sounds are normally heard. : Deferred. RECTAL: Deferred. LYMPHATIC: No lymphadenopathy noted in the neck. EXTREMITIES: No edema or cyanosis. No clubbing. MUSCULOSKELETAL: No acute joint deformities or swelling SKIN: There are no significant rashes or ecchymosis NEUROPSYCHIATRIC: The patient is alert and oriented x3. Appears to be in a good mood. No tremors or rigidity noted. Data 06/06/23 06:27 06/06/23 06:27 Other Labs: Laboratory Last Values WBC 7.82 10^3/uL (3.29-11.43) 06/06/23 06: RBC 5.48 10^6/uL (3.85-5.65) 06/06/23 06: Hgb 16.10 g/dL (11.27-16.99) 06/06/23 06:27 Hct 48.8 % (37-53) 06/06/23 06: MCV 89.1 fl (82-101) 06/06/23 06: MCH 29.4 pg (27-33) 06/06/23 06: MCHC 33.0 g/dL (30-55) 06/06/23 06: RDW 13.2 % (12.1-15.1) 06/06/23 06:27 Plt Count 309 10^3/cmm (157-399) 06/06/23 06:27 MPV 9.0 fL (7.4-10.4) 06/06/23 06:27 Neut % (Auto) 57.1 % 06/06/23 06:27 Lymph % (Auto) 26.2 % 06/06/23 06:27 Will % (Auto) 11.8 % 06/06/23 06:27 Eos % (Auto) 3.7 % 06/06/23 06:27 Baso % (Auto) 0.9 % 06/06/23 06:27 Neut # (Auto) 4.47 10^3/uL (1.8-7.7) 06/06/23 06:27 Lymph # (Auto) 2.1 10^3/uL (0.8-4.8) 06/06/23 06:27 Will # (Auto) 0.9 10^3/uL (0.2-0.9) 06/06/23 06:27 Eos # (Auto) 0.3 10^3/uL (0.0-0.8) 06/06/23 06:27 Baso # (Auto) 0.1 10^3/uL (0.0-0.1) 06/06/23 06:27 Nucleated RBC % (auto) 0 % 06/06/23 06:27 Nucleated RBCs # 0.0 /100WBC 06/06/23 06:27 Sodium 138 mmol/L (136-145) 06/06/23 06:27 Potassium 3.9 mmol/L (3.5-5.1) 06/06/23 06:27 Chloride 102 mmol/L (98-107) 06/06/23 06:27 Carbon Dioxide 26 mmol/L (22-29) 06/06/23 06:27 Anion Gap 13.9 (5-19) 06/06/23 06:27 BUN 15 mg/dL (6-20) 06/06/23 06:27 Creatinine 0.8 mg/dL (0.7-1.2) 06/06/23 06:27 GFR Calculation 99.6 mL/min (90-130) 06/06/23 06:27 Glucose 162 mg/dL (65-115) H 06/06/23 06:27 Calculated Osmolality 290 mOsm/kg (285-295) 06/06/23 06:27 Calcium 9.0 mg/dL (8.5-10.5) 06/06/23 06:27 A&P Assessment and plan (1) AICD at end of battery life: Status post ICD revision. Patient is remaining stable with no specific symptoms. (2) Hypertension: Currently normotensive. Continue on the current medications. Qualifiers: Hypertension type: essential hypertension Qualified Code(s): I10 - Essential (primary) hypertension (3) ASHD (arteriosclerotic heart disease): Currently stable. No chest pain or other specific cardiac symptoms. (4) Hyperlipidemia: We will continue on the current medications Qualifiers: Hyperlipidemia type: unspecified Qualified Code(s): E78.5 - Hyperlipidemia, unspecified (5) Nonischemic cardiomyopathy: Patient has improved LV ejection fraction. (6) Ventricular tachycardia: Has not had any recent recurrence of the arrhythmia. Plan Since the patient is remaining stable, will be discharged home today. Post pacemaker instructions were given. ICM is going to be interrogated today. After reviewing the interrogation data, final recommendations will be made Attestations Medical Necessity Statement*: Discharge home today. Coding Level of Care Code 62047 Diagnoses AICD at end of battery life Z45.02 Hypertension I10 Hypertension type: essential hypertension ASHD (arteriosclerotic heart disease) I25.10 Hyperlipidemia E78.5 Hyperlipidemia type: unspecified Nonischemic cardiomyopathy I42.8 Ventricular tachycardia I47.20
[2023-06-07 08:40] VITALS: BP 120/80; PULSE 89; RESP 12; TEMP 36.6; O2SAT 97
[2023-06-07] MEDS: aspirin 81 mg EC Tablet PO (09:11)
[2023-06-07] MEDS: CLONazepam 1 mg Tablet PO (09:11)
[2023-06-07] MEDS: sotalol 80 mg Tablet 120 MG PO (09:11)
[2023-06-07] MEDS: magnesium oxide 400 mg tablet PO (09:12)
--- NOTE | 2023-06-07 10:31 | PC.NURSE ---
Discharge Note Patient discharged to home via POV accompanied by self. Discharge instructions reviewed with patient and/or patient relations representative. Mobile pharmacy medications and/or prescriptions provided. Belongings/home medications returned.
== END 2023-06-07 10:31 | disposition home or self-care (01) ==
LOC: CCL 06:04 → CSU 09:41
PROVIDERS: Visit Provider Internal Medicine Cardiovascular Disease
DX: I10 Essential (primary) hypertension; I25.10 Atherosclerotic heart disease of native coronary artery without angina pectoris; E78.5 Hyperlipidemia, unspecified; I42.8 Other cardiomyopathies; I47.20 Ventricular tachycardia, unspecified
CPT/HCPCS: 33240; 33264; 36415; 80048; 85025; 93005; 96361; 96365; 96367; 97165; 99152; 99153; A4216; C1721; C1769; J0690; J2250; J2704; J3010; J3370; J7030; J7050

== ENCOUNTER 2023-06-22 10:30 | Emergency (ER) | payer MEDICARE, MEDICAID, SELFPAY ==
[2023-06-22 10:34] VITALS: BP 110/89; PULSE 68; RESP 18; TEMP 36.7; O2SAT 98; BMI 29.5
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
--- NOTE | 2023-06-22 10:48 | ECG_ITS ---
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 Measurements Intervals [place] Rate: 69 P: 53 [place]: 173 QRS: 61 QRSD: 100 T: 59 QT: 396 QTc: 427 Interpretive Statements SINUS RHYTHM MINIMAL ST DEPRESSION [0.025+ mV ST DEPRESSION] Compared to ECG 06/07/2023 05:08:43 ST (T wave) deviation now present Intraventricular conduction delay no longer present Electronically Signed On 06-22-2023 13:59:05 CDT by Efren Welsh M.D. [id number]
[2023-06-22 11:19] LABS: Basophils % 0.4 %; Eosinophils # 0.4 10^3/uL (0.0-0.8); Eosinophils % 5.1 %; Hematocrit 46.4 % (37-53); Lymphocytes # 1.4 10^3/uL (0.8-4.8); Mean Corpuscular HGB Conc 33.6 g/dL (30-55); Mean Corpuscular Hemoglobin 30.1 pg (27-33); Mean Corpuscular Volume 89.4 fl (82-101); Mean Platelet Volume 9.1 fL (7.4-10.4); Monocytes # 0.8 10^3/uL (0.2-0.9); Monocytes % 11.1 %; Neutrophils # 4.61 10^3/uL (1.8-7.7); Nucleated Red Blood Cells % 0 %; Platelet Count 248 10^3/cmm (157-399); Red Blood Count 5.19 10^6/uL (3.85-5.65); Red Cell Distribution Width 13.3 % (12.1-15.1); White Blood Count 7.21 10^3/uL (3.29-11.43)
[2023-06-22 11:38] LABS: Alanine Aminotransferase 13 U/L (0-41); Albumin Level 4.4 g/dL (3.5-5.2); Alkaline Phosphatase 101 U/L (40-130); Anion Gap 12.3 (5-19); Aspartate Amino Transferase 18 U/L (0-40); Blood Urea Nitrogen 10 mg/dL (6-20); Calcium 9.4 mg/dL (8.5-10.5); Carbon Dioxide 28 mmol/L (22-29); Chloride 104 mmol/L (98-107); Globulin 2.3 g/dL (1.3-4.6); Glomerular Filtration Rate 99.6 mL/min (90-130); Glucose 179 mg/dL (65-115); Osmolality Calculated 294 mOsm/kg (285-295); Potassium 4.3 mmol/L (3.5-5.1); Sodium 140 mmol/L (136-145); Total Bilirubin 1.1 mg/dL (0.15-1.2); Total Protein 6.7 g/dL (6.6-8.7)
== END 2023-06-22 13:50 | disposition home or self-care (01) ==
PROVIDERS: Emergency Provider Family Medicine; PCP Nurse Practitioner Family
DX: S00.01XA Abrasion of scalp, initial encounter (principal); Z79.82 Long term (current) use of aspirin; S01.112A Laceration without foreign body of left eyelid and periocular area, initial encounter; I11.0 Hypertensive heart disease with heart failure; I50.9 Heart failure, unspecified; E78.5 Hyperlipidemia, unspecified; Z95.810 Presence of automatic (implantable) cardiac defibrillator; V89.2XXA Person injured in unspecified motor-vehicle accident, traffic, initial encounter
CPT/HCPCS: 70450; 71045; 71260; 72125; 74177; 80053; 85025; 93005; 99285; Q9967

== ENCOUNTER 2023-07-24 03:07 | Emergency (ER) | payer MEDICARE, MEDICAID, SELFPAY ==
[2023-07-24 03:30] VITALS: BP 134/104; PULSE 98; RESP 16; TEMP 37.1; O2SAT 98; BMI 27.8
[2023-07-24 03:32] VITALS: BP 134/104; PULSE 92; RESP 16; O2SAT 96
--- NOTE | 2023-07-24 03:40 | XRR_ITS ---
PROCEDURE INFORMATION: Exam: XR Chest Exam date and time: 07/24/2023 3:43 AM Age: 57 years old Clinical indication: Pain; Right-sided; Additional info: Pain after physical tx to right posterior ribs. TECHNIQUE: Imaging protocol: Radiologic exam of the chest. Views: 2 views. COMPARISON: CT chest abdpel w/*[id number] 06/22/2023 11:16 AM FINDINGS: Tubes, catheters and devices: Left-sided cardiac pacemaker again noted. Lungs: No CHF/pulmonary edema. Visible lungs appear essentially clear. Pleural spaces: No visible pneumothorax. No definite pleural fluid. Heart/Mediastinum: Heart size is within normal limits. Bones/joints: Old surgically fixated left clavicle fracture. XR/XR chest 2V* [id number] IMPRESSION: 1. No definite CHF or pneumonia. 2. Other findings discussed above.
[2023-07-24] MEDS: ketorolac 60 mg/2 mL INJ IM (03:55)
[2023-07-24 04:00] VITALS: BP 144/84; PULSE 90; RESP 16; O2SAT 99
[2023-07-24 04:52] VITALS: BP 142/81; PULSE 79; RESP 16; O2SAT 96
[2023-07-24] MEDS: orphenadrine 30 mg/mL Inj 2 mL 60 MG IM (04:56)
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
[2023-07-24 05:21] VITALS: BP 130/81; PULSE 80; RESP 16; O2SAT 95
[2023-07-24 05:28] VITALS: BP 130/81; PULSE 80; RESP 16; TEMP 37.1; O2SAT 95
== END 2023-07-24 05:28 | disposition home or self-care (01) ==
PROVIDERS: Emergency Provider Emergency Medicine; PCP Nurse Practitioner Family
DX: M54.6 Pain in thoracic spine (principal); Z79.82 Long term (current) use of aspirin; Z95.810 Presence of automatic (implantable) cardiac defibrillator; I11.0 Hypertensive heart disease with heart failure; I50.9 Heart failure, unspecified; E78.5 Hyperlipidemia, unspecified
CPT/HCPCS: 71046; 96372; 99284; J1885; J2360

== ENCOUNTER 2023-08-17 21:16 | Emergency (ER) | payer MEDICARE, MEDICAID, SELFPAY ==
[2023-08-17 21:21] VITALS: BMI 29.1
[2023-08-17 21:24] VITALS: BP 128/81; PULSE 80; RESP 16; TEMP 36.7; O2SAT 97
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
[2023-08-17] MEDS: lidocaine 5% Patch 1 PATCH TOPICAL (22:46)
[2023-08-17 23:22] VITALS: BP 122/72; PULSE 74; RESP 18; O2SAT 94
== END 2023-08-17 23:55 | disposition home or self-care (01) ==
PROVIDERS: Emergency Provider Physician Assistant; PCP Nurse Practitioner Family
DX: M51.34 Other intervertebral disc degeneration, thoracic region (principal); M48.04 Spinal stenosis, thoracic region; Z79.82 Long term (current) use of aspirin; Z95.810 Presence of automatic (implantable) cardiac defibrillator; I11.0 Hypertensive heart disease with heart failure; I50.9 Heart failure, unspecified; E78.5 Hyperlipidemia, unspecified
CPT/HCPCS: 72128; 99284

== ENCOUNTER 2023-08-22 09:33 | Emergency (ER) | payer MEDICARE, MEDICAID, SELFPAY ==
[2023-08-22 09:40] VITALS: BP 132/81; PULSE 101; RESP 16; TEMP 37.1; O2SAT 98; BMI 29.5
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
[2023-08-22] MEDS: ketorolac 30 mg/mL INJ IM (10:19)
[2023-08-22] MEDS: HYDROcodone-acetaminophen 5-325 mg Tablet 1 TAB PO (10:20)
--- NOTE | 2023-08-22 10:29 | PC.PHAR ---
PT STATES CANNOT TAKE ANY KIND OF MUSCLE RELAXER DUE TO IMPLANT. MANY MEDS WERE DISCONTINUED DUE TO NO LONGER TAKING.ALBUTEROL INHALER, ASPIRIN 81 MG, DICLOFENAC SOD. 75 MG, DOXYCYLINE HYC. 20 MG, LIDOCAINE PATCHES, CELEBREX 100 MG, CYCLOBENZAPRINE 10 MG, ATORVASTATIN 20 MG. TIZANINDINE 4 MG.
[2023-08-22 11:15] VITALS: BP 124/83; PULSE 78; O2SAT 96
== END 2023-08-22 11:17 | disposition home or self-care (01) ==
PROVIDERS: Emergency Provider Emergency Medicine; PCP Nurse Practitioner Family
DX: S20.211A Contusion of right front wall of thorax, initial encounter (principal); V89.2XXA Person injured in unspecified motor-vehicle accident, traffic, initial encounter; I11.0 Hypertensive heart disease with heart failure; I50.9 Heart failure, unspecified; I42.8 Other cardiomyopathies; E78.5 Hyperlipidemia, unspecified; Z95.810 Presence of automatic (implantable) cardiac defibrillator
CPT/HCPCS: 71101; 96372; 99284; J1885

== ENCOUNTER 2023-09-05 12:17 | Emergency (ER) | payer MEDICARE, MEDICAID, SELFPAY ==
--- NOTE | 2023-09-05 12:22 | ED_ITS ---
HPI - GI Bleed General: Chief complaint: GI Bleed Stated complaint: anal bleeding Time Seen by Provider: 09/05/23 12:20 History of Present Illness: 61-year-old male presents emergency department with complaints that he is having bleeding from his rectum. He states that he feels like there is something hanging out of his anus. He states this morning when he woke up he had a signif icant amount of blood over his underwear and his pants and he states that he noticed itching and burning to the area for the previous 3 days. He denies dizziness or lightheaded feeling. He denies vomiting or nausea. He denies known injury or trauma. He states the bleeding is now controlled but was concerned because he does not know what it could be. Review of Systems General: Reports: 10 or more systems reviewed and unremarkable except in HPI and below GI: Reports: rectal pain and hematochezia [facility] ED PFSH: Medical History Anxiety -f/u at [facility] -on Clonazepam ASHD (arteriosclerotic heart disease) Atrial fibrillation Remains in sinus rhythm. Continue current regimen CHF (congestive heart failure) -acute exacerbation, BNP-73 -Echo (05/2019): EF=61%, G1DD, trace MR, trace to mild TR, trace [place] -not on chronic diuretics; on IV Lasix -daily weights, monitor Is & Os; total negative fluid balance of 3.2 L Depression Elevated troponin -noted troponins with 2-hr delta of 10.40, 6hr troponin lower with no signifi cant delta -serial ECGs, so far, no acute ischemic changes -telemetry monitoring -has known hx of non-ischemic cardiomyopathy s/p pacemaker/AICD -had prior nuclear stress testing done in 05/2019 showing small sized reversible perfusion abnormality of mild severity of apical inferior and apical lateral doherty that may represent small area of ischemia in LAD territory -Cardiology evaluation by Dr. Mendoza appreciated; IV diuresis -VSS; continue to monitor -received dose of therapeutic lovenox, ASA 325 mg in ED -on ASA -Echo (05/2019): EF=61%, G1DD, trace MR, trace to mild TR, trace [place] -noted lipid panel, A1c, TSH; start on statin -PAULINA -CXR unremarkable -unable to tolerate Imdur, persistent DUNN GERD (gastroesophageal reflux disease) Hyperlipidemia -started on statin, noted lipid panel Hypertension -initially hypertensive, BP well controlled -on oral antihypertensives -continue to monitor vital signs IBS (irritable bowel syndrome) Ingrown toenail of right foot with infection Nonischemic cardiomyopathy -f/u with Dr. Welsh -has pacemaker and AICD, no recent firing Surgical History S/P appendectomy S/P cholecystectomy S/P ICD (internal cardiac defibrillator) procedure Family History Mother Cancer Social History Smoking and tobacco/nicotine status: never used tobacco/nicotine Alcohol intake: former Substance/Drug Use: never Lives independently: Yes Physical Exam Narrative: EXAM NARRATIVE: Constitutional: the patient appears well nourished and of normal development. Vital signs as documented. No acute distress at present. Alert and oriented-to person, place, time and situation. Head, eyes, ears, nose, mouth, throat: Normocephalic, atraumatic. Pupils-equal, round, reactive to light. No scleral icterus. Normal-appearing external ears. Normal appearing nasal turbinates, no drainage. No obvious oral lesions, posterior oropharynx without erythema or exudates. Neck: Supple, trachea is midline, no lymphadenopathy, no jugular venous distension, thyromegaly, or carotid bruits. Carotid upstrokes are brisk bilaterally. Lungs: clear to auscultation to all lung woodson. Symmetrical rise and fall of chest, no obvious signs of increased work of breathing at present. Cardiac: Regular rate and rhythm, positive S1, S2. No murmurs, rubs or gallops that I can appreciate Abdomen: Soft, non-tender to palpation, normal active bowel sounds to all quadrants. No palpable masses, no organomegaly and abdominal bruits. There is a moderate sized thrombosed external hemorrhoid that at present is not actively bleeding. Extremities: 2+ pulses in the upper extremities that are equal bilaterally, 2+ pulses in the lower extremities that are equal bilaterally. Non-edematous. Moves all extremities well, sensation to all extremities are noted. Skin: Warm, dry, intact. Course Vital Signs: Vital signs: Vital Signs Temperature 98.6 F 09/05/23 12:25 Pulse Rate 88 09/05/23 12:37 Respiratory Rate 17 09/05/23 12:37 Blood Pressure 103/72 09/05/23 12:37 Pulse Oximetry 95 09/05/23 12:37 Oxygen Delivery Me thod Room Air 09/05/23 12:37 MDM - GI Bleed Medical Decision Making Physical exam completed, I will obtain a CBC and CMP to evaluate the patient's hemoglobin level. I have discussed supportive care and treatment with the patient regarding his external hemorrhoid as well as follow-up with general surgery or gastroenterology for removal of his external hemorrhoid. Medical Records I reviewed the patient's medical records. Lab Data I reviewed the patient's lab results. 09/05/23 12:31 09/05/23 12:31 Laboratory Results WBC 8.27 10^3/uL (3.29-11.43) 09/05/23 12:31 RBC 5.17 10^6/uL (3.85-5.65) 09/05/23 12:31 Hgb 15.30 g/dL (11.27-16.99) 09/05/23 12:31 Hct 46.2 % (37-53) 09/05/23 12:31 MCV 89.4 fl (82-101) 09/05/23 12:31 MCH 29.6 pg (27-33) 09/05/23 12:31 MCHC 33.1 g/dL (30-55) 09/05/23 12:31 RDW 12.2 % (12.1-15.1) 09/05/23 12:31 Plt Count 284 10^3/cmm (157-399) 09/05/23 12:31 MPV 8.9 fL (7.4-10.4) 09/05/23 12:31 Neut % (Auto) 63.3 % 09/05/23 12:31 Lymph % (Auto) 20.7 % 09/05/23 12:31 [place] % (Auto) 10.0 % 09/05/23 12:31 Eos % (Auto) 4.6 % 09/05/23 12:31 Baso % (Auto) 1.0 % 09/05/23 12:31 Neut # (Auto) 5.24 10^3/uL (1.8-7.7) 09/05/23 12:31 Lymph # (Auto) 1.7 10^3/uL (0.8-4.8) 09/05/23 12:31 [place] # (Auto) 0.8 10^3/uL (0.2-0.9) 09/05/23 12:31 Eos # (Auto) 0.4 10^3/uL (0.0-0.8) 09/05/23 12:31 Baso # (Auto) 0.1 10^3/uL (0.0-0.1) 09/05/23 12:31 Nucleated RBC % (auto) 0 % 09/05/23 12:31 Nucleated RBCs # 0.0 /100WBC 09/05/23 12:31 PT 13.00 SECONDS (12.1-14.9) 09/05/23 12:31 INR 0.96 (0.8-1.2) 09/05/23 12:31 APTT 25.2 SECONDS (23.9-36.7) 09/05/23 12:31 Sodium 139 mmol/L (136-145) 09/05/23 12:31 Potassium 4.5 mmol/L (3.5-5.1) 09/05/23 12:31 Chloride 102 mmol/L (98-107) 09/05/23 12:31 Carbon Dioxide 27 mmol/L (22-29) 09/05/23 12:31 Anion Gap 14.5 (5-19) 09/05/23 12:31 BUN 15 mg/dL (6-20) 09/05/23 12:31 Creatinine 0.9 mg/dL (0.7-1.2) 09/05/23 12:31 GFR Calculation 87.0 mL/min (90-130) L 09/05/23 12:31 Glucose 205 mg/dL (65-115) H 09/05/23 12:31 Calculated Osmolality 295 mOsm/kg (285-295) 09/05/23 12:31 Calcium 9.8 mg/dL (8.5-10.5) 09/05/23 12:31 Total Bilirubin 1.4 mg/dL (0.15-1.2) H 09/05/23 12:31 AST 15 U/L (0-40) 09/05/23 12:31 ALT 13 U/L (0-41) 09/05/23 12:31 Alkaline Phosphatase 122 U/L (40-130) 09/05/23 12:31 Total Protein 7.1 g/dL (6.6-8.7) 09/05/23 12:31 Albumin 4.4 g/dL (3.5-5.2) 09/05/23 12:31 Globulin 2.7 g/dL (1.3-4.6) 09/05/23 12:31 No radiology studies performed this visit Discharge Plan Discharge Patient Disposition: Home Clinical Impression: External hemorrhoid, bleeding Condition: Stable Prescriptions: New hydrocortisone [Anusol-HC] 2.5 % cream with perineal applicator 1 applic [place] TID PRN (Reason: hemorrhoids) Qty: 30 0RF Tucks (witch marcus) 50 % pads, medicated 1 pad topical QID PRN (Reason: hemorrhoids) Qty: 100 0RF No Action sotalol [Betapace] 120 mg tablet 120 mg PO BID magnesium oxide 500 mg capsule 500 mg PO QAM aspirin [Adult Low Dose Aspirin] 81 mg tablet,delayed release (DR/EC) 81 mg PO QAM cholecalciferol (vitamin D3) 10 mcg (400 unit) capsule 10 mcg PO QAM clonazepam 1 mg Tablet 1 mg PO BID Multi-Vitamins Tablet 1 tab PO QAM hydrocodone-acetaminophen 5-325 mg tablet 1 tab PO Q6H PRN (Reason: pain) Qty: 14 0RF Naprosyn 500 mg tablet 500 mg PO BID PRN (Reason: pain) Qty: 20 0RF Discharge Orders: Discharge ED (Routine); Ordered 09/05/23 Ordered By: Hipolito Chavez Referrals: Baljinder Kraft DO [Physician] - Shira Farrell FNP [Primary Care Provider] - Discharge Diet: Advance as tolerated Discharge Activity: Resume usual activity Patient Instructions: Opioid Safety, Pain Management Coding Level of Care Code ED Metal Buffer for Suad Hicks
[2023-09-05 12:25] VITALS: BP 145/78; PULSE 88; RESP 17; TEMP 37; O2SAT 93; BMI 29.7
[2023-09-05 12:37] VITALS: BP 103/72; PULSE 88; RESP 17; O2SAT 95
[2023-09-05 12:40] LABS: Basophils # 0.1 10^3/uL (0.0-0.1); Eosinophils # 0.4 10^3/uL (0.0-0.8); Eosinophils % 4.6 %; Hematocrit 46.2 % (37-53); Lymphocytes # 1.7 10^3/uL (0.8-4.8); Lymphocytes % 20.7 %; Mean Corpuscular HGB Conc 33.1 g/dL (30-55); Mean Corpuscular Hemoglobin 29.6 pg (27-33); Mean Corpuscular Volume 89.4 fl (82-101); Mean Platelet Volume 8.9 fL (7.4-10.4); Monocytes # 0.8 10^3/uL (0.2-0.9); Neutrophils # 5.24 10^3/uL (1.8-7.7); Neutrophils % 63.3 %; Nucleated Red Blood Cells % 0 %; Platelet Count 284 10^3/cmm (157-399); Red Blood Count 5.17 10^6/uL (3.85-5.65); Red Cell Distribution Width 12.2 % (12.1-15.1); White Blood Count 8.27 10^3/uL (3.29-11.43)
[2023-09-05 12:51] LABS: INR 0.96 (0.8-1.2)
[2023-09-05 12:52] LABS: Partial Thromboplastin Time 25.2 SECONDS (23.9-36.7)
[2023-09-05 13:00] LABS: Alanine Aminotransferase 13 U/L (0-41); Albumin Level 4.4 g/dL (3.5-5.2); Alkaline Phosphatase 122 U/L (40-130); Anion Gap 14.5 (5-19); Aspartate Amino Transferase 15 U/L (0-40); Blood Urea Nitrogen 15 mg/dL (6-20); Calcium 9.8 mg/dL (8.5-10.5); Carbon Dioxide 27 mmol/L (22-29); Chloride 102 mmol/L (98-107); Globulin 2.7 g/dL (1.3-4.6); Glucose 205 mg/dL (65-115); Osmolality Calculated 295 mOsm/kg (285-295); Potassium 4.5 mmol/L (3.5-5.1); Sodium 139 mmol/L (136-145); Total Bilirubin 1.4 mg/dL (0.15-1.2); Total Protein 7.1 g/dL (6.6-8.7)
[2023-09-05 13:52] VITALS: BP 106/97; PULSE 77; O2SAT 97
== END 2023-09-05 13:53 | disposition home or self-care (01) ==
PROVIDERS: Emergency Provider Internal Medicine; PCP Nurse Practitioner Family
DX: K64.4 Residual hemorrhoidal skin tags (principal); Z79.82 Long term (current) use of aspirin; Z95.810 Presence of automatic (implantable) cardiac defibrillator; I11.0 Hypertensive heart disease with heart failure; I50.9 Heart failure, unspecified; E78.5 Hyperlipidemia, unspecified
CPT/HCPCS: 36415; 80053; 85025; 85610; 85730; 99283

== ENCOUNTER → 2023-09-24 14:41 | Outpatient (BNVA) | payer MEDICARE, MEDICAID, SELFPAY | PROVIDERS: PCP Nurse Practitioner Family; Referring Provider Nurse Practitioner Family; Visit Provider Physician Assistant | DX: M54.6 Pain in thoracic spine (principal); G89.29 Other chronic pain; M54.42 Lumbago with sciatica, left side; M54.41 Lumbago with sciatica, right side; Z95.0 Presence of cardiac pacemaker; Z46.89 Encounter for fitting and adjustment of other specified devices; M54.59 Other low back pain | CPT/HCPCS: 72072; 72100; 97760; 99204; L0637 ==

== ENCOUNTER 2023-09-24 15:42 | Outpatient (CLI) | payer MEDICARE, MEDICAID, SELFPAY | END 2023-09-24 15:43 | disposition home or self-care (01) | LOC: SPT 15:43 | PROVIDERS: PCP Nurse Practitioner Family; Visit Provider Physician Assistant | DX: Z46.89 Encounter for fitting and adjustment of other specified devices (principal); M54.59 Other low back pain | CPT/HCPCS: 97760; 99204; L0637 ==

== ENCOUNTER 2023-10-04 08:51 | Outpatient (CLI) | payer MEDICARE, MEDICAID, SELFPAY ==
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
== END 2023-10-04 08:52 | disposition home or self-care (01) ==
PROVIDERS: PCP Nurse Practitioner Family; Visit Provider Physician Assistant
DX: M40.204 Unspecified kyphosis, thoracic region (principal); M54.59 Other low back pain
CPT/HCPCS: 78306; A9561

== ENCOUNTER → 2023-11-28 09:46 | Outpatient (BNVA) | payer MEDICARE, MEDICAID, SELFPAY | PROVIDERS: PCP Nurse Practitioner Family; Visit Provider Nurse Practitioner Family | DX: Z95.810 Presence of automatic (implantable) cardiac defibrillator (principal); I25.10 Atherosclerotic heart disease of native coronary artery without angina pectoris; I48.11 Longstanding persistent atrial fibrillation; I11.0 Hypertensive heart disease with heart failure; I50.9 Heart failure, unspecified | CPT/HCPCS: 99214 ==

== ENCOUNTER 2023-12-17 09:44 | Emergency (ER) | payer MEDICARE, MEDICAID, SELFPAY ==
[2023-12-17 10:03] VITALS: BP 138/90; PULSE 78; RESP 18; TEMP 36.7; O2SAT 97; BMI 31.6
--- NOTE | 2023-12-17 10:26 | W.ED.GENADLT ---
HPI - General Adult General: Chief complaint: Arrhythmia/Palpitations Stated complaint: nausea, elevated hr Time Seen by Provider: 12/17/23 10:16 Source: patient Mode of arrival: ambulatory Limitations: no limitations History of Present Illness: Patient is a 58-year-old male presents to ED today stating he feels like his thyroid is acting up . Patient feels like he is going into a thyroid storm crisis. Patient states back in the late 90s he had issues with hyperthyroidism and was following up with endocrinology. He states he has not had any issues since. Patient states over the past several days he has felt anxious stating my anxiety has been through the roof , shaky, having insomnia, mood swings, intermittent palpitations, and feels nauseous after eating. He states he does have a diagnosis of anxiety and depression. Patient states he has been through a lot over the past year. He arrives in no acute distress with completely normal vital signs. Patient's PMH does include HTN, hyperlipidemia, nonischemic cardiomyopathy. Patient does not complain of any chest pain, shortness of breath, difficulty breathing, weight gain, lower extremity swelling, PND, or orthopnea. Onset (ago): day(s) Severity: moderate Relieving factors: none Exacerbating factors: none Associated symptoms: Reports nausea (only after eating) and palpitations (intermittent); Deny chest pain, dyspnea, headache(s), malaise, rash, syncope or vomiting Treatments prior to arrival: none Review of Systems Const: Denies: fever(s), chills, body aches, fatigue or malaise Eyes: Denies: change in vision or blurry vision Card: Reports: palpitations (intermittent); Denies: chest pain, irregular heart rhythm, edema, swelling of feet/ankles, lightheadedness, syncope, pre-syncope, dyspnea on exertion, orthopnea, leg pain with exertion or acrocyanosis Resp: Denies: dyspnea, productive cough or pain on inspiration GI: Reports: nausea (only after eating); Denies: abdominal pain, vomiting, heartburn or diarrhea : Denies: difficulty urinating or dysuria Musc: Denies: neck pain, back pain, extremity pain, extremity swelling or joint pain Skin/Breast: Denies: rash Neuro: Denies: headache(s), numbness in extremities, weakness in extremities, sensory changes or dizziness Psych: Reports: anxiety [facility] ED PFS: Medical History Ingrown toenail of right foot with infection Atrial fibrillation Remains in sinus rhythm. Continue current regimen Hypertension -initially hypertensive, BP well controlled -on oral antihypertensives -continue to monitor vital signs Elevated troponin -noted troponins with 2-hr delta of 10.40, 6hr troponin lower with no significant delta -serial ECGs, so far, no acute ischemic changes -telemetry monitoring -has known hx of non-ischemic cardiomyopathy s/p pacemaker/AICD -had prior nuclear stress testing done in 05/2019 showing small sized reversible perfusion abnormality of mild severity of apical inferior and apical lateral doherty that may represent small area of ischemia in LAD territory -Cardiology evaluation by Dr. Mendoza appreciated; IV diuresis -VSS; continue to monitor -received dose of therapeutic lovenox, ASA 325 mg in ED -on ASA -Echo (05/2019): EF=61%, G1DD, trace MR, trace to mild TR, trace [place] -noted lipid panel, A1c, TSH; start on statin -PAULINA -CXR unremarkable -unable to tolerate Imdur, persistent DUNN Anxiety -f/u at [facility] -on Clonazepam Depression IBS (irritable bowel syndrome) GERD (gastroesophageal reflux disease) ASHD (arteriosclerotic heart disease) Hyperlipidemia -started on statin, noted lipid panel CHF (congestive heart failure) -acute exacerbation, BNP-73 -Echo (05/2019): EF=61%, G1DD, trace MR, trace to mild TR, trace WI -not on chronic diuretics; on IV Lasix -daily weights, monitor Is & Os; total negative fluid balance of 3.2 L Nonischemic cardiomyopathy -f/u with Dr. Welsh -has pacemaker and AICD, no recent firing Surgical History S/P appendectomy S/P cholecystectomy S/P ICD (internal cardiac defibrillator) procedure Family History Mother Cancer Social History Smoking and tobacco/nicotine status: never used tobacco/nicotine Alcohol intake: former Substance/Drug Use: never Lives independently: Yes Physical Exam Const: COMMON NORMALS: no acute distress, average body habitus, patient oriented x3, no limitations, healthy appearing, alert and well nourished GENERAL APPEARANCE: cooperative ORIENTATION/CONSCIOUSNESS: Yes awake, Yes oriented to person, Yes oriented to place and Yes oriented to time HENMT: COMMON NORMALS: normocephalic and atraumatic HEAD & SCALP: normocephalic and atraumatic Neck/C-Spine: COMMON NORMALS: full ROM, no lymphadenopathy, supple and no meningeal signs Chest: COMMONS NORMALS: normal inspection of the chest Resp: COMMON NORMALS: normal respiratory effort and clear to auscultation bilaterally AUSCULTATION: clear to auscultation bilaterally Cardio: COMMON NORMALS: regular rate and regular rhythm RATE: regular rate RHYTHM: regular rhythm GI: COMMON NORMALS: Normal to inspection, nondistended, normoactive bowel sounds present, Soft to palpation, non-tender, No hepatosplenomegaly present and no masses PALPATION: Yes Soft to palpation and Yes No hepatosplenomegaly present : COMMON NORMALS: Yes no CVA tenderness BLADDER/KIDNEY EXAM: Yes no CVA tenderness Back/Pelvis: COMMON NORMALS: no CVA tenderness and thoracic and lumbar spine normal to inspection Extremity: COMMON NORMALS: normal to inspection GENERAL: Yes normal exam except as noted Neuro: MINDY COMA SCALE: document GCS findings [place] coma scale eye opening: Spontaneous [place] coma scale verbal response: Orientated [place] coma scale motor response: Obey commands [place] coma scale total score: 15 COMMON NORMALS: patient oriented x3 SENSORIUM/ORIENTATION: Yes alert, Yes oriented to person, Yes oriented to place and Yes oriented to time MENINGEAL SIGNS: Yes no meningeal signs Skin: COMMON NORMALS: no rashes or lesions noted GENERAL SKIN EXAM: no rashes or lesions noted Course Vital Signs: Vital signs: Vital Signs Temperature 98.0 F 12/17/23 10:03 Pulse Rate 78 12/17/23 10:03 Respiratory Rate 18 12/17/23 10:03 Blood Pressure 138/90 12/17/23 10:03 Pulse Oximetry 97 12/17/23 10:03 Oxygen Delivery Me thod Room Air 12/17/23 10:03 [facility] - General Adult Medical Decision Making Patient appears in no acute distress. Vital signs are stable. He does not meet any diagnostic criteria for thyroid storm. His blood work is unremarkable. TSH is normal. EKG showing no acute changes when compared to previous. Recommend follow-up with primary care provider. Suspect some of his symptoms related to anxiety. Return precautions given. Medical Records I reviewed the patient's medical records. Lab Data I reviewed the patient's lab results. 12/17/23 10:28 12/17/23 10:28 Laboratory Results WBC 6.92 10^3/uL (3.29-11.43) 12/17/23 10:28 RBC 5.26 10^6/uL (3.85-5.65) 12/17/23 10:28 Hgb 15.80 g/dL (11.27-16.99) 12/17/23 10:28 Hct 47.1 % (37-53) 12/17/23 10:28 MCV 89.5 fl (82-101) 12/17/23 10:28 MCH 30.0 pg (27-33) 12/17/23 10:28 MCHC 33.5 g/dL (30-55) 12/17/23 10:28 RDW 12.4 % (12.1-15.1) 12/17/23 10:28 Plt Count 227 10^3/cmm (157-399) 12/17/23 10:28 MPV 9.2 fL (7.4-10.4) 12/17/23 10:28 Neut % (Auto) 66.7 % 12/17/23 10:28 Lymph % (Auto) 16.5 % 12/17/23 10:28 [place] % (Auto) 10.7 % 12/17/23 10:28 Eos % (Auto) 5.2 % 12/17/23 10:28 Baso % (Auto) 0.6 % 12/17/23 10:28 Neut # (Auto) 4.62 10^3/uL (1.8-7.7) 12/17/23 10:28 Lymph # (Auto) 1.1 10^3/uL (0.8-4.8) 12/17/23 10:28 [place] # (Auto) 0.7 10^3/uL (0.2-0.9) 12/17/23 10:28 Eos # (Auto) 0.4 10^3/uL (0.0-0.8) 12/17/23 10:28 Baso # (Auto) 0.0 10^3/uL (0.0-0.1) 12/17/23 10:28 Nucleated RBC % (auto) 0 % 12/17/23 10:28 Nucleated RBCs # 0.0 /100WBC 12/17/23 10:28 Sodium 137 mmol/L (136-145) 12/17/23 10:28 Potassium 4.4 mmol/L (3.5-5.1) 12/17/23 10:28 Chloride 104 mmol/L (98-107) 12/17/23 10:28 Carbon Dioxide 24 mmol/L (22-29) 12/17/23 10:28 Anion Gap 13.4 (5-19) 12/17/23 10:28 BUN 12 mg/dL (6-20) 12/17/23 10:28 Creatinine 0.7 mg/dL (0.7-1.2) 12/17/23 10:28 GFR Calculation 115.8 mL/min (90-130) 12/17/23 10:28 Glucose 151 mg/dL (65-115) H 12/17/23 10:28 Calculated Osmolality 287 mOsm/kg (285-295) 12/17/23 10:28 Calcium 9.1 mg/dL (8.5-10.5) 12/17/23 10:28 Total Bilirubin 2.0 mg/dL (0.15-1.2) H 12/17/23 10:28 AST 19 U/L (0-40) 12/17/23 10:28 ALT 15 U/L (0-41) 12/17/23 10:28 Alkaline Phosphatase 111 U/L (40-130) 12/17/23 10:28 Troponin T Baseline 15 ng/L (0-15) 12/17/23 10:28 Total Protein 6.7 g/dL (6.6-8.7) 12/17/23 10:28 Albumin 4.4 g/dL (3.5-5.2) 12/17/23 10:28 Globulin 2.3 g/dL (1.3-4.6) 12/17/23 10:28 TSH 1.45 uIU/mL (0.27-4.20) 12/17/23 10:28 No radiology studies performed this visit Discharge Plan Discharge Patient Disposition: Home Clinical Impression: Feared condition not demonstrated, Anxiety Condition: Stable Prescriptions: No Action sotalol [Betapace] 120 mg tablet 120 mg PO BID magnesium oxide 500 mg capsule 500 mg PO QAM aspirin [Adult Low Dose Aspirin] 81 mg tablet,delayed release (DR/EC) 81 mg PO QAM cholecalciferol (vitamin D3) 10 mcg (400 unit) capsule 10 mcg PO QAM (DME) LSO Brace See Rx Instructions .Route .MEDSUPPLY Qty: 1 0RF Rx Instructions: As directed clonazepam 1 mg Tablet 1 mg PO BID multivitamin [Multi-Vitamins] Tablet 1 tab PO QAM naproxen [Naprosyn] 500 mg tablet 500 mg PO BID PRN (Reason: pain) Qty: 20 0RF Discharge Orders: Discharge ED (Routine); Ordered 12/17/23 Ordered By: Leticia Mccormick Referrals: Jennifer Hearn, MSN, POTABLE WATER TREATMENT OPERATOR, PMHNP, PROFESSOR OF PHYSICAL EDUCATION [Primary Care Provider] - Activity Restrictions/Additional Instructions: As we discussed, based on your visit today I do not have any concern for a thyroid storm like crisis. I would like you to speak to your primary care provider about better control of your anxiety. Coding Level of Care Code ED Ship Self Defense System Mk1 Operator for Suad Hicks
--- NOTE | 2023-12-17 10:29 | ECG_ITS ---
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 Measurements Intervals [place] Rate: 78 P: 54 TN: 171 QRS: 50 QRSD: 98 T: 52 QT: 356 QTc: 407 Interpretive Statements SINUS RHYTHM POSSIBLE LEFT ATRIAL ENLARGEMENT [-0.1mV P-WAVE IN V1/V2] MINIMAL ST DEPRESSION [0.025+ mV ST DEPRESSION] Compared to ECG 06/22/2023 10:48:32 No significant changes Electronically Signed On 12-17-2023 18:26:06 LDR RN by Viviana Hernández M.D. [id number]
[2023-12-17 10:47] LABS: Basophils % 0.6 %; Eosinophils # 0.4 10^3/uL (0.0-0.8); Eosinophils % 5.2 %; Hematocrit 47.1 % (37-53); Lymphocytes # 1.1 10^3/uL (0.8-4.8); Lymphocytes % 16.5 %; Mean Corpuscular HGB Conc 33.5 g/dL (30-55); Mean Corpuscular Volume 89.5 fl (82-101); Mean Platelet Volume 9.2 fL (7.4-10.4); Monocytes # 0.7 10^3/uL (0.2-0.9); Monocytes % 10.7 %; Neutrophils # 4.62 10^3/uL (1.8-7.7); Neutrophils % 66.7 %; Nucleated Red Blood Cells % 0 %; Platelet Count 227 10^3/cmm (157-399); Red Blood Count 5.26 10^6/uL (3.85-5.65); Red Cell Distribution Width 12.4 % (12.1-15.1); White Blood Count 6.92 10^3/uL (3.29-11.43)
[2023-12-17 11:08] LABS: Troponin(5th) Baseline 15 ng/L (0-15)
[2023-12-17 11:17] LABS: Alanine Aminotransferase 15 U/L (0-41); Albumin Level 4.4 g/dL (3.5-5.2); Alkaline Phosphatase 111 U/L (40-130); Aspartate Amino Transferase 19 U/L (0-40); Blood Urea Nitrogen 12 mg/dL (6-20); Calcium 9.1 mg/dL (8.5-10.5); Carbon Dioxide 24 mmol/L (22-29); Chloride 104 mmol/L (98-107); Globulin 2.3 g/dL (1.3-4.6); Glomerular Filtration Rate 115.8 mL/min (90-130); Glucose 151 mg/dL (65-115); Osmolality Calculated 287 mOsm/kg (285-295); Sodium 137 mmol/L (136-145); Thyroid Stimulating Hormone 1.45 uIU/mL (0.27-4.20); Total Protein 6.7 g/dL (6.6-8.7)
[2023-12-17 11:21] LABS: Anion Gap 13.4 (5-19); Potassium 4.4 mmol/L (3.5-5.1)
== END 2023-12-17 11:45 | disposition home or self-care (01) ==
PROVIDERS: Emergency Provider Physician Assistant; PCP Nurse Practitioner Family
DX: Z03.89 Encounter for observation for other suspected diseases and conditions ruled out (principal); F41.9 Anxiety disorder, unspecified; Z79.82 Long term (current) use of aspirin; Z95.810 Presence of automatic (implantable) cardiac defibrillator; E78.5 Hyperlipidemia, unspecified; I11.0 Hypertensive heart disease with heart failure; I50.9 Heart failure, unspecified; I43 Cardiomyopathy in diseases classified elsewhere
CPT/HCPCS: 80053; 84443; 84484; 85025; 93005; 99284

== ENCOUNTER 2024-01-14 15:09 | Outpatient (CLI) | payer MEDICARE, MEDICAID, SELFPAY ==
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
== END 2024-01-14 15:10 | disposition home or self-care (01) ==
LOC: RAD 15:09
PROVIDERS: PCP Nurse Practitioner Family; Visit Provider Nurse Practitioner Family
DX: Z47.89 Encounter for other orthopedic aftercare (principal); Z98.1 Arthrodesis status
CPT/HCPCS: 73000

== ENCOUNTER → 2024-10-21 09:15 | Outpatient (BNVA) | payer MEDICARE, MEDICAID, SELFPAY | PROVIDERS: PCP Family Medicine; Visit Provider Podiatrist Foot & Ankle Surgery | DX: L60.8 Other nail disorders (principal); L60.3 Nail dystrophy | CPT/HCPCS: 11730; 99203 ==

== ENCOUNTER 2025-10-12 04:45 | Emergency (ER) | payer MEDICARE, MEDICAID, SELFPAY ==
[2025-10-12] VITALS (9 sets, daily range): BP systolic 90–142; BP diastolic 49–72; PULSE 64–71; RESP 13–20; TEMP 36.7; O2SAT 95–98; BMI 30.8
--- NOTE | 2025-10-12 04:51 | ECG_ITS ---
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 Measurements Intervals [place] Rate: 70 P: 69 AR: 172 QRS: 68 QRSD: 104 T: 64 QT: 396 QTc: 427 Interpretive Statements SINUS RHYTHM Compared to ECG 12/17/2023 10:05:04 NO SIGNIFICANT CHANGE Electronically Signed On 10-14-2025 16:15:23 API ARCHITECT by Armando López M.D. [id number]
--- NOTE | 2025-10-12 04:51 | XRR_ITS ---
PROCEDURE INFORMATION: Exam: XR Chest Exam date and time: 10/12/2025 4:58 AM Age: 60 years old Clinical indication: Shortness of breath TECHNIQUE: Imaging protocol: Radiologic exam of the chest. Views: 1 view. COMPARISON: CR XR ribs RT mn 3V w CXR1V [id number] 08/22/2023 10:10 AM FINDINGS: Tubes, catheters and devices: Left-sided pacer is in position leads overlying the atrium and ventricle Lungs: Unremarkable. No consolidation. Pleural spaces: Unremarkable. No pleural effusion. No pneumothorax. Heart/Mediastinum: Unremarkable. No cardiomegaly. Bones/joints: Patient is status post surgical fixation of fracture left clavicle with plate and screws these findings stable. XR/XR chest 1V portable [id number] IMPRESSION: No acute cardiopulmonary process demonstrated.
--- NOTE | 2025-10-12 04:52 | W.ED.GENADLT ---
HPI - General Adult General: Chief complaint: Chest Pain Stated complaint: Sob Time Seen by Provider: 10/12/25 04:50 History of Present Illness: Patient is a 60-year-old male with past medical history of hypertension, hyperlipidemia, nonischemic cardiomyopathy with a EF of 55 to 60% on most recent EF, atrial fibrillation (not on anticoagulation), ICD placement w/cc of shortness of breath and chest pressure. Patient states that he feels like there is an elephant sitting on my chest. It is nonexertional and does not radiate. Not a/w vomiting, diaphoresis. This has been ongoing since yesterday. He was seen at [place] in the emergency department yesterday, had a workup done including lab work, CXR and CT chest w/IV contrast to look for a blood clot. Presume this is CT PE protocol. CT imaging showed possible dilatation of the pulmonary artery, patient was referred to an outpatient appointment with Dr. Nguyen on November 08. He states he feels the same as when he left the emergency department, and states he continues to breathe funny. He states he feels short of breath despite no increase in work of breathing, no accessory muscle use and SpO2 of 99% on room air. Patient denies fever, cough, hemoptysis, syncope or leg swelling. He does not have a history of DVT or PE. Patient feels mildly nauseated but he denies any abdominal pain, vomiting, diarrhea or dysuria. Patient states that he is scared, and is not ready to . Patient has not noted any shocks from his ICD, states he has not had any events. Related Data Home Medications ?Medication ?Instructions ?Recorded ?Confirmed sotalol 120 mg tablet (Betapace) 120 mg PO BID 02/24/20 10/21/24 magnesium oxide 500 mg capsule 500 mg PO QAM 02/25/20 10/21/24 aspirin 81 mg tablet,delayed 81 mg PO QAM 05/13/23 10/21/24 release (Adult Low Dose Aspirin) clonazepam 1 mg tablet 1 mg PO BID 06/05/23 10/21/24 multivitamin 1 tab PO QAM 08/22/23 10/21/24 Previous Rx's ?Medication ?Instructions ?Recorded naproxen 500 mg tablet (Naprosyn) 500 mg PO BID PRN pain #20 tabs 11/09/23 LSO Brace #1 ea 09/24/23 Allergies Allergy/AdvReac Type Severity Reaction Status Date / Time diazepam Allergy Unknown Unknown Verified 10/12/25 04:57 muscle relaxers Allergy Unknown Uncoded 10/12/25 04:57 [facility] ED [facility]: Medical History (Updated 10/12/25 @ 05:47 by Precious Aragon MD) Ingrown toenail of right foot with infection Atrial fibrillation Remains in sinus rhythm. Continue current regimen Hypertension -initially hypertensive, BP well controlled -on oral antihypertensives -continue to monitor vital signs Elevated troponin -noted troponins with 2-hr delta of 10.40, 6hr troponin lower with no significant delta -serial ECGs, so far, no acute ischemic changes -telemetry monitoring -has known hx of non-ischemic cardiomyopathy s/p pacemaker/AICD -had prior nuclear stress testing done in 05/2019 showing small sized reversible perfusion abnormality of mild severity of apical inferior and apical lateral doherty that may represent small area of ischemia in LAD territory -Cardiology evaluation by Dr. Mendoza appreciated; IV diuresis -VSS; continue to monitor -received dose of therapeutic lovenox, ASA 325 mg in ED -on ASA -Echo (05/2019): EF=61%, G1DD, trace MR, trace to mild TR, trace [place] -noted lipid panel, A1c, TSH; start on statin -PAULINA -CXR unremarkable -unable to tolerate Imdur, persistent DUNN Anxiety -f/u at [facility] -on Clonazepam Depression IBS (irritable bowel syndrome) GERD (gastroesophageal reflux disease) ASHD (arteriosclerotic heart disease) Hyperlipidemia -started on statin, noted lipid panel CHF (congestive heart failure) -acute exacerbation, BNP-73 -Echo (05/2019): EF=61%, G1DD, trace MR, trace to mild TR, trace [place] -not on chronic diuretics; on IV Lasix -daily weights, monitor Is & Os; total negative fluid balance of 3.2 L Nonischemic cardiomyopathy -f/u with Dr. Welsh -has pacemaker and AICD, no recent firing Surgical History S/P appendectomy S/P cholecystectomy S/P ICD (internal cardiac defibrillator) procedure Family History Mother Cancer Social History Smoking and tobacco/nicotine status: never used tobacco/nicotine Alcohol intake: former Substance/Drug Use: never Lives independently: Yes Physical Exam Narrative: EXAM NARRATIVE: Vital signs were reviewed. Patient is alert and oriented. Patient is breathing comfortably, no increased WOB or accessory muscle use. SpO2 is above 95% on RA. Patient has clear lungs b/l, no rhonchi, wheezing or crackles. No hypotension or tachycardia. Abdomen is soft, nondistended and nontender. No CVA tenderness w/percussion of the flanks. Patient is moving all extremities, no deformity or gross injury. No lower extremity edema or asymmetry. Course Vital Signs: Vital signs: Vital Signs Temperature 98.0 F 10/12/25 04:49 Pulse Rate 71 10/12/25 07:16 Respiratory Rate 13 10/12/25 07:05 Blood Pressure 104/69 10/12/25 07:16 Pulse Oximetry 98 10/12/25 07:16 Oxygen Delivery Me thod Room Air 10/12/25 05:38 MDM - General Adult Medical Decision Making 60yo M w/pmhx of hypertension, hyperlipidemia, nonischemic cardiomyopathy with a EF of 55 to 60% on most recent EF, atrial fibrillation (not on anticoagulation), ICD placement presents with a chief complaint of pressure-like chest pain, nonexertional, nonradiating, and subjective shortness of breath. Differential diagnosis includes, but is not limited to, ACS, myocarditis, pericarditis, pneumonia, viral upper respiratory infection, PE, GERD, other. On initial exam, patient is hemodynamically stable nontoxic appearing. EKG was personally reviewed and interpreted and shows no STEMI. Patient was treated with aspirin, nitroglycerin and Ativan for anxiety. Patient was evaluate CBC, CMP, troponin, BNP, EKG, chest x-ray and COVID and flu screen. Patient has a normal white blood cell count, he is not anemic, patient does not have any electrolyte abnormalities, he has normal kidney function, liver function. Patient has a normal D dimer. I was able to obtain CTA imaging done 10/10 for similar and confirm that there was no PE present. Study is limited and cannot be evaluated beyond segmental level however with no increased WOB, SpO2 of 99%, no tachypnea, no EKG changes, normal D dimer, my suspicion for PE is exceedingly low. He has a normal troponin, negative delta. Negative for flu/covid. Patient is approrpiate for outpatient f/u w/cardiology as scheduled. Lab Data 10/12/25 04:50 10/12/25 04:50 Radiology Impressions Chest X-Ray 10/12/25 04:51 IMPRESSION: No acute cardiopulmonary process demonstrated. Laboratory Results WBC 7.43 10^3/uL (3.29-11.43) 10/12/25 04:50 RBC 5.01 10^6/uL (3.85-5.65) 10/12/25 04:50 Hgb 14.80 g/dL (11.27-16.99) 10/12/25 04:50 Hct 44.3 % (37-53) 10/12/25 04:50 MCV 88.4 fl (82-101) 10/12/25 04:50 MCH 29.5 pg (27-33) 10/12/25 04:50 MCHC 33.4 g/dL (30-55) 10/12/25 04:50 RDW 12.9 % (12.1-15.1) 10/12/25 04:50 Plt Count 240 10^3/cmm (157-399) 10/12/25 04:50 MPV 8.9 fL (7.4-10.4) 10/12/25 04:50 Neut % (Auto) 56.3 % 10/12/25 04:50 Lymph % (Auto) 26.2 % 10/12/25 04:50 [place] % (Auto) 11.7 % 10/12/25 04:50 Eos % (Auto) 5.0 % 10/12/25 04:50 Baso % (Auto) 0.7 % 10/12/25 04:50 Neut # (Auto) 4.18 10^3/uL (1.8-7.7) 10/12/25 04:50 Lymph # (Auto) 2.0 10^3/uL (0.8-4.8) 10/12/25 04:50 [place] # (Auto) 0.9 10^3/uL (0.2-0.9) 10/12/25 04:50 Eos # (Auto) 0.4 10^3/uL (0.0-0.8) 10/12/25 04:50 Baso # (Auto) 0.1 10^3/uL (0.0-0.1) 10/12/25 04:50 Nucleated RBC % (auto) 0 % 10/12/25 04:50 Nucleated RBCs # 0.0 /100WBC 10/12/25 04:50 D-Dimer 0.58 ug/mLFEU (0-0.59) 10/12/25 04:50 Sodium 142 mmol/L (136-145) 10/12/25 04:50 Potassium 4.1 mmol/L (3.5-5.1) 10/12/25 04:50 Chloride 104 mmol/L (98-107) 10/12/25 04:50 Carbon Dioxide 27 mmol/L (22-29) 10/12/25 04:50 Anion Gap 15.1 (5-19) 10/12/25 04:50 BUN 11 mg/dL (8-23) 10/12/25 04:50 Creatinine 0.7 mg/dL (0.7-1.2) 10/12/25 04:50 GFR Calculation 115.0 mL/min (90-130) 10/12/25 04:50 Glucose 186 mg/dL (65-115) H 10/12/25 04:50 Calculated Osmolality 298 mOsm/kg (285-295) H 10/12/25 04:50 Calcium 9.5 mg/dL (8.5-10.5) 10/12/25 04:50 Total Bilirubin 1.6 mg/dL (0.15-1.2) H 10/12/25 04:50 AST 15 U/L (0-40) 10/12/25 04:50 ALT 9 U/L (0-41) 10/12/25 04:50 Alkaline Phosphatase 113 U/L (40-130) 10/12/25 04:50 Troponin T Baseline 9 ng/L (0-15) 10/12/25 04:50 Troponin T 60 Minute 9.37 ng/L (0-15) 10/12/25 06:20 Delta Troponin T 0.37 ABS# (0-10) 10/12/25 06:20 NT-Pro-B Natriuret Pep 213 pg/mL (0-125) H 10/12/25 04:50 Total Protein 6.3 g/dL (6.6-8.7) L 10/12/25 04:50 Albumin 4.5 g/dL (3.5-5.2) 10/12/25 04:50 Globulin 1.8 g/dL (1.3-4.6) 10/12/25 04:50 Influenza A (PCR) Negative (Negative) 10/12/25 04:56 Influenza Type B (PCR) Negative (Negative) 10/12/25 04:56 RSV (PCR) Negative (Negative) 10/12/25 04:56 SARS-CoV-2 (PCR) Negative (Negative) 10/12/25 04:56 All radiology interpretation(s) finalized by discharge EKG Data EKG 1: Interpretation: Normal sinus rhythm with a heart rate of 70, normal axis, normal QT/QTc, mild prolongation of QRS >100ms, no STEMI or ischemic change. Computer generated interpretation: Chest X-Ray 10/12/25 04:51 IMPRESSION: No acute cardiopulmonary process demonstrated. Discharge Plan Discharge Patient Disposition: Home Clinical Impression: Breath shortness, Anxiety Chest pain Qualifiers: Chest pain type: unspecified Qualified Code(s): R07.9 - Chest pain, unspecified Condition: Stable Prescriptions: No Action sotalol [Betapace] 120 mg tablet 120 mg PO BID magnesium oxide 500 mg capsule 500 mg PO QAM aspirin [Adult Low Dose Aspirin] 81 mg tablet,delayed release (DR/EC) 81 mg PO QAM (DME) LSO Brace See Rx Instructions .Route .MEDSUPPLY Qty: 1 0RF Rx Instructions: As directed clonazepam 1 mg Tablet 1 mg PO BID multivitamin [Multi-Vitamins] Tablet 1 tab PO QAM naproxen [Naprosyn] 500 mg tablet 500 mg PO BID PRN (Reason: pain) Qty: 20 0RF Discharge Orders: Discharge ED (Routine); Ordered 10/12/25 Ordered By: Herber Espinoza Referrals: Mk Cunningham [Primary Care Provider, Family Practice] Discharge Diet: Advance as tolerated Discharge Activity: Resume usual activity Patient Instructions: Angina (ED), Dyspnea (ED), Anxiety (ED), Opioid Safety, Pain Management, Patient Portal & Monica Instructions Activity Restrictions/Additional Instructions: Please continue to monitor your condition closely at home. If your condition worsens or additional concerns arise, please return promptly to the emergency department for reassessment. Follow up with your primary care doctor in one week. Please follow up with Dr. Mendoza as scheduled on November 08. Print Language: [place] Coding Level of Care Code ED Fac Engineer for Suad Hicks
[2025-10-12 04:59] LABS: Hematocrit 44.3 % (37-53); Hemoglobin 14.80 g/dL (11.27-16.99); Mean Corpuscular HGB Conc 33.4 g/dL (30-55); Mean Corpuscular Hemoglobin 29.5 pg (27-33); Mean Corpuscular Volume 88.4 fl (82-101); Nucleated Red Blood Cells % 0 %; Platelet Count 240 10^3/cmm (157-399); Red Blood Count 5.01 10^6/uL (3.85-5.65); White Blood Count 7.43 10^3/uL (3.29-11.43)
[2025-10-12 05:24] LABS: Alanine Aminotransferase 9 U/L (0-41); Albumin Level 4.5 g/dL (3.5-5.2); Alkaline Phosphatase 113 U/L (40-130); Aspartate Amino Transferase 15 U/L (0-40); Blood Urea Nitrogen 11 mg/dL (8-23); Calcium 9.5 mg/dL (8.5-10.5); Carbon Dioxide 27 mmol/L (22-29); Chloride 104 mmol/L (98-107); Globulin 1.8 g/dL (1.3-4.6); Glucose 186 mg/dL (65-115); Osmolality Calculated 298 mOsm/kg (285-295); Sodium 142 mmol/L (136-145); Total Protein 6.3 g/dL (6.6-8.7)
[2025-10-12 05:32] LABS: Anion Gap 15.1 (5-19); Potassium 4.1 mmol/L (3.5-5.1)
[2025-10-12 05:43] LABS: Troponin(5th) Baseline 9 ng/L (0-15)
--- NOTE | 2025-10-12 05:51 | ECG_ITS ---
[facility]: [facility] Pat Name: Andi Garcia Department: Room: Gender: Male Rn Postpartum: : 1965 Requested By: Precious Aragon Order Number: [id number] Karen MD: MARIIA CASSIDY Measurements Intervals [place] Rate: 67 P: 57 OK: 180 QRS: 61 QRSD: 105 T: 58 QT: 417 QTc: 440 Interpretive Statements SINUS RHYTHM Compared to ECG 10/12/2025 04:53:47 No significant changes Electronically Signed On 10-14-2025 18:51:10 CARE ASSISTANT by MARIIA CASSIDY [email or web address]
[2025-10-12 06:19] LABS: Respiratory Syncytial Virus Ce NEGATIVE (Negative); SARS-CoV-2 PCR NEGATIVE (Negative)
[2025-10-12 06:31] LABS: NT Pro B Type Natriuretic Pept 213 pg/mL (0-125)
== END 2025-10-12 07:16 | disposition home or self-care (01) ==
PROVIDERS: Emergency Provider Emergency Medicine; PCP Family Medicine
DX: R06.02 Shortness of breath (principal); F41.9 Anxiety disorder, unspecified; R07.9 Chest pain, unspecified; Z79.82 Long term (current) use of aspirin; Z11.52 Encounter for screening for COVID-19; E78.5 Hyperlipidemia, unspecified; I11.0 Hypertensive heart disease with heart failure; I50.9 Heart failure, unspecified
CPT/HCPCS: 36415; 71045; 80053; 83880; 84484; 85025; 85378; 87637; 93005; 99285; J9999